=== PATIENT | female | born 1950 | race Caucasian/White ===

== ENCOUNTER 2018-11-07 20:19 | Inpatient (IN) | payer OTHER ==
[~2018-11-07] VITALS: Ht 162.6 cm; Wt 59.2 kg
[~2018-11-07 20:19] MED LIST: LEVO137T7; SERT50TA
[2018-11-07] MEDS ORDERED: CEFEPIME 2GM/50 ML (PMX) 50 ML IVPB STA (20:24)
[2018-11-07] MEDS ORDERED: SODIUM CHLORIDE 0.9% 1L BAG IV* STA (20:24)
[2018-11-07] MEDS ORDERED: VANCOMYCIN 1 GM (PMX) 250 ML IVPB ONE (20:30)
--- NOTE | 2018-11-07 20:43 | ERD ---
ER Documentation Chief Complaint Chief Complaint bib ra from halfway for possible stemi / weakness, HPI This is a 68-year-old female with a prior history of metastatic renal cancer, which involves the bones, and the brain, who presents for altered mental state. History was limited secondary to the acuity of the patient's condition. She was brought in by EMS, reportedly she is a no x4 at baseline, and today she has been nonverbal. Per the run, she has been hot to the touch, she does have a history of a pacemaker, and was noted to be tachycardic on arrival. She is coming from a intermediate facility, and she had a prolonged stay at [facility]. ROS All systems reviewed and are negative except as per history of present illness. Medications Home Meds Reported Medications Sertraline Hcl* (Zoloft*) 50 Mg Tablet 10/30/10 Levothyroxine Sodium (Levothroid) 137 Mcg Tablet 10/30/10 Allergies Allergies: Coded Allergies: No Known Allergies (Verified Allergy, Mild, 10/30/10) PMhx/Soc History of Surgery: Yes (PACEMAKER INSERTION/CYST REMOVED FROM RT BREAST SHOULDER SX/WRIST SX) Anesthesia Reaction: No Hx Neurological Disorder: No Hx Respiratory Disorders: Yes (SLEEP APNEA ON CPAP) Hx Psychiatric Problems: No Hx Miscellaneous Medical Probl: No Hx Alcohol Use: No Hx Substance Use: No Hx Tobacco Use: No Smoking Status: Never smoker Physical Exam Vitals Vital Signs Date Temp Pulse Resp B/P (MAP) Pulse Ox O2 O2 Flow FiO2 Time Delivery Rate 11/07/18 Nasal 2 20:27 Cannula 11/07/18 Nasal 2.0 20:27 Cannula 11/07/18 101.0 115 20 115/82 90 Nasal 20:27 (93) Cannula 11/07/18 101.0 117 25 115/82 96 20:22 (93) Physical Exam Const: Ill-appearing 68-year-old female, who is opening her eyes sp ontaneously, but is nonverbal, she is hot to the touch. Head: Atraumatic, no hematomas noted Eyes: Normal Conjunctiva, pupils equal round reactive to light ENT: Normal External Ears, Nose and Mouth. Neck: Full range of motion. No meningismus. Resp: Breath sounds are coarse bilaterally Cardio: Tachycardic, no murmurs Abd: Soft, non tender, non distended. Normal bowel sounds Skin: No petechiae or rashes Back: No midline or flank tenderness Ext: No cyanosis, or edema Neur: Patient is awake, responds to voice, nonverbal Psych: Unable to assess Result Diagram: 11/07/18202911/07/182029 Results 24 hrs Laboratory Tests Test 11/07/18 20:30 White Blood Count 11.0 10^3/ul Red Blood Count 3.67 10^6/ul Hemoglobin 10.2 g/dl Hematocrit 30.5 % Mean Corpuscular Volume 83.1 fl Mean Corpuscular Hemoglobin 27.8 pg Mean Corpuscular Hemoglobin Concent 33.4 g/dl Red Cell Distribution Width 17.1 % Platelet Count 39 10^3/UL Mean Platelet Volume 11.5 fl Immature Granulocytes % 3.100 % Neutrophils % % Lymphocytes % % Monocytes % % Eosinophils % % Basophils % % Nucleated Red Blood Cells % 0.2 /100WBC Immature Granulocytes # 0.340 10^3/ul Neutrophils # 10^3/ul Lymphocytes # 10^3/ul Monocytes # 10^3/ul Eosinophils # 10^3/ul Basophils # 10^3/ul Nucleated Red Blood Cells # 10^3/ul Prothrombin Time 13.2 Sec Prothrombin Time Ratio 1.0 INR International Normalized Ratio 0.99 Activated Partial Thromboplast Time 28.4 Sec Sodium Level 125 mmol/L Potassium Level 5.8 mmol/L Chloride Level 86 mmol/L Carbon Dioxide Level 24 mmol/L Anion Gap 15 Blood Urea Nitrogen 95 mg/dl Creatinine 1.21 mg/dl Est Glomerular Filtrat Rate mL/min 44 mL/min Glucose Level 106 mg/dl Lactic Acid Level 1.8 mmol/L Calcium Level 8.0 mg/dl Total Bilirubin 3.7 mg/dl Direct Bilirubin 2.90 mg/dl Indirect Bilirubin 0.8 mg/dl Aspartate Amino Transf (AST/SGOT) 47 IU/L Alanine Aminotransferase (ALT/SGPT) 22 IU/L Alkaline Phosphatase 145 IU/L Troponin I < 0.012 ng/ml Total Protein 6.1 g/dl Albumin 2.9 g/dl Globulin 3.20 g/dl Albumin/Globulin Ratio 0.90 Current Medications Medications Dose Sig/Pearl Start Time Status Last (Trade) Ordered Route PRN Stop Time Admin Dose Reason Admin Sodium 1,000 ml BOLUS OVER 2 11/07/18 DC 11/07/18 Chloride HOURS STAT 20:24 20:39 (NS) IV* 11/07/18 20:28 Cefepime HCl 50 ml @ ONCE STAT 11/07/18 DC 11/07/18 100 mls/hr IVPB 20:24 20:47 11/07/18 20:53 Vancomycin 250 ml @ ONCE ONCE 11/07/18 11/07/18 HCl 125 mls/hr IVPB 20:30 21:23 11/07/18 22:29 Procedures/MDM This 68-year-old female with a prior history of metastatic renal cancer who presents for evaluation of altered mental state in the setting of fever. Exam revealed no meningeal signs, I suspect that she most likely has bacteremia in setting of sepsis. She was given vancomycin and cefepime, she had no neurologic decline during her ED evaluation, her CT brain was negative for acute findings. Her LFTs were elevated, I have no prior comparison, she has no peritoneal signs on abdominal exam, and she does not appear jaundiced. A mild leukocytosis was also noted. Patient had no evidence of severe sepsis. Accepting Care Team: Current data and ongoing care discussed. Primary: Zack Consulting: None Outstanding Data: none Sepsis Documentation: Patient's infectious symptoms have not stabilized and the patient is at risk of rapid decompensation. The patient will be admitted for careful hydration, antibiotic therapy, and infectious source control. CRITICAL CARE Critical care time [35] minutes Emergent fluid management while maintaining close respiratory support. Provision of immediate and broad-spectrum antibiotic therapy. Simultaneous assessment for possible sources in order to direct targeted therapy. Consideration for invasive and chemical support to prevent cardiopulmonary collapse. Critical care time is independent of procedures performed. Chest X-ray 1V Interpreted by me: Soft Tissue: No acute abnormalities Bones: No acute abnormalities Mediastinum/Cardiac Silhouette/Lungs: Interstitial infiltrates noted, more pronounced on the right side EKG: Rate/Rhythm: Bifascicular block, tachycardic with rate of 117 QRS, ST, T-waves: No changes consistent w/ acute ischemia Impression: No evidence of ischemia or arrhythmia Departure Diagnosis: Primary Impression: Altered mental state Altered mental status type: unspecified Qualified Codes: R41.82 - Altered mental status, unspecified Additional Impressions: Sepsis Sepsis type: sepsis due to unspecified organism Qualified Codes: A41.9 - Sepsis, unspecified organism Acute weakness Condition: Serious KARISHMA KENDRICK MD Nov 07, 2018 20:43
[2018-11-07 22:03] VITALS: PULSE 108
[2018-11-07] MEDS ORDERED: IPRATROPIUM (NEB) 0.5 MG/2.5 ML AMP HHN PRN (23:00)
[2018-11-07] MEDS ORDERED: DEXTROSE 5%-0.45% NACL 1,000 ML IV SCH ×2 (23:00→23:35)
[2018-11-07] MEDS ORDERED: NA POLYST SULFON 15 GM/60 ML BTL PR ONE (23:00)
[2018-11-07 23:07] VITALS: Ht 162.6 cm; Wt 59.2 kg
[2018-11-07] MEDS: LEVALBUTEROL (NEB) 0.63 MG/3 ML AMP HHN PRN (23:23)
[2018-11-07] MEDS ORDERED: LEVO125T PO (23:45)
[2018-11-07] MEDS ORDERED: MAGN400O19 PO (23:45)
[2018-11-07] MEDS ORDERED: SENN-120 PO (23:45)
[2018-11-07] MEDS ORDERED: CLON-379 PO (23:45)
[2018-11-07] MEDS ORDERED: multivitamin ORAL (23:45)
[2018-11-07] MEDS ORDERED: MORP30TA3 PO (23:45)
[2018-11-07] MEDS ORDERED: AMLO5TAB4 PO (23:45)
[2018-11-07] MEDS ORDERED: DIL4I IV (23:45)
[2018-11-07] MEDS ORDERED: DEXA4TAB PO (23:45)
[2018-11-07] MEDS ORDERED: fleet enema RECTAL (23:45)
[2018-11-07] MEDS ORDERED: MIRALAX ORAL (23:45)
[2018-11-07] MEDS ORDERED: OXYC-279 PO (23:45)
[2018-11-07] MEDS ORDERED: Lidocaine patch TOPICAL (23:45)
[2018-11-07] MEDS ORDERED: TIZA2TAB PO (23:45)
[2018-11-07] MEDS ORDERED: BISA-57 PO (23:45)
[2018-11-07] MEDS ORDERED: CALC600T24 PO (23:45)
[2018-11-07] MEDS ORDERED: ACET325T33 PO (23:45)
[2018-11-07] MEDS ORDERED: Melatonin (23:45)
[2018-11-07] MEDS ORDERED: FAMO20TA18 PO (23:45)
--- NOTE | 2018-11-07 23:46 | HP ---
Date/Time of Note Date/Time of Note DATE: 11/07/18 TIME: 23:46 Assessment/Plan VTE Prophylaxis SCD contraindicated: low risk/ambulating Pharmacological prophylaxis: NA/contraindicated Pharm contraindication: thrombocytopenia (Thrombocytopenia) Lines/Catheters IV Catheter Type (from Nrs): Saline Lock Assessment/Plan Assessment/Plan 1. Altered mentation: Likely from narcotic overdose and sepsis -Head CT negative in the ER -Trial of Narcan -will obtain additional brain imaging to evaluate for metastasis. Note however that patient has a pacemaker and also a carlos in the right lower extremity -Treat sepsis 2. Sepsis: As evidenced by fever, tachycardia: Secondary to influenza -When patient more alert, will start Tamiflu. If prolonged, will place an NG tube -ID consult 3. Metastatic renal cell carcinoma, to bone: -Patient has been following up CD4 and per daughter she was supposed to start treatment today -Reach out to her oncologist at [facility] in a.m. -Oncology consult -Day MD to call Dr. Yeung (pt's Urologist) [phone] 4. Bicytopenia, with thrombocytopenia and anemia: Likely malignancy related -Monitor and transfuse as needed 5. History of pacemaker: No acute issue 6. 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 Hyponatremia: likely from dehydration. Ns IVF 8. Hyperkalemia: kayexalate given [facility] 9. Presumed JULIETH: IVF. Nephrology consult in am Result Diagram: 11/07/18202911/07/182029 Results 24hrs Laboratory Tests Test 11/07/18 20:30 11/07/18 21:15 11/07/18 23:05 White Blood Count 11.0 H Red Blood Count 3.67 L Hemoglobin 10.2 L Hematocrit 30.5 L Mean Corpuscular Volume 83.1 Mean Corpuscular Hemoglobin 27.8 L Mean Corpuscular 33.4 Hemoglobin Concent Red Cell Distribution Width 17.1 H Platelet Count 39 L Mean Platelet Volume 11.5 H Immature Granulocytes % 3.100 H Neutrophils % Segmented Neutrophils % (Manual) 71 Band Neutrophils % (Manual) 24 H Lymphocytes % Monocytes % Monocytes % (Manual) 2 Eosinophils % Basophils % Metamyelocytes % (manual) 1 H Myelocytes % (Manual) 1 H Promyelocytes % (Manual) 1 H Nucleated Red Blood Cells % 0.2 H Immature Granulocytes # 0.340 H Neutrophils # Neutrophils # (Manual) 8.1 H Band Neutrophils # 2.6 H Lymphocytes # Monocytes # Monocytes # (Manual) 0.2 L Eosinophils # Basophils # Metamyelocytes # 0.1 H Myelocytes # 0.1 H Promyelocytes # 0.1 H Nucleated Red Blood Cells # Platelet Estimate SIG DECREASED Poikilocytosis 2+ Macrocytosis 1+ Prothrombin Time 13.2 Prothrombin Time Ratio 1.0 INR International 0.99 Normalized Ratio Activated Partial Thromboplast 28.4 Time Sodium Level 125 L Potassium Level 5.8 H Chloride Level 86 L Carbon Dioxide Level 24 Anion Gap 15 H Blood Urea Nitrogen 95 H Creatinine 1.21 H Est Glomerular Filtrat 44 L Rate mL/min Glucose Level 106 Lactic Acid Level 1.8 1.3 Calcium Level 8.0 L Total Bilirubin 3.7 H Direct Bilirubin 2.90 H Indirect Bilirubin 0.8 Aspartate Amino Transf (AST/SGOT) 47 H Alanine 22 Aminotransferase (ALT/SGPT) Alkaline Phosphatase 145 H Troponin I < 0.012 Total Protein 6.1 Albumin 2.9 L Globulin 3.20 Albumin/Globulin Ratio 0.90 Urine Color VINNY Urine Clarity CLOUDY A Urine pH 5.0 Urine Specific [place] 1.017 Urine Ketones NEGATIVE Urine Nitrite NEGATIVE Urine Bilirubin 1+ H Urine Urobilinogen 2+ H Urine Leukocyte Esterase NEGATIVE Urine Microscopic RBC 4 Urine Microscopic WBC 2 Urine Bacteria FEW A Urine Mucus FEW A Urine Hemoglobin NEGATIVE Urine Glucose NEGATIVE Urine Total Protein NEGATIVE HPI/ROS Admit Date/Time Admit Date/Time Nov 07, 2018 at 21:25 Hx of Present Illness Patient is a 68-year-old female with a history of pacemaker, sleep apnea, hypothyroidism, excision of neoplasm from occipital scalp in 2010 and 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 Patient was brought to the ER for altered mentation and lethargy. There was also an initial concern for STEMI, in the ER EKG without ST elevation. Because of the patient's mentation, information was obtained from the daughter, Florence and from chart review ER physician. She said up until 5 days ago, patient was alert. Patient resides at a facility. She has been receiving MS Contin, Dilaudid, OxyContin, Zanaflex. As far as her cancer is concerned, it was diagnosed in August. Patient had right femur surgery for fracture related to metastasis. There is a questionable brain metastasis, however head CT in the ER was negative. She has been following up at [facility]. Her daughter, she was supposed to start treatment today, however because of her mentation and lethargy, she did not receive. When presented to ER, she was febrile, tachycardic. Influenza A was positive. Labs shows a sodium of 125, potassium 5.8, WBC 11, BUN 95, creatinine 1.21, hemoglobin 10, platelet 39. PMH/Family/Social Past Medical History Medical History: other (See HPI) Medications Current Medications Dextrose/Sodium Chloride 1,000 ml @ 75 mls/hr [id number] IV ; Start 11/07/18 at 23:00 Levalbuterol (Xopenex Neb) 0.63 mg Q3H RESP THERAPY PRN HHN WHEEZING AND SOB Last administered on 11/07/18at 23:23; Admin Dose 0.63 MG; Start 11/07/18 at 23:00 Ipratropium [place] (Atrovent 0.02% (Neb)) 0.5 mg Q3H RESP THERAPY PRN HHN WHEEZING AND SOB Last administered on 11/07/18at 23:23; Admin Dose 0.5 MG; Start 11/07/18 at 23:00 Dextrose/Sodium Chloride 1,000 ml @ 75 mls/hr [id number] IV ; Start 11/07/18 at 23:35 IV Flush (NS 3 ml) 3 ml PER PROTOCOL IV ; Start 11/08/18 at 00:00 Ondansetron HCl (Zofran Inj) 4 mg Q6H PRN IV NAUSEA/VOMITING; Start 11/08/18 at 00:00 Albuterol/ Ipratropium (Duoneb) 3 ml Q2H RESP THERAPY PRN HHN SHORTNESS OF BREATH; Start 11/08/18 at 00:00 Coded Allergies: No Known Allergies (Verified Allergy, Mild, 10/30/10) Past Surgical History Past Surgical Hx: other (See HPI) Family History Significant Family History: no pertinent family hx Social History Alcohol Use: none Smoking Status: Never smoker Drug Use: none Exam/Review of Systems Vital Signs Vitals Vital Signs Date Temp Pulse Resp B/P (MAP) Pulse Ox O2 O2 Flow FiO2 Time Delivery Rate 11/07/18 92 6.0 23:24 11/07/18 112 22 Nasal 23:24 Cannula 11/07/18 121/65 21:33 (83) 11/07/18 101.0 20:27 Exam Constitutional: other (Patient lethargic. Not oriented) Head: normocephalic, atraumatic Eyes: PERRL Respiratory: normal air movement Cardiovascular: other (Tachycardic regular rhythm) Gastrointestinal: soft Extremities: other ([place] noted in the right eye. Lids clean. No sign of infection.) EROS KEE MD Nov 07, 2018 23:46
[2018-11-08] VITALS (48 sets, daily range): BP systolic 53–153; BP diastolic 24–136; PULSE 95–138; RESP 12–31
[2018-11-08] MEDS ORDERED: NACL 0.9% 3 ML SYG IV SCH
[2018-11-08] MEDS ORDERED: ONDANSETRON 4 MG INJ IV PRN
[2018-11-08] MEDS ORDERED: ALBUTEROL/IPRATROPIUM (NEB) 3 ML AMP HHN PRN
[2018-11-08] MEDS ORDERED: VANCOMYCIN 1 GM 250 ML IVPB ONE (00:17)
[2018-11-08] MEDS: DEXTROSE 5%-0.9% NACL 1,000 ML IV SCH ×3 (03:46→20:03)
[2018-11-08] MEDS ORDERED: ONDA4TAB13 PO (03:53)
[2018-11-08] MEDS: ACETAMINOPHEN 650 MG SUPP PR PRN ×2 (05:29→16:30)
[2018-11-08] MEDS ORDERED: NALOXONE (0.4 MG/ML) INJ ONE ×3 (05:41→05:48)
[2018-11-08] MEDS ORDERED: NALOXONE 2 MG SYG IV ONE ×2 (06:00)
--- NOTE | 2018-11-08 06:27 | EN ---
Date/Time of Note Date/Time of Note DATE: 11/08/18 TIME: 06:24 Event Note Medicine Medicine Event Note An HOG CUTTER was called about an hour ago because patient was found to be unresponsive. When I arrived to patient's room, patient was breathing through her mouth and she was not responsive to verbal or painful stimuli. Vitals show hypoxia. Patient was given Narcan, which made her awake. She became however agitated moving her extremities. PLAN -ABG -Transfer to ICU -Avoid narcotics -Patient was admitted last night. See HPI for more info EROS KEE MD Nov 08, 2018 06:27
[2018-11-08] MEDS: LEVALBUTEROL (NEB) 0.63 MG/3 ML AMP HHN PRN (08:24)
[2018-11-08] MEDS ORDERED: SOD CHLORIDE 0.9% 1,000 ML IV ONE (08:30)
[2018-11-08] MEDS: PHENYLephrine 20MG IN 250 ML 250 ML IV SCH ×4 (15:30→19:54)
[2018-11-08] MEDS ORDERED: VANCOMYCIN IV PER PHARMACY XX SCH (16:30)
[2018-11-08] MEDS ORDERED: PROPOFOL 100 ML ONE (16:53)
[2018-11-08] MEDS: PROPOFOL 100 ML IV SCH (17:00)
--- NOTE | 2018-11-08 17:04 | PN ---
Date/Time of Note Date/Time of Note DATE: 11/08/18 TIME: 16:57 Assessment/Plan VTE Prophylaxis Risk score (from [facility])>0 risk: 6 SCD applied (from [facility]): Yes Pharmacological prophylaxis: NA/contraindicated Pharm contraindication: renal impairment Assessment/Plan Hospital Course 1. Acute metabolic/toxic encephalopathy secondary to narcotic overdose and or sepsis -Head CT negative in the ER -Patient had a trial of Narcan with no significant -MRI brain unable to be done as patient has a pacemaker and also a carlos in the r ight lower extremity -Broad-spectrum antibiotics 2. Sepsis likely secondary to aspiration pneumonia and/or influenza -When patient more alert, will start Tamiflu. If prolonged, will place an NG tube -Vancomycin and Zosyn -Chest x-ray is suggestive of pneumonia 3. Metastatic renal cell carcinoma, to bone: -Patient has been following up CD4 and per daughter she was supposed to start treatment today -Reach out to her oncologist at [facility] in a.m. -Day MD to call Dr. Yeung (pt's Urologist) [phone] 4. Bicytopenia, with thrombocytopenia and anemia: Likely malignancy related -Monitor and transfuse as needed 5. History of pacemaker: No acute issue 6. 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 Hyponatremia: likely from dehydration -Continue normal saline 8. Hyperkalemia: kayexalate given [place] 9. Presumed JULIETH-improved -Continue IV fluid -Nephrology consult in am if creatinine still elevated Prophylaxis: SCD's Result Diagram: 11/08/18 0504 11/08/18 0504 Results 24hrs Laboratory Tests Test 11/07/18 20:30 11/07/18 21:15 11/07/18 23:05 11/08/18 02:10 White Blood 11.0 H Count Red Blood Count 3.67 L Hemoglobin 10.2 L Hematocrit 30.5 L Mean Corpuscular 83.1 Volume Mean Corpuscular 27.8 L Hemoglobin Mean Corpuscular 33.4 Hemoglobin [place] Red Cell 17.1 H Distribution Width Platelet Count 39 L Mean Platelet 11.5 H Volume Immature 3.100 H Granulocytes % Neutrophils % Segmented 71 Neutrophils % (Manual) Band Neutrophils 24 H % (Manual) Lymphocytes % Monocytes % Monocytes % 2 (Manual) Eosinophils % Basophils % Metamyelocytes % 1 H (manual) Myelocytes % 1 H (Manual) Promyelocytes % 1 H (Manual) Nucleated Red 0.2 H Blood Cells % Immature 0.340 H Granulocytes # Neutrophils # Neutrophils # 8.1 H (Manual) Band Neutrophils 2.6 H # Lymphocytes # Monocytes # Monocytes # 0.2 L (Manual) Eosinophils # Basophils # Metamyelocytes # 0.1 H Myelocytes # 0.1 H Promyelocytes # 0.1 H Nucleated Red Blood Cells # Platelet SIG DECREASED Estimate Poikilocytosis 2+ Macrocytosis 1+ Prothrombin Time 13.2 Prothrombin Time 1.0 Ratio INR 0.99 International Normalized Ratio Activated 28.4 Partial Thrombop last Time Sodium Level 125 L Potassium Level 5.8 H Chloride Level 86 L Carbon Dioxide 24 Level Anion Gap 15 H Blood Urea 95 H Nitrogen Creatinine 1.21 H Est Glomerular 44 L Filtrat Rate mL/min Glucose Level 106 Lactic Acid 1.8 1.3 1.3 Level Calcium Level 8.0 L Total Bilirubin 3.7 H Direct Bilirubin 2.90 H Indirect 0.8 Bilirubin Aspartate Amino 47 H Transf (AST/SGOT ) Alanine 22 Aminotransferase (ALT/SGPT) Alkaline 145 H Phosphatase Troponin I < 0.012 < 0.012 Total Protein 6.1 Albumin 2.9 L Globulin 3.20 Albumin/Globulin 0.90 Ratio Urine Color VINNY Urine Clarity CLOUDY A Urine pH 5.0 Urine Specific 1.017 Spring Urine Ketones NEGATIVE Urine Nitrite NEGATIVE Urine Bilirubin 1+ H Urine 2+ H Urobilinogen Urine Leukocyte NEGATIVE Esterase Urine 4 Microscopic RBC Urine 2 Microscopic WBC Urine Bacteria FEW A Urine Mucus FEW A Urine Hemoglobin NEGATIVE Urine Glucose NEGATIVE Urine Total NEGATIVE Protein Creatine Kinase 23 Creatine Kinase 3.0 Index Creatinine 0.68 Kinase MB (Mass) Test 11/08/18 05:04 11/08/18 05:40 11/08/18 06:27 11/08/18 08:18 White Blood 8.9 Count Red Blood Count 3.58 L Hemoglobin 10.0 L Hematocrit 29.7 L Mean Corpuscular 83.0 Volume Mean Corpuscular 27.9 L Hemoglobin Mean Corpuscular 33.7 Hemoglobin [place] Red Cell 17.7 H Distribution Width Platelet Count 39 L Mean Platelet 12.4 H Volume Immature 2.400 H Granulocytes % Neutrophils % Segmented 39 Neutrophils % (Manual) Band Neutrophils 56 H % (Manual) Lymphocytes % Lymphocytes % 1 L (Manual) Monocytes % Monocytes % 2 (Manual) Eosinophils % Basophils % Myelocytes % 1 H (Manual) Promyelocytes % 1 H (Manual) Nucleated Red 0.2 H Blood Cells % Immature 0.210 H Granulocytes # Neutrophils # Neutrophils # 3.9 (Manual) Band Neutrophils 4.9 H # Lymphocytes 0.0 L (Manual) Lymphocytes # Monocytes # Monocytes # 0.1 L (Manual) Eosinophils # Basophils # Myelocytes # 0.0 Promyelocytes # 0.0 Nucleated Red Blood Cells # Platelet SIG DECREASED Estimate Giant Platelets 3 H Polychromasia 3+ Poikilocytosis 2+ Anisocytosis 1+ Macrocytosis 1+ Target Cells 2+ Ovalocytes 1+ Sodium Level 131 L Potassium Level 5.5 H Chloride Level 94 L Carbon Dioxide 24 Level Anion Gap 13 Blood Urea 97 H Nitrogen Creatinine 1.10 H Est Glomerular 49 L Filtrat Rate mL/min Glucose Level 140 Hemoglobin A1c 5.8 Calcium Level 7.4 L Magnesium Level 2.7 H Total Bilirubin 3.4 H Direct Bilirubin 2.70 H Indirect 0.7 Bilirubin Aspartate Amino 52 H Transf (AST/SGOT ) Alanine 22 Aminotransferase (ALT/SGPT) Alkaline 139 H Phosphatase Total Protein 5.5 L Albumin 2.6 L Globulin 2.90 Albumin/Globulin 0.89 Ratio Triglycerides 293 H Level Cholesterol 85 L Level LDL Cholesterol, 7 Calculated HDL Cholesterol 19 L Cholesterol/HDL 4.4 Ratio Thyroid < 0.015 L Stimulating Hormone (TSH) Bedside Glucose 143 Blood Gas Blood arterial Specimen Source Arterial Blood 11/08/2018 6:36: Date Drawn 00 AM Arterial Blood 7.419 pH (Temp corrected) Arterial Blood 32.9 L pCO2 (Temp correct) Arterial Blood 113.1 H pO2 (Temp corrected) Arterial Blood 20.8 L HCO3 Arterial Blood -3.0 Base Excess Arterial Blood 97.8 Oxygen Saturatio n Frantz Test ACCEPTAB Arterial Blood Left Radial Gas Puncture Site Arterial 0.8 Blood Carboxyhem oglobin Arterial Blood 0.3 Methemoglobin Blood Gas A-a O2 567.0 H Differential Oxyhemoglobin 96.7 Percent Blood Gas 37.0 Temperature Blood Gas 24.0 Respiration Rate Blood Gas MASK - NRB Modality FiO2 100.0 Blood Gas Reina Nguyen Notified Whom Blood Gas 11/08/2018 6:45: Notified Time 00 AM Creatine Kinase 27 Creatine Kinase 2.1 Index Creatinine 0.58 Kinase MB (Mass) Troponin I 0.023 Test 11/08/18 14:06 Blood Gas Blood arterial Specimen Source Arterial Blood 11/08/2018 2:16: Date Drawn 48 PM Arterial Blood 7.301 L pH (Temp corrected) Arterial Blood 43.6 pCO2 (Temp correct) Arterial Blood 67.1 L pO2 (Temp corrected) Arterial Blood 21.0 L HCO3 Arterial Blood -5.1 L Base Excess Arterial Blood 89.4 L Oxygen Saturatio n Frantz Test N/A Arterial Blood Right Brachial Gas Puncture Site Arterial 0.7 Blood Carboxyhem oglobin Arterial Blood 0.3 Methemoglobin Blood Gas A-a O2 385.1 H Differential Oxyhemoglobin 88.5 L Percent Blood Gas 37.0 Temperature Blood Gas HFNC Modality FiO2 70.0 Blood Gas MDA Notified Whom Blood Gas 11/08/2018 2:20: Notified Time 29 PM Subjective 24 Hr Interval Summary Subjective hx not possible: pt non-verbal Exam/Review of Systems Exam Vitals Vital Signs Date Temp Pulse Resp B/P (MAP) Pulse Ox O2 O2 Flow FiO2 Time Delivery Rate 11/08/18 120 16 107/43 100 16:15 (64) 11/08/18 103.1 16:00 11/08/18 70 15:15 11/08/18 Nasal 08:25 Cannula 11/07/18 6.0 23:24 Intake and Output 11/07/18 11/07/18 11/08/18 1515:00 23:00 07:00 IntakeIntake Total 100 ml BalanceBalance 100 ml Constitutional: non-verbal ENMT: intubated Respiratory: clear to auscultation Cardiovascular: regular rate and rhythm Gastrointestinal: soft; No distended Musculoskeletal: nl extremities to inspection Results Results 24hrs Laboratory Tests Test 11/07/18 20:30 11/07/18 21:15 11/07/18 23:05 11/08/18 02:10 White Blood 11.0 H Count Red Blood Count 3.67 L Hemoglobin 10.2 L Hematocrit 30.5 L Mean Corpuscular 83.1 Volume Mean Corpuscular 27.8 L Hemoglobin Mean Corpuscular 33.4 Hemoglobin [place] Red Cell 17.1 H Distribution Width Platelet Count 39 L Mean Platelet 11.5 H Volume Immature 3.100 H Granulocytes % Neutrophils % Segmented 71 Neutrophils % (Manual) Band Neutrophils 24 H % (Manual) Lymphocytes % Monocytes % Monocytes % 2 (Manual) Eosinophils % Basophils % Metamyelocytes % 1 H (manual) Myelocytes % 1 H (Manual) Promyelocytes % 1 H (Manual) Nucleated Red 0.2 H Blood Cells % Immature 0.340 H Granulocytes # Neutrophils # Neutrophils # 8.1 H (Manual) Band Neutrophils 2.6 H # Lymphocytes # Monocytes # Monocytes # 0.2 L (Manual) Eosinophils # Basophils # Metamyelocytes # 0.1 H Myelocytes # 0.1 H Promyelocytes # 0.1 H Nucleated Red Blood Cells # Platelet SIG DECREASED Estimate Poikilocytosis 2+ Macrocytosis 1+ Prothrombin Time 13.2 Prothrombin Time 1.0 Ratio INR 0.99 International Normalized Ratio Activated 28.4 Partial Thrombop last Time Sodium Level 125 L Potassium Level 5.8 H Chloride Level 86 L Carbon Dioxide 24 Level Anion Gap 15 H Blood Urea 95 H Nitrogen Creatinine 1.21 H Est Glomerular 44 L Filtrat Rate mL/min Glucose Level 106 Lactic Acid 1.8 1.3 1.3 Level Calcium Level 8.0 L Total Bilirubin 3.7 H Direct Bilirubin 2.90 H Indirect 0.8 Bilirubin Aspartate Amino 47 H Transf (AST/SGOT ) Alanine 22 Aminotransferase (ALT/SGPT) Alkaline 145 H Phosphatase Troponin I < 0.012 < 0.012 Total Protein 6.1 Albumin 2.9 L Globulin 3.20 Albumin/Globulin 0.90 Ratio Urine Color VINNY Urine Clarity CLOUDY A Urine pH 5.0 Urine Specific 1.017 Spring Urine Ketones NEGATIVE Urine Nitrite NEGATIVE Urine Bilirubin 1+ H Urine 2+ H Urobilinogen Urine Leukocyte NEGATIVE Esterase Urine 4 Microscopic RBC Urine 2 Microscopic WBC Urine Bacteria FEW A Urine Mucus FEW A Urine Hemoglobin NEGATIVE Urine Glucose NEGATIVE Urine Total NEGATIVE Protein Creatine Kinase 23 Creatine Kinase 3.0 Index Creatinine 0.68 Kinase MB (Mass) Test 11/08/18 05:04 11/08/18 05:40 11/08/18 06:27 11/08/18 08:18 White Blood 8.9 Count Red Blood Count 3.58 L Hemoglobin 10.0 L Hematocrit 29.7 L Mean Corpuscular 83.0 Volume Mean Corpuscular 27.9 L Hemoglobin Mean Corpuscular 33.7 Hemoglobin [place] Red Cell 17.7 H Distribution Width Platelet Count 39 L Mean Platelet 12.4 H Volume Immature 2.400 H Granulocytes % Neutrophils % Segmented 39 Neutrophils % (Manual) Band Neutrophils 56 H % (Manual) Lymphocytes % Lymphocytes % 1 L (Manual) Monocytes % Monocytes % 2 (Manual) Eosinophils % Basophils % Myelocytes % 1 H (Manual) Promyelocytes % 1 H (Manual) Nucleated Red 0.2 H Blood Cells % Immature 0.210 H Granulocytes # Neutrophils # Neutrophils # 3.9 (Manual) Band Neutrophils 4.9 H # Lymphocytes 0.0 L (Manual) Lymphocytes # Monocytes # Monocytes # 0.1 L (Manual) Eosinophils # Basophils # Myelocytes # 0.0 Promyelocytes # 0.0 Nucleated Red Blood Cells # Platelet SIG DECREASED Estimate Giant Platelets 3 H Polychromasia 3+ Poikilocytosis 2+ Anisocytosis 1+ Macrocytosis 1+ Target Cells 2+ Ovalocytes 1+ Sodium Level 131 L Potassium Level 5.5 H Chloride Level 94 L Carbon Dioxide 24 Level Anion Gap 13 Blood Urea 97 H Nitrogen Creatinine 1.10 H Est Glomerular 49 L Filtrat Rate mL/min Glucose Level 140 Hemoglobin A1c 5.8 Calcium Level 7.4 L Magnesium Level 2.7 H Total Bilirubin 3.4 H Direct Bilirubin 2.70 H Indirect 0.7 Bilirubin Aspartate Amino 52 H Transf (AST/SGOT ) Alanine 22 Aminotransferase (ALT/SGPT) Alkaline 139 H Phosphatase Total Protein 5.5 L Albumin 2.6 L Globulin 2.90 Albumin/Globulin 0.89 Ratio Triglycerides 293 H Level Cholesterol 85 L Level LDL Cholesterol, 7 Calculated HDL Cholesterol 19 L Cholesterol/HDL 4.4 Ratio Thyroid < 0.015 L Stimulating Hormone (TSH) Bedside Glucose 143 Blood Gas Blood arterial Specimen Source Arterial Blood 11/08/2018 6:36: Date Drawn 00 AM Arterial Blood 7.419 pH (Temp corrected) Arterial Blood 32.9 L pCO2 (Temp correct) Arterial Blood 113.1 H pO2 (Temp corrected) Arterial Blood 20.8 L HCO3 Arterial Blood -3.0 Base Excess Arterial Blood 97.8 Oxygen Saturatio n Frantz Test ACCEPTAB Arterial Blood Left Radial Gas Puncture Site Arterial 0.8 Blood Carboxyhem oglobin Arterial Blood 0.3 Methemoglobin Blood Gas A-a O2 567.0 H Differential Oxyhemoglobin 96.7 Percent Blood Gas 37.0 Temperature Blood Gas 24.0 Respiration Rate Blood Gas MASK - NRB Modality FiO2 100.0 Blood Gas L. Nguyen Notified Whom Blood Gas 11/08/2018 6:45: Notified Time 00 AM Creatine Kinase 27 Creatine Kinase 2.1 Index Creatinine 0.58 Kinase MB (Mass) Troponin I 0.023 Test 11/08/18 14:06 Blood Gas Blood arterial Specimen Source Arterial Blood 11/08/2018 2:16: Date Drawn 48 PM Arterial Blood 7.301 L pH (Temp corrected) Arterial Blood 43.6 pCO2 (Temp correct) Arterial Blood 67.1 L pO2 (Temp corrected) Arterial Blood 21.0 L HCO3 Arterial Blood -5.1 L Base Excess Arterial Blood 89.4 L Oxygen Saturatio n Frantz Test N/A Arterial Blood Right Brachial Gas Puncture Site Arterial 0.7 Blood Carboxyhem oglobin Arterial Blood 0.3 Methemoglobin Blood Gas A-a O2 385.1 H Differential Oxyhemoglobin 88.5 L Percent Blood Gas 37.0 Temperature Blood Gas HFNC Modality FiO2 70.0 Blood Gas MDA Notified Whom Blood Gas 11/08/2018 2:20: Notified Time 29 PM Medications Medication Current Medications Levalbuterol (Xopenex Neb) 0.63 mg Q3H RESP THERAPY PRN HHN WHEEZING AND SOB Last administered on 11/08/18at 08:24; Admin Dose 0.63 MG; Start 11/07/18 at 23:00 Ipratropium [place] (Atrovent 0.02% (Neb)) 0.5 mg Q3H RESP THERAPY PRN HHN WHEEZING AND SOB Last administered on 11/07/18at 23:23; Admin Dose 0.5 MG; Start 11/07/18 at 23:00 IV Flush (NS 3 ml) 3 ml PER PROTOCOL IV ; Start 11/08/18 at 00:00 Ondansetron HCl (Zofran Inj) 4 mg Q6H PRN IV NAUSEA/VOMITING; Start 11/08/18 at 00:00 Albuterol/ Ipratropium (Duoneb) 3 ml Q2H RESP THERAPY PRN HHN SHORTNESS OF BREATH; Start 11/08/18 at 00:00 Dextrose/Sodium Chloride 1,000 ml @ 100 mls/hr Q10H IV Last administered on 11/08/18at 03:46; Admin Dose 100 MLS/HR; Start 11/08/18 at 02:00 Acetaminophen (Tylenol Supp) 650 mg Q6H PRN [place] FEVER OR PAIN Last administered on 11/08/18at 05:29; Admin Dose 650 MG; Start 11/08/18 at 05:00 Phenylephrine HCl 250 ml @ 75 mls/hr TITRATE IV Last administered on 11/08/18at 15:30; Admin Dose 150 MLS/HR; Start 11/08/18 at 14:30 Piperacillin Sod/ Tazobactam Sod 100 ml @ 200 mls/hr Q6 IVPB ; Start 11/08/18 at 18:00 Vancomycin HCl (Vanco Iv Per Pharmacy) VANCOMYCIN PER PHARMACY PER PROTOCOL XX ; Start 11/08/18 at 16:30 Vancomycin HCl 250 ml @ 125 mls/hr Q24H IVPB ; Start 11/08/18 at 18:00 JOANNE ARIAS Nov 08, 2018 17:04
[2018-11-08] MEDS: PIPER-TAZO 3.375 GM IV (PMX) 100 ML IVPB SCH (17:47)
[2018-11-08] MEDS: VANCOMYCIN 1 GM 250 ML IVPB SCH (17:48)
[2018-11-08] MEDS ORDERED: PHENYLephrine 40 MG in SOD CHLORIDE 0.9% 496 ML IV SCH ×2 (18:00→19:00)
[2018-11-08] MEDS: OSELTAMIVIR 30 MG CAP PO SCH (20:02)
[2018-11-09] VITALS (82 sets, daily range): BP systolic 67–123; BP diastolic 31–79; PULSE 88–148; RESP 19–25
[2018-11-09] MEDS: PIPER-TAZO 3.375 GM IV (PMX) 100 ML IVPB SCH ×4 (00:18→18:25)
[2018-11-09] MEDS ORDERED: AMIODARONE 150MG/D5W BOLUS 100 ML ONE (00:39)
[2018-11-09] MEDS: VASOPRESSIN 60 UNIT in DEXTROSE 5% 57 ML IV SCH ×2 (01:00→15:19)
[2018-11-09] MEDS ORDERED: AMIODARONE 150MG/D5W BOLUS 100 ML IV ONE (01:00)
[2018-11-09] MEDS: AMIODARONE 900 MG in DEXTROSE 5% 482 ML IV SCH (01:01)
[2018-11-09] MEDS ORDERED: ADENOSINE 3 MG/ML SYRINGE IV ONE ×2 (01:16→01:27)
[2018-11-09] MEDS ORDERED: ADENOSINE 6 MG INJ IV ONE ×3 (01:30)
[2018-11-09] MEDS: PHENYLephrine 80 MG in DEXTROSE 5% 242 ML IV SCH ×5 (02:07→21:02)
[2018-11-09] MEDS: PROPOFOL 100 ML IV SCH ×2 (06:05→18:30)
[2018-11-09] MEDS: DEXTROSE 5%-0.9% NACL 1,000 ML IV SCH (07:45)
--- NOTE | 2018-11-09 09:32 | PN ---
Date/Time of Note Date/Time of Note DATE: 11/09/18 TIME: 09:32 Assessment/Plan VTE Prophylaxis Risk score (from [facility])>0 risk: 9 SCD applied (from [facility]): Yes Pharmacological prophylaxis: NA/contraindicated Pharm contraindication: thrombocytopenia Lines/Catheters IV C[facility]ter Type (from [facility] Central Line Central line still needed: Yes Urinary Cath still in place: Yes Reason Cath still needed: other (indicate) Assessment/Plan Hospital Course 68-year-old female with a history of metastatic renal cell carcinoma who was br ought to the emergency room for altered mentation and lethargy and progressed to respiratory failure requiring ventilator support currently managed as follows: 1. Acute encephalopathy -Multifactorial, medication versus sepsis 2. Sepsis secondary to bilateral pneumonia as well as gram-negative carlos bacteremia 3. Acute respiratory failure ventilator dependence 4. Acute renal insufficiency improving 5. Hyperbilirubinemia -Cause unclear at this time, hepatic metastases? hemolysis? 6. Severely low TSH 7. Status post SVT requiring adenosine dosing patient now maintained on amiodarone drip. 8. Worsening hypochromic anemia with thrombocytopenia, related to metastasis? 9. Metastatic renal cell carcinoma with metastases to bone, femur and ribs 10. Influenza A+ 11. History of pacemaker 12. Recent metastasis related to femoral fracture 13. 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 Dyslipidemia with low HDL and hypertriglyceridemia who is Plan: -Patient is not looking good today, will plan to discuss with pulmonary to adjust vent settings if indicated -Continue empiric antibiotics with Zosyn, vancomycin and Tamiflu for antiviral -Infectious disease consultation -Continue pressor support and wean as tolerated, patient is requiring 3 pressors at this time -Transfuse packed red cells to help with anemia -Overall prognosis extremely poor -Continue ICU supportive care -Ongoing discussions between palliative care and the family at this time, will follow up findings Care time : >50mins Result Diagram: 11/09/18 0415 11/09/18 0415 Results 24hrs Laboratory Tests Test 11/08/18 14:06 11/08/18 16:46 11/08/18 17:43 11/08/18 21:00 Blood Gas Blood arterial Blood Blood Specimen arterial arterial Source Arterial Blood 11/08/2018 2:16: 11/08/2018 5:44 11/08/2018 9:25 Date Drawn 48 PM :27 PM :26 PM Arterial Blood 7.301 L 7.251 *L 7.325 L pH (Temp corrected ) Arterial Blood 43.6 49.5 H 36.7 pCO2 (Temp correct) Arterial Blood 67.1 L 113.2 H 135.6 H pO2 (Temp corrected ) Arterial Blood 21.0 L 21.3 L 18.7 L HCO3 Arterial Blood -5.1 L -5.8 L -6.6 L Base Excess Arterial Blood 89.4 L 97.3 98.1 H Oxygen Saturati on Frantz Test N/A N/A N/A Arterial Blood Right Brachial Right Radial Right Gas Brachial Puncture Site Arterial 0.7 0.7 0.6 Blood Carboxyhe moglobin Arterial Blood 0.3 0.3 0.3 Methemoglobin Blood Gas A-a 385.1 H 332.7 H 324.1 H O2 Differential Oxyhemoglobin 88.5 L 96.3 97.2 Percent Blood Gas 37.0 37.0 37.0 Temperature Blood Gas HFNC VENT - AC VENT - AC Modality FiO2 70.0 70.0 70.0 Blood Gas MDA MDA KM Notified Whom Blood Gas 11/08/2018 2:20: 11/08/2018 5:48 11/08/2018 9:37 Notified Time 29 PM :28 PM :39 PM Lactic Acid 1.7 Level Blood Gas 14.0 20.0 Respiration Rate Blood Gas 15 20 Actual Respiration Rat e Blood Gas Tidal 500.0 500.0 Volume Blood Gas Low 5.0 5.0 PEEP Setting Blood Gas NKHAN R.N. Critical Value Read Back Blood Gas 33.0 Inspiratory Pressure Test 11/09/18 00:45 11/09/18 04:15 Sodium Level 136 136 Potassium Level 4.4 4.4 Chloride Level 105 # 109 Carbon Dioxide 20 L 18 L Level Anion Gap 11 9 Blood Urea 92 H 85 H Nitrogen Creatinine 1.02 H 0.86 Est Glomerular 54 L > 60 Filtrat Rate mL/min Glucose Level 153 246 H Calcium Level 6.2 L 6.4 L Magnesium Level 2.5 2.6 H White Blood 6.3 # Count Red Blood Count 2.66 #L Hemoglobin 7.5 #L Hematocrit 23.1 #L Mean 86.8 Corpuscular Volume Mean 28.2 L Corpuscular Hemoglobin Mean 32.5 Corpuscular Hemoglobin Conc ent Red Cell 18.6 H Distribution Width Platelet Count 27 #*L Mean Platelet Volume Immature 2.100 H Granulocytes % Neutrophils % Segmented 26 L Neutrophils % (Manual) Band 55 H Neutrophils % (Manual) Lymphocytes % Lymphocytes % 2 L (Manual) Monocytes % Monocytes % 7 (Manual) Eosinophils % Basophils % Metamyelocytes 6 H % (manual) Myelocytes % 4 H (Manual) Nucleated Red 2 H Blood Cells % Immature 0.130 H Granulocytes # Neutrophils # Neutrophils # 1.9 (Manual) Band 3.4 H Neutrophils # Lymphocytes 0.1 L (Manual) Lymphocytes # Monocytes # Monocytes # 0.4 (Manual) Eosinophils # Basophils # Metamyelocytes 0.3 H # Myelocytes # 0.2 H Nucleated Red Blood Cells # Platelet SIG DECREASED Estimate Polychromasia 1+ Hypochromasia 2+ Poikilocytosis 2+ Anisocytosis 1+ Macrocytosis 1+ Ovalocytes 1+ Phosphorus 6.4 H Level Subjective 24 Hr Interval Summary Free Text/Dictation intubated in ICU on pressors, agonal even on vent Subjective hx not possible: pt critical status Exam/Review of Systems Exam Vitals Vital Signs Date Temp Pulse Resp B/P (MAP) Pulse Ox O2 O2 Flow FiO2 Time Delivery Rate 11/09/18 99 19 110/39 98 Mechanical 08:30 (62) Ventilator 11/09/18 99.4 07:30 11/09/18 70 05:19 11/07/18 6.0 23:24 Intake and Output 11/08/18 11/08/18 11/09/18 1414:59 22:59 06:59 IntakeIntake Total 200 ml 3615.182 ml 2443.274 ml OutputOutput Total 360 ml 340 ml 455 ml BalanceBalance -160 ml 3275.182 ml 1988.274 ml Constitutional: frail, other (labored breathing ); No alert Eyes: icteric; No other (fixed and dilated ) Respiratory: labored breathing, other (no over breathing vent ) Cardiovascular: other (tachycardia ) Gastrointestinal: bowel sounds (hypoactive ), distended, firm Genitourinary - Female: other (valval edema ) Extremities: other (pedal fullness) Results Results 24hrs Laboratory Tests Test 11/08/18 14:06 11/08/18 16:46 11/08/18 17:43 11/08/18 21:00 Blood Gas Blood arterial Blood Blood Specimen arterial arterial Source Arterial Blood 11/08/2018 2:16: 11/08/2018 5:44 11/08/2018 9:25 Date Drawn 48 PM :27 PM :26 PM Arterial Blood 7.301 L 7.251 *L 7.325 L pH (Temp corrected ) Arterial Blood 43.6 49.5 H 36.7 pCO2 (Temp correct) Arterial Blood 67.1 L 113.2 H 135.6 H pO2 (Temp corrected ) Arterial Blood 21.0 L 21.3 L 18.7 L HCO3 Arterial Blood -5.1 L -5.8 L -6.6 L Base Excess Arterial Blood 89.4 L 97.3 98.1 H Oxygen Saturati on Frantz Test N/A N/A N/A Arterial Blood Right Brachial Right Radial Right Gas Brachial Puncture Site Arterial 0.7 0.7 0.6 Blood Carboxyhe moglobin Arterial Blood 0.3 0.3 0.3 Methemoglobin Blood Gas A-a 385.1 H 332.7 H 324.1 H O2 Differential Oxyhemoglobin 88.5 L 96.3 97.2 Percent Blood Gas 37.0 37.0 37.0 Temperature Blood Gas HFNC VENT - AC VENT - AC Modality FiO2 70.0 70.0 70.0 Blood Gas MDA MDA KM Notified Whom Blood Gas 11/08/2018 2:20: 11/08/2018 5:48 11/08/2018 9:37 Notified Time 29 PM :28 PM :39 PM Lactic Acid 1.7 Level Blood Gas 14.0 20.0 Respiration Rate Blood Gas 15 20 Actual Respiration Rat e Blood Gas Tidal 500.0 500.0 Volume Blood Gas Low 5.0 5.0 PEEP Setting Blood Gas NKHAN R.N. Critical Value Read Back Blood Gas 33.0 Inspiratory Pressure Test 11/09/18 00:45 11/09/18 04:15 Sodium Level 136 136 Potassium Level 4.4 4.4 Chloride Level 105 # 109 Carbon Dioxide 20 L 18 L Level Anion Gap 11 9 Blood Urea 92 H 85 H Nitrogen Creatinine 1.02 H 0.86 Est Glomerular 54 L > 60 Filtrat Rate mL/min Glucose Level 153 246 H Calcium Level 6.2 L 6.4 L Magnesium Level 2.5 2.6 H White Blood 6.3 # Count Red Blood Count 2.66 #L Hemoglobin 7.5 #L Hematocrit 23.1 #L Mean 86.8 Corpuscular Volume Mean 28.2 L Corpuscular Hemoglobin Mean 32.5 Corpuscular Hemoglobin Conc ent Red Cell 18.6 H Distribution Width Platelet Count 27 #*L Mean Platelet Volume Immature 2.100 H Granulocytes % Neutrophils % Segmented 26 L Neutrophils % (Manual) Band 55 H Neutrophils % (Manual) Lymphocytes % Lymphocytes % 2 L (Manual) Monocytes % Monocytes % 7 (Manual) Eosinophils % Basophils % Metamyelocytes 6 H % (manual) Myelocytes % 4 H (Manual) Nucleated Red 2 H Blood Cells % Immature 0.130 H Granulocytes # Neutrophils # Neutrophils # 1.9 (Manual) Band 3.4 H Neutrophils # Lymphocytes 0.1 L (Manual) Lymphocytes # Monocytes # Monocytes # 0.4 (Manual) Eosinophils # Basophils # Metamyelocytes 0.3 H # Myelocytes # 0.2 H Nucleated Red Blood Cells # Platelet SIG DECREASED Estimate Polychromasia 1+ Hypochromasia 2+ Poikilocytosis 2+ Anisocytosis 1+ Macrocytosis 1+ Ovalocytes 1+ Phosphorus 6.4 H Level Imaging Imaging PROCEDURE: XR Chest. CLINICAL INDICATION: Intubated TECHNIQUE: A single AP view of the chest was obtained. COMPARISON: DR CHEST 11/08/2018; CHEST 11/07/2018; CT CHEST 10/07/2018 FINDINGS: The endotracheal tube tip is 3.5 cm above the samantha. There is a left subclavian dual chamber pacemaker. There are bilateral interstitial opacities, left greater than right. No pleural effusion or pneumothorax is seen. The cardiomediastinal silhouette is within normal limits for size. Calcifications are seen within the aortic arch. The osseous structures demonstrate senescent changes. There is a soft tissue lesion along the left posterior lateral seventh rib. IMPRESSION: 1. Left greater than right bilateral interstitial opacities may reflect edema or pneumonia. Findings are significantly increased when compared to the prior examination. 2. Left posterior lateral seventh rib lesion, as noted on prior CT. 3. Aortic atherosclerosis. 4. Tubes and lines, as described above. RPTAT: HH .Bessy Alvarado MD, MD Date Time Electronically viewed and signed by .Bessy Alvarado MD, on 11/08/2018 16:10 .G/ CC: TULIO SANTIAGO MD [phone] Medications Medication Current Medications Levalbuterol (Xopenex Neb) 0.63 mg Q3H RESP THERAPY PRN HHN WHEEZING AND SOB Last administered on 11/08/18at 08:24; Admin Dose 0.63 MG; Start 11/07/18 at 23:00 Ipratropium [place] (Atrovent 0.02% (Neb)) 0.5 mg Q3H RESP THERAPY PRN HHN WHEEZING AND SOB Last administered on 11/07/18at 23:23; Admin Dose 0.5 MG; Start 11/07/18 at 23:00 IV Flush (NS 3 ml) 3 ml PER PROTOCOL IV ; Start 11/08/18 at 00:00 Ondansetron HCl (Zofran Inj) 4 mg Q6H PRN IV NAUSEA/VOMITING; Start 11/08/18 at 00:00 Albuterol/ Ipratropium (Duoneb) 3 ml Q2H RESP THERAPY PRN HHN SHORTNESS OF BREATH; Start 11/08/18 at 00:00 Acetaminophen (Tylenol Supp) 650 mg Q6H PRN IA FEVER OR PAIN Last administered on 11/08/18at 16:30; Admin Dose 650 MG; Start 11/08/18 at 05:00 Piperacillin Sod/ Tazobactam Sod 100 ml @ 200 mls/hr Q6 IVPB Last administered on 11/09/18at 06:04; Admin Dose 200 MLS/HR; Start 11/08/18 at 18:00 Vancomycin HCl (Vanco Iv Per Pharmacy) VANCOMYCIN PER PHARMACY PER PROTOCOL XX ; Start 11/08/18 at 16:30 Vancomycin HCl 250 ml @ 125 mls/hr Q24H IVPB Last administered on 11/08/18at 17:48; Admin Dose 125 MLS/HR; Start 11/08/18 at 18:00 Propofol 100 ml @ 1.776 mls/ hr Q12H IV Last administered on 11/09/18 06:05; Admin Dose 5.328 MLS/HR; Start 11/08/18 at 17:00 Oseltamivir Phosphate (Tamiflu) 30 mg BID PO Last administered on 3/31/19at 20:02; Admin Dose 30 MG; Start 11/08/18 at 20:00 Phenylephrine HCl 80 mg/Dextrose 250 ml @ 18.75 mls/ hr TITRATE IV Last administered on 11/09/18at 07:18; Admin Dose 56.25 MLS/HR; Start 11/09/18 at 00:30 Amiodarone HCl 900 mg/Dextrose 500 ml @ 0 mls/hr Q0M IV Last administered on 11/09/18at 01:01; Admin Dose 33 MLS/HR; Start 11/09/18 at 01:00 Norepinephrine 32 mg/Dextrose 250 ml @ 0.47 mls/hr TITRATE IV ; Start 11/09/18 at 01:00 Vasopressin 60 unit/Dextrose 60 ml @ 1.2 mls/hr Q12H IV Last administered on 11/09/18at 01:00; Admin Dose 1.2 MLS/HR; Start 11/09/18 at 01:00 KEANU JORGENSEN Nov 09, 2018 09:32
[2018-11-09] MEDS: OSELTAMIVIR 30 MG CAP PO SCH ×2 (10:20→21:01)
--- NOTE | 2018-11-09 11:28 | CONS ---
DATE OF ADMISSION: 11/07/2018 DATE OF CONSULTATION: REASON FOR CONSULTATION: Shortness of breath, respiratory distress. Thank you, Dr. Dixon, for this consultation. HISTORY OF PRESENT ILLNESS: This is an unfortunate 68-year-old lady with history of metastatic renal cell carcinoma who presented with worsening respiratory distress requiring emergent intubation and m echanical ventilation. Since that time, she has labored breathing on multiple vasopressors. PAST MEDICAL HISTORY: 1. Renal cell carcinoma with metastasis. 2. Thrombocytopenia. 3. History of pacemaker. 4. Electrolyte abnormalities. MEDICATIONS: Per chart. ALLERGIES: NONE. SOCIAL HISTORY: She is a nonsmoker, no alcohol, no history of drug use. FAMILY HISTORY: Noncontributory. SYSTEMS REVIEW: A 12-point review of systems currently unable to perform. PHYSICAL EXAMINATION: GENERAL: Chronically ill appearing lady, lethargic on mechanical ventilation. VITAL SIGNS: Temperature 99, pulse is 100, blood pressure 110/60, on two vasopressors. Orally intub ated. HEENT: Jaundiced pupils. NECK: Supple. No JVD or lymphadenopathy. CARDIAC: S1, S2, no added sounds or murmurs. CHEST: Diminished air entry bilaterally with rales. ABDOMEN: Mildly distended. EXTREMITIES: No cyanosis, clubbing, 1+ edema. NEUROLOGIC: Generalized weakness. LABORATORY DATA: White count 6.3, hemoglobin 7.5, platelets of 27, BUN 85, creatinine 0.86. INR was 0.99. Arterial blood gas yesterday, pH 7.32, pCO2 36, pO2 of 135, bicarbonate was 18. Chest x-ray shows bilateral infiltrates. IMPRESSION AND PLAN: 1. Acute hypoxemic respiratory failure. 2. Possible aspiration pneumonia versus healthcare-associated pneumonia. 3. Metastatic renal cell carcinoma. 4. Encephalopathy, toxic metabolic. 5. Severe septic shock secondary to above. 6. Renal insufficiency, likely acute tubular necrosis injury. The patient will require: 1. Continue fluid management. 2. Broad-spectrum antibiotics. 3. Vasopressor. 4. Mechanical ventilation. 5. Monitor cell counts. 6. DVT and GI prophylaxis. 7. Palliative care consult given extremely poor overall prognosis. Dictated By: TESSA OKEFEE MD SV/DARIUS Conf#: [id number] DID#: [id number] CC: EROS DIXON MD; KEANU JORGENSEN MD;*EndCC*
[2018-11-09] MEDS ORDERED: CALCIUM GLUCONATE 10% 2 GM in DEXTROSE 5% 100 ML IVPB ONE (15:30)
--- NOTE | 2018-11-09 17:26 | CONS ---
DATE OF ADMISSION: 11/07/2018 DATE OF CONSULTATION: 11/09/2018 TYPE OF CONSULTATION: Infectious disease. REASON FOR CONSULTATION: Antibiotic management. HISTORY OF PRESENT ILLNESS: Rosa Franklin is a 68-year-old female who was brought in from longterm and is being seen for antibiotic management. She has history of metastatic renal cancer which invol ves the bone and the brain. She presented with altered mental status. She was brought in by EMS and has been nonverbal on admission. She was hot to the touch. She has a history of pacemaker and was tachycardic on arrival in the emergency room. Her past problems include: 1. Metastatic renal carcinoma. 2. Altered mental status. 3. Surgery status post pacemaker insertion. 4. Cyst removed from the right breast. 5. Shoulder surgery. 6. Wrist surgery. 7. Sleep apnea on CPAP. Acutely, the patient came in with a temperature of 101 and otherwise vital signs are stable. Her whi te count was 11,000, H and H of 10.2 and 30.5, platelet count of 39,000. BUN and creatinine is 95/1. 21. The patient was initially started on vancomycin and cefepime. She had no neurological decline d uring her ED evaluation. CT scan of the brain was negative for acute findings. LFTs were elevated. She was hydrated, put on antibiotics. Emergent fluid and respiratory support were given. Her initi al x-ray showed mild atelectasis at the lung base. A renal ultrasound showed no evidence of obstruct fina uropathy or calculus. She had an 8.9 x 5.6 x 7.6 cm solid mass in the upper pole of the right ki dney compatible with renal cell carcinoma. Chest x-ray on 11/08/2018 showed left greater than right interstitial opacities which may reflect edema or pneumonia. Findings are significant when compared to the initial exam. Left posterior lateral 7th rib lesion noted on CT scan. Left subclavian dual c hamber pacemaker. Blood culture grew out gram-negative rods. Her influenza A was positive. Urine c ulture was negative. The patient was intubated on 11/08/2018 and also she has a triple lumen cathete r in the right groin and a Hatch catheter in place. Her altered mentation was thought to be likely f rom narcotic overdose and sepsis. The patient was started on Tamiflu on 11/07/2018. NG tube was george flo and OG tube was placed. She was felt to have acute metabolic and toxic encephalopathy. She was on vancomycin and Zosyn as well as Tamiflu. Currently, she is on vasopressors, phenylephrine. She i s on Tamiflu, vancomycin and Zosyn. The patient is extremely ill at this point. She appears chronic ally ill with multiple ecchymoses. She is on 2 vasopressors. She has an ET tube, OG tube, Hatch, tr iple lumen catheter and left-sided dual chamber pacemaker. PHYSICAL EXAMINATION: SKIN: Without generalized rash. HEENT: She has some evidence of jaundice. NECK: Supple. LYMPH NODES: None palpable. CHEST: Decreased breath sounds at the bases. HEART: Without murmur or gallop. ABDOMEN: Soft, distended, nontender without organosplenomegaly or masses. EXTREMITIES: Without cyanosis, clubbing or edema. RECTAL AND GENITAL: Deferred. NEUROLOGIC: No focal neurological abnormalities. Difficult to evaluate since the patient is intubat ed on a respirator and sedated. IMPRESSION AND PLAN: The patient has influenza A, but in addition had gram-negative rods in her bloo d which I doubt is a contaminant. She also may have secondary infection with Staphylococcus and ther efore treat her with vancomycin, Zosyn and Tamiflu is indicated especially since she is on vasopresso rs, phenylephrine and amiodarone. I will dictate my findings to the hospitalist and to Dr. Giraldo. Dictated By: JOÃO SELF MD, JD/NTS Conf#: [id number] DID#: [id number] CC: TESSA GIRALDO MD; EROS KEE MD; KEANU JORGENSEN MD;*[facility]*
[2018-11-09] MEDS: VANCOMYCIN 1 GM 250 ML IVPB SCH (19:15)
[2018-11-09] MEDS: ARTIFICIAL TEARS 15 ML OPH BOTH EYES SCH ×2 (19:56→21:29)
[2018-11-10] VITALS (105 sets, daily range): BP systolic 64–146; BP diastolic 36–127; PULSE 74–148; RESP 20–32
[2018-11-10] MEDS: PIPER-TAZO 3.375 GM IV (PMX) 100 ML IVPB SCH ×3 (00:08→13:00)
[2018-11-10] MEDS: AMIODARONE 900 MG in DEXTROSE 5% 482 ML IV SCH (01:33)
[2018-11-10] MEDS: PHENYLephrine 80 MG in DEXTROSE 5% 242 ML IV SCH ×5 (01:55→20:19)
[2018-11-10] MEDS: VASOPRESSIN 60 UNIT in DEXTROSE 5% 57 ML IV SCH ×2 (01:56→13:00)
[2018-11-10] MEDS: PROPOFOL 100 ML IV SCH ×3 (06:01→20:17)
[2018-11-10] MEDS ORDERED: NA BICARBONATE 8.4% 50 ML SYG IV ONE (08:30)
[2018-11-10] MEDS: OSELTAMIVIR 30 MG CAP PO SCH ×2 (08:45→20:20)
[2018-11-10] MEDS: ARTIFICIAL TEARS 15 ML OPH BOTH EYES SCH ×4 (08:46→20:21)
[2018-11-10] MEDS: SODIUM BICARBONATE (IV ADD) 100 MEQ in DEXTROSE 5% 1,000 ML IV SCH ×2 (09:32→20:20)
[2018-11-10] MEDS: NORepinephrine 32 MG in DEXTROSE 5% 218 ML IV SCH (09:40)
[2018-11-10] MEDS ORDERED: DIGOXIN 500 MCG INJ IV ONE ×2 (10:25→10:30)
[2018-11-10] MEDS ORDERED: ADENOSINE 6 MG INJ IV ONE ×2 (10:30)
[2018-11-10] MEDS: FENTAnyl (DRIP) 1000 mcg/100mL 100 ML IV SCH ×2 (11:04→23:57)
[2018-11-10] MEDS: SOD CHLORIDE 0.9% 1,000 ML IV SCH ×2 (11:20→23:50)
--- NOTE | 2018-11-10 11:22 | CONS ---
Consult Date/Type/Reason Admit Date/Time Nov 07, 2018 at 21:25 Initial Consult Date Type of Consult Pulmonary Date/Time of Note DATE: 11/10/18 TIME: 11:21 Subjective Patient continues vasopressors sinus tachycardia this morning. Objective Vital Signs Date Temp Pulse Resp B/P (MAP) Pulse Ox O2 O2 Flow FiO2 Time Delivery Rate 11/10/18 129 28 64/46 (52) 94 09:45 11/10/18 Mechanical 09:00 Ventilator 11/10/18 99.8 08:00 11/10/18 45 05:10 11/07/18 6.0 23:24 Intake and Output 11/09/18 11/09/18 11/10/18 1515:00 23:00 07:00 IntakeIntake Total 823.00 ml 1182.580 ml 664.466 ml OutputOutput Total 215 ml 260 ml 160 ml BalanceBalance 608.00 ml 922.580 ml 504.466 ml Exam PHYSICAL EXAMINATION: GENERAL: Chronically ill appearing lady, lethargic on mechanical ventilation. VITAL SIGNS: HEENT: Jaundiced pupils. NECK: Supple. No JVD or lymphadenopathy. CARDIAC: S1, S2, no added sounds or murmurs. CHEST: Diminished air entry bilaterally with rales. ABDOMEN: Mildly distended. EXTREMITIES: No cyanosis, clubbing, 1+ edema. NEUROLOGIC: Generalized weakness. Vent Setting Ventilator Support Mode: AC Fraction of Inspired Oxygen pe: 45 Positive End Expiratory Pressu: 5.0 Results/Medications Result Diagram: 11/10/18 0400 11/10/18 0400 Results 24 hrs Laboratory Tests Test 11/10/18 04:00 11/10/18 04:51 11/10/18 07:00 White Blood Count 11.6 #H Red Blood Count 3.48 #L Hemoglobin 9.8 #L Hematocrit 30.3 #L Mean Corpuscular Volume 87.1 Mean Corpuscular 28.2 L Hemoglobin Mean Corpuscular 32.3 Hemoglobin Concent Red Cell Distribution 18.4 H Width Platelet Count 21 #*L Mean Platelet Volume Immature Granulocytes % 5.100 H Neutrophils % Segmented Neutrophils 57 % (Manual) Band Neutrophils % 40 H (Manual) Lymphocytes % Lymphocytes % (Manual) 1 L Reactive Lymphocytes 1 H % (Manual) Monocytes % Eosinophils % Basophils % Promyelocytes % 1 H (Manual) Nucleated Red Blood 3 H Cells % Immature Granulocytes # 0.590 H Neutrophils # Neutrophils # (Manual) 7.1 Band Neutrophils # 4.6 H Lymphocytes (Manual) 0.1 L Lymphocytes # Reactive Lymphocytes # 0.1 H Monocytes # Eosinophils # Basophils # Promyelocytes # 0.1 H Nucleated Red Blood Cells # Platelet Estimate SIG DECREASED Giant Platelets 4 H Polychromasia 3+ Poikilocytosis 3+ Anisocytosis 2+ Macrocytosis 2+ Sodium Level 134 L Potassium Level 5.1 Chloride Level 107 Carbon Dioxide Level 13 L Anion Gap 14 H Blood Urea Nitrogen 90 H Creatinine 1.38 H Est Glomerular Filtrat 38 L Rate mL/min Glucose Level 127 # Calcium Level 7.1 L Phosphorus Level 8.7 #H Magnesium Level 2.7 H Lab Scanned Report BLOOD TRANSFUSION Blood Gas Specimen Blood arterial Source Arterial Blood Date 11/10/2018 7:15:01 AM Drawn Arterial Blood pH 7.187 *L (Temp corrected) Arterial Blood pCO2 29.6 L (Temp correct) Arterial Blood pO2 92.5 (Temp corrected) Arterial Blood HCO3 11.0 L Arterial Blood Base -15.9 L Excess Arterial Blood 95.5 Oxygen Saturation Frantz Test N/A Arterial Blood Gas Right Brachial Puncture Site Arterial 0.5 Blood Carboxyhemoglobin Arterial Blood 0.3 Methemoglobin Blood Gas A-a O2 194.7 H Differential Oxyhemoglobin Percent 94.7 Blood Gas Temperature 37.0 Blood Gas Respiration 20.0 Rate Blood Gas Actual 23 Respiration Rate Blood Gas Modality VENT - AC FiO2 45.0 Blood Gas Tidal Volume 500.0 Blood Gas Low PEEP 5.0 Setting Blood Gas Critical [id number] RN Value Read Back Blood Gas Notified Whom TM Blood Gas Notified 11/10/2018 8:05:14 AM Time Medications Current Medications Levalbuterol (Xopenex Neb) 0.63 mg Q3H RESP THERAPY PRN HHN WHEEZING AND SOB Last administered on 11/08/18at 08:24; Admin Dose 0.63 MG; Start 11/07/18 at 23:00 Ipratropium [place] (Atrovent 0.02% (Neb)) 0.5 mg Q3H RESP THERAPY PRN HHN WHEEZING AND SOB Last administered on 11/07/18at 23:23; Admin Dose 0.5 MG; Start 11/07/18 at 23:00 IV Flush (NS 3 ml) 3 ml PER PROTOCOL IV ; Start 11/08/18 at 00:00 Ondansetron HCl (Zofran Inj) 4 mg Q6H PRN IV NAUSEA/VOMITING; Start 11/08/18 at 00:00 Albuterol/ Ipratropium (Duoneb) 3 ml Q2H RESP THERAPY PRN HHN SHORTNESS OF BREATH; Start 11/08/18 at 00:00 Acetaminophen (Tylenol Supp) 650 mg Q6H PRN [place] FEVER OR PAIN Last administered on 11/08/18at 16:30; Admin Dose 650 MG; Start 11/08/18 at 05:00 Piperacillin Sod/ Tazobactam Sod 100 ml @ 200 mls/hr Q6 IVPB Last administered on 11/10/18 05:42; Admin Dose 200 MLS/HR; Start 11/08/18 at 18:00 Vancomycin HCl (Vanco Iv Per Pharmacy) VANCOMYCIN PER PHARMACY PER PROTOCOL XX ; Start 11/08/18 at 16:30 Vancomycin HCl 250 ml @ 125 mls/hr Q24H IVPB Last administered on 11/09/18at 19:15; Admin Dose 125 MLS/HR; Start 11/08/18 at 18:00 Propofol 100 ml @ 1.776 mls/ hr Q12H IV Last administered on 11/10/18 06:01; Admin Dose 5.328 MLS/HR; Start 11/08/18 at 17:00 Oseltamivir Phosphate (Tamiflu) 30 mg BID PO Last administered on 11/10/18 08:45; Admin Dose 30 MG; Start 11/08/18 at 20:00 Phenylephrine HCl 80 mg/Dextrose 250 ml @ 18.75 mls/ hr TITRATE IV Last administered on 11/10/18at 11:03; Admin Dose 56.25 MLS/HR; Start 11/09/18 at 00:30 Amiodarone HCl 900 mg/Dextrose 500 ml @ 0 mls/hr Q0M IV Last administered on 11/10/18 01:33; Admin Dose 16.66 MLS/HR; Start 11/09/18 at 01:00 Norepinephrine 32 mg/Dextrose 250 ml @ 0.47 mls/hr TITRATE IV Last administered on 11/10/18 09:40; Admin Dose 0.47 MLS/HR; Start 11/09/18 at 01:00 Vasopressin 60 unit/Dextrose 60 ml @ 1.2 mls/hr Q12H IV Last administered on 11/10/18at 01:56; Admin Dose 2.4 MLS/HR; Start 11/09/18 at 01:00 Miscellaneous Information (*Rx Drug Level Order Reminder*) VANCO TR 11/10 AT 1700 ONCE ONCE XX ; Start 11/10/18 at 17:00; Stop 11/10/18 at 17:01 Eye Lubricant (Artificial Tears Oph) 2 drop QID BOTH EYES Last administered on 11/10/18at 08:46; Admin Dose 2 DROP; Start 11/09/18 at 17:00 Sodium Bicarbonate 100 meq/Dextrose 1,000 ml @ 75 mls/hr [id number] IV Last administered on 11/10/18at 09:32; Admin Dose 75 MLS/HR; Start 11/10/18 at 09:00 Fentanyl 100 ml @ 2.5 mls/hr TITRATE IV Last administered on 11/10/18at 11:04; Admin Dose 2.5 MLS/HR; Start 11/10/18 at 10:00 Sodium Chloride 1,000 ml @ 75 mls/hr [id number] IV Last administered on 11/10/18at 11:20; Admin Dose 75 MLS/HR; Start 11/10/18 at 10:30 Albumin Human 100 ml @ 100 mls/hr Q8H IV ; Start 11/10/18 at 11:30; Stop 11/11/18 at 04:29; Status UNV Assessment/Plan Hospital Course (Demo Recall) IMPRESSION 1. Acute hypoxemic respiratory failure. 2. Possible aspiration pneumonia versus healthcare-associated pneumonia. 3. Metastatic renal cell carcinoma. 4. Encephalopathy, toxic metabolic. 5. Severe septic shock secondary to above. 6. Renal insufficiency, likely acute tubular necrosis injury. Plan 1. Continue fluid management. 2. Broad-spectrum antibiotics. 3. Vasopressor. Titrate to map of 65 4. Mechanical ventilation. 5. Monitor cell counts. Hold off on platelet transfusion at present no active bleeding. 6. DVT and GI prophylaxis. 7. Palliative care consult given extremely poor overall prognosis. Family wish to continue all current aggressive measures Critical care time 40 minutes prognosis very poor TESSA OKEEFE MD, [facility] Nov 10, 2018 11:22
--- NOTE | 2018-11-10 11:33 | PN ---
Date/Time of Note Date/Time of Note DATE: 11/10/18 TIME: 10:31 Assessment/Plan VTE Prophylaxis Risk score (from Ns)>0 risk: 15 SCD applied (from Ns): Yes Pharmacological prophylaxis: NA/contraindicated Pharm contraindication: thrombocytopenia Lines/Catheters IV Catheter Type (from Nrsg): Central Line Central line still needed: Yes Urinary Cath still in place: Yes Reason Cath still needed: other (indicate) Assessment/Plan Hospital Course S: Intubated and sedated for comfort, but remains on pressor O: Constitutional: frail, other (labored breathing ); No alert Eyes: icteric; OLIVIA, scleral icterus and conjunctival edema Respiratory: labored breathing, other (no over breathing vent ) Cardiovascular: other (tachycardia ) Gastrointestinal: bowel sounds (hypoactive ), distended, firm Genitourinary - Female: other (vulval edema ) Extremities: other (pedal fullness) assessment and plan: 68-year-old female with a history of metastatic renal cell carcinoma who was brought to the emergency room for altered mentation and lethargy and progressed to respiratory failure requiring ventilator support currently managed as follows: Severe sepsis with septic shock Persistent SVTs refractory to amiodarone drip likely 2/ #3 Severe hyperthyroidism Acute ventilator dependent resp failure Bilateral pneumonia with gram negative carlos bacteremia Influenza A infection Metastatic renal cell CA with bony mets and chronic pain Recent pathologic fracture L femur from mets s/p repair Acute toxic metabolic encephalopathy (meds, sepsis) S/p pacemaker Dyslipidemia with low HDL and hypertriglyceridemia Severe anemia s/p transfusion 2 units prbcs Plan: -Severe tachycardia is likely related to hyperthyroidism, will get endo and cardio consult -repeat adenosine X2 unhelpful, will also try one dose of dig -hold off on thyroid replacement till endo review -Continue empiric antibiotics with Zosyn, vancomycin and Tamiflu for antiviral -Continue pressor support and wean as tolerated, patient is requiring 3 pressors at this time -albumin infusion and wean off levo to hopefully help with heart rate -Overall prognosis extremely poor -Continue ICU supportive care -had extensive discussion with elder daughter, recommend DNR Care time : >50mins Result Diagram: 11/10/18 0400 11/10/18 0400 Results 24hrs Laboratory Tests Test 11/10/18 04:00 11/10/18 04:51 11/10/18 07:00 White Blood Count 11.6 #H Red Blood Count 3.48 #L Hemoglobin 9.8 #L Hematocrit 30.3 #L Mean Corpuscular Volume 87.1 Mean Corpuscular 28.2 L Hemoglobin Mean Corpuscular 32.3 Hemoglobin Concent Red Cell Distribution 18.4 H Width Platelet Count 21 #*L Mean Platelet Volume Immature Granulocytes % 5.100 H Neutrophils % Segmented Neutrophils 57 % (Manual) Band Neutrophils % 40 H (Manual) Lymphocytes % Lymphocytes % (Manual) 1 L Reactive Lymphocytes 1 H % (Manual) Monocytes % Eosinophils % Basophils % Promyelocytes % 1 H (Manual) Nucleated Red Blood 3 H Cells % Immature Granulocytes # 0.590 H Neutrophils # Neutrophils # (Manual) 7.1 Band Neutrophils # 4.6 H Lymphocytes (Manual) 0.1 L Lymphocytes # Reactive Lymphocytes # 0.1 H Monocytes # Eosinophils # Basophils # Promyelocytes # 0.1 H Nucleated Red Blood Cells # Platelet Estimate SIG DECREASED Giant Platelets 4 H Polychromasia 3+ Poikilocytosis 3+ Anisocytosis 2+ Macrocytosis 2+ Sodium Level 134 L Potassium Level 5.1 Chloride Level 107 Carbon Dioxide Level 13 L Anion Gap 14 H Blood Urea Nitrogen 90 H Creatinine 1.38 H Est Glomerular Filtrat 38 L Rate mL/min Glucose Level 127 # Calcium Level 7.1 L Phosphorus Level 8.7 #H Magnesium Level 2.7 H Lab Scanned Report BLOOD TRANSFUSION Blood Gas Specimen Blood arterial Source Arterial Blood Date 11/10/2018 7:15:01 AM Drawn Arterial Blood pH 7.187 *L (Temp corrected) Arterial Blood pCO2 29.6 L (Temp correct) Arterial Blood pO2 92.5 (Temp corrected) Arterial Blood HCO3 11.0 L Arterial Blood Base -15.9 L Excess Arterial Blood 95.5 Oxygen Saturation Frantz Test N/A Arterial Blood Gas Right Brachial Puncture Site Arterial 0.5 Blood Carboxyhemoglobin Arterial Blood 0.3 Methemoglobin Blood Gas A-a O2 194.7 H Differential Oxyhemoglobin Percent 94.7 Blood Gas Temperature 37.0 Blood Gas Respiration 20.0 Rate Blood Gas Actual 23 Respiration Rate Blood Gas Modality VENT - AC FiO2 45.0 Blood Gas Tidal Volume 500.0 Blood Gas Low PEEP 5.0 Setting Blood Gas Critical OTIS RN Value Read Back Blood Gas Notified Whom TM Blood Gas Notified 11/10/2018 8:05:14 AM Time Exam/Review of Systems Exam Vitals Vital Signs Date Temp Pulse Resp B/P (MAP) Pulse Ox O2 O2 Flow FiO2 Time Delivery Rate 11/10/18 129 28 64/46 (52) 94 09:45 11/10/18 Mechanical 09:00 Ventilator 11/10/18 99.8 08:00 11/10/18 45 05:10 11/07/18 6.0 23:24 Intake and Output 11/09/18 11/09/18 11/10/18 1515:00 23:00 07:00 IntakeIntake Total 823.00 ml 1182.580 ml 664.466 ml OutputOutput Total 215 ml 260 ml 160 ml BalanceBalance 608.00 ml 922.580 ml 504.466 ml Results Results 24hrs Laboratory Tests Test 11/10/18 04:00 11/10/18 04:51 11/10/18 07:00 White Blood Count 11.6 #H Red Blood Count 3.48 #L Hemoglobin 9.8 #L Hematocrit 30.3 #L Mean Corpuscular Volume 87.1 Mean Corpuscular 28.2 L Hemoglobin Mean Corpuscular 32.3 Hemoglobin Concent Red Cell Distribution 18.4 H Width Platelet Count 21 #*L Mean Platelet Volume Immature Granulocytes % 5.100 H Neutrophils % Segmented Neutrophils 57 % (Manual) Band Neutrophils % 40 H (Manual) Lymphocytes % Lymphocytes % (Manual) 1 L Reactive Lymphocytes 1 H % (Manual) Monocytes % Eosinophils % Basophils % Promyelocytes % 1 H (Manual) Nucleated Red Blood 3 H Cells % Immature Granulocytes # 0.590 H Neutrophils # Neutrophils # (Manual) 7.1 Band Neutrophils # 4.6 H Lymphocytes (Manual) 0.1 L Lymphocytes # Reactive Lymphocytes # 0.1 H Monocytes # Eosinophils # Basophils # Promyelocytes # 0.1 H Nucleated Red Blood Cells # Platelet Estimate SIG DECREASED Giant Platelets 4 H Polychromasia 3+ Poikilocytosis 3+ Anisocytosis 2+ Macrocytosis 2+ Sodium Level 134 L Potassium Level 5.1 Chloride Level 107 Carbon Dioxide Level 13 L Anion Gap 14 H Blood Urea Nitrogen 90 H Creatinine 1.38 H Est Glomerular Filtrat 38 L Rate mL/min Glucose Level 127 # Calcium Level 7.1 L Phosphorus Level 8.7 #H Magnesium Level 2.7 H Lab Scanned Report BLOOD TRANSFUSION Blood Gas Specimen Blood arterial Source Arterial Blood Date 11/10/2018 7:15:01 AM Drawn Arterial Blood pH 7.187 *L (Temp corrected) Arterial Blood pCO2 29.6 L (Temp correct) Arterial Blood pO2 92.5 (Temp corrected) Arterial Blood HCO3 11.0 L Arterial Blood Base -15.9 L Excess Arterial Blood 95.5 Oxygen Saturation Frantz Test N/A Arterial Blood Gas Right Brachial Puncture Site Arterial 0.5 Blood Carboxyhemoglobin Arterial Blood 0.3 Methemoglobin Blood Gas A-a O2 194.7 H Differential Oxyhemoglobin Percent 94.7 Blood Gas Temperature 37.0 Blood Gas Respiration 20.0 Rate Blood Gas Actual 23 Respiration Rate Blood Gas Modality VENT - AC FiO2 45.0 Blood Gas Tidal Volume 500.0 Blood Gas Low PEEP 5.0 Setting Blood Gas Critical OTIS ALONZO Value Read Back Blood Gas Notified Whom TM Blood Gas Notified 11/10/2018 8:05:14 AM Time Medications Medication Current Medications Levalbuterol (Xopenex Neb) 0.63 mg Q3H RESP THERAPY PRN HHN WHEEZING AND SOB Last administered on 11/08/18at 08:24; Admin Dose 0.63 MG; Start 11/07/18 at 23:00 Ipratropium [place] (Atrovent 0.02% (Neb)) 0.5 mg Q3H RESP THERAPY PRN HHN WHEEZING AND SOB Last administered on 11/07/18at 23:23; Admin Dose 0.5 MG; Start 11/07/18 at 23:00 IV Flush (NS 3 ml) 3 ml PER PROTOCOL IV ; Start 11/08/18 at 00:00 Ondansetron HCl (Zofran Inj) 4 mg Q6H PRN IV NAUSEA/VOMITING; Start 11/08/18 at 00:00 Albuterol/ Ipratropium (Duoneb) 3 ml Q2H RESP THERAPY PRN HHN SHORTNESS OF BREATH; Start 11/08/18 at 00:00 Acetaminophen (Tylenol Supp) 650 mg Q6H PRN [place] FEVER OR PAIN Last administered on 11/08/18at 16:30; Admin Dose 650 MG; Start 11/08/18 at 05:00 Piperacillin Sod/ Tazobactam Sod 100 ml @ 200 mls/hr Q6 IVPB Last administered on 11/10/18at 05:42; Admin Dose 200 MLS/HR; Start 11/08/18 at 18:00 Vancomycin HCl (Vanco Iv Per Pharmacy) VANCOMYCIN PER PHARMACY PER PROTOCOL XX ; Start 11/08/18 at 16:30 Vancomycin HCl 250 ml @ 125 mls/hr Q24H IVPB Last administered on 11/09/18at 19:15; Admin Dose 125 MLS/HR; Start 11/08/18 at 18:00 Propofol 100 ml @ 1.776 mls/ hr Q12H IV Last administered on 11/10/18 06:01; Admin Dose 5.328 MLS/HR; Start 11/08/18 at 17:00 Oseltamivir Phosphate (Tamiflu) 30 mg BID PO Last administered on 11/10/18 08:45; Admin Dose 30 MG; Start 11/08/18 at 20:00 Phenylephrine HCl 80 mg/Dextrose 250 ml @ 18.75 mls/ hr TITRATE IV Last administered on 11/10/18 06:19; Admin Dose 56.25 MLS/HR; Start 11/09/18 at 00:30 Amiodarone HCl 900 mg/Dextrose 500 ml @ 0 mls/hr Q0M IV Last administered on 11/10/18at 01:33; Admin Dose 16.66 MLS/HR; Start 11/09/18 at 01:00 Norepinephrine 32 mg/Dextrose 250 ml @ 0.47 mls/hr TITRATE IV Last administered on 11/10/18 09:40; Admin Dose 0.47 MLS/HR; Start 11/09/18 at 01:00 Vasopressin 60 unit/Dextrose 60 ml @ 1.2 mls/hr Q12H IV Last administered on 11/10/18at 01:56; Admin Dose 2.4 MLS/HR; Start 11/09/18 at 01:00 Miscellaneous Information (*Rx Drug Level Order Reminder*) VANCO TR 11/10 AT 1700 ONCE ONCE XX ; Start 11/10/18 at 17:00; Stop 11/10/18 at 17:01 Eye Lubricant (Artificial Tears Oph) 2 drop QID BOTH EYES Last administered on 11/10/18 08:46; Admin Dose 2 DROP; Start 11/09/18 at 17:00 Sodium Bicarbonate 100 meq/Dextrose 1,000 ml @ 75 mls/hr [id number] IV Last administered on 11/10/18 09:32; Admin Dose 75 MLS/HR; Start 11/10/18 at 09:00 Fentanyl 100 ml @ 2.5 mls/hr TITRATE IV ; Start 11/10/18 at 10:00 Adenosine (Adenosine) 6 mg ONCE ONCE IV Last administered on 11/10/18at 10:19; Admin Dose 6 MG; Start 11/10/18 at 10:30; Stop 11/10/18 at 10:31 Adenosine (Adenosine) 12 mg ONCE ONCE IV ; Start 11/10/18 at 10:30; Stop 11/10/18 at 10:31 Sodium Chloride 1,000 ml @ 75 mls/hr [id number] IV ; Start 11/10/18 at 10:30 Digoxin (Digoxin) 125 mcg NOW ONCE IV ; Start 11/10/18 at 10:30; Stop 11/10/18 at 10:31 KEANU JORGENSEN Nov 10, 2018 10:49
[2018-11-10] MEDS: ALBUMIN HUMAN 25% 100 ML IV SCH ×2 (11:47→20:20)
--- NOTE | 2018-11-10 14:05 | CONS ---
Assessment/Plan Assessment/Plan Problems: (1) Acquired hypothyroidism Status: Chronic Comment: Based on her blood test I believe this is probably more likely euthyroid sick as opposed to flako for replacement. I will check free T4 and free T3 measurements to determine where we are and adjust treatment as ap propriate. There is no need at this moment for IV levothyroxine therapy. (2) Sepsis due to Gram-negative organism with septic shock Status: Acute Comment: Blood cultures from the 30th are positive for gram-negative negative rods but is still not growing out fully and microbiology cannot give us an identification as of this moment (3) Respiratory failure with hypoxia and hypercapnia Status: Acute Comment: On ventilator support Qualifiers: Qualified Codes: J96.01 - Acute respiratory failure with hypoxia; J96.02 - Acute respiratory failure with hypercapnia (4) Thrombocytopenia Status: Acute Comment: Due to sepsis (5) Anemia Comment: Partially due to sepsis (6) Influenza A Status: Acute Comment: This is also an active issue for this patient (7) Metastatic renal cell carcinoma Status: Chronic Comment: Noted. Overall prognosis given the current situation is not good Qualifiers: Qualified Codes: C64.1 - Malignant neoplasm of right kidney, except renal pelvis; C79.9 - Secondary malignant neoplasm of unspecified site (8) Dehydration Status: Acute Comment: Sitter fluid bolus (9) Acute renal insufficiency Status: Acute Comment: As above, consider fluid bolus Consultation Date/Type/Reason Admit Date/Time Nov 07, 2018 at 21:25 Date of Consultation: Nov 10, 2018 Type of Consult Endocrinology Reason for Consultation Patient admitted with sepsis, abnormal chest x-ray, ultimately hypercapnic and hyper hypoxemic respiratory failure in the setting of hypokalemia hypernatremia dehydration acute renal insufficiency etc. She has abnormal thyroid function tests. She has a long history of hypothyroidism and has been on thyroid hormone replacement therapy with levothyroxine 125 mcg a day. Requesting Provider: KEANU JORGENSEN Date/Time of Note DATE: 11/10/18 TIME: 13:59 Hx of Present Illness 68-year-old woman with a recent diagnosis roughly last 20 months of metastatic renal cell carcinoma. She is treated at the [facility] local site. She came in from an extended care facility with sepsis, developing shock and respiratory failure. Her thyroid function tests are off-line. Her baseline dosing of levothyroxine is 125 mcg a day. Subjective hx not possible: pt non-verbal, pt critical status Past Medical History Medical History: cancer (Had a static renal cell carcinoma), hypothyroid, other (See HPI) Home Meds Reported Medications Ondansetron Hcl* (Zofran*) 4 Mg Tab, 4 MG PO Q6H PRN for NAUSEA AND OR VOMITING, TAB 11/08/18 Hydromorphone Hcl* (Dilaudid* Inj) 4 Mg/Ml Soln, 0.5 MG IV Q4H PRN for SEVERE PAIN, EA 11/07/18 Tizanidine Hcl* (Zanaflex*) 2 Mg Tablet, 2 MG PO Q6H PRN for SPASTICITY, TAB 11/07/18 Acetaminophen* (Tylenol*) 325 Mg Tablet, 650 MG PO Q4H PRN for fever/pain, TAB 11/07/18 Levothyroxine Sodium* (Synthroid*) 125 Mcg Tablet, 125 MCG PO BEFORE BREAKFAST, #30 TAB 11/07/18 Sennosides* (Senna Lax*) 8.6 Mg Tablet, 2 TAB PO DAILY for constipation, TAB 11/07/18 Oxycodone HCl/Acetaminophen (Percocet 5-325 mg Tablet) 1 Each Tablet, 1 EACH PO Q4 PRN for PAIN, TAB 11/07/18 [multivitamin] No Conflict Check, 1 TAB ORAL DAILY 11/07/18 Morphine Sulfate (Morphine Sulfate ER) 30 Mg Tablet.er, 30 MG PO Q12, TAB 11/07/18 [Miralax powder] No Conflict Check, 17 GM ORAL DAILY for constipation 11/07/18 Magnesium Hydroxide* (Milk Of Magnesia*) 400 Mg/5 Ml Oral.susp, 30 ML PO DAILY PRN for constipation, ML 11/07/18 [Melatonin] No Conflict Check, 0.5 MG HS for insomia 11/07/18 [Lidocaine patch] No Conflict Check, 1 PATCH TOPICAL DAILY for lower back pain 11/07/18 [fleet enema ] No Conflict Check, 1 UNIT RECTAL q72 hours for constipation 11/07/18 Famotidine* (Famotidine*) 20 Mg Tablet, 20 MG PO BID, #60 TAB 11/07/18 Bisacodyl* (Dulcolax*) 5 Mg Tablet.dr, 10 MG PO q48hrs PRN for CONSTIPATION, TAB 11/07/18 Dexamethasone* (Dexamethasone*) 4 Mg Tablet, 4 MG PO BID, TAB 11/07/18 Clonidine Hcl* (Clonidine Hcl*) 0.1 Mg Tab, 0.1 MG PO Q6 PRN for systolic BP >160, TAB 11/07/18 Calcium Carbonate* (Calcium Carbonate*) 600 MG Ca Tab, 1200 MG PO QID PRN for indigestion, TAB 11/07/18 Amlodipine Besylate* (Norvasc*) 5 Mg Tablet, 5 MG PO DAILY, TAB hold for systolic BP < 110 or HR <60 11/07/18 Medications Current Medications Levalbuterol (Xopenex Neb) 0.63 mg Q3H RESP THERAPY PRN HHN WHEEZING AND SOB Last administered on 11/08/18at 08:24; Admin Dose 0.63 MG; Start 11/07/18 at 23:00 Ipratropium [place] (Atrovent 0.02% (Neb)) 0.5 mg Q3H RESP THERAPY PRN HHN WHEEZING AND SOB Last administered on 11/07/18at 23:23; Admin Dose 0.5 MG; Start 11/07/18 at 23:00 IV Flush (NS 3 ml) 3 ml PER PROTOCOL IV ; Start 11/08/18 at 00:00 Ondansetron HCl (Zofran Inj) 4 mg Q6H PRN IV NAUSEA/VOMITING; Start 11/08/18 at 00:00 Albuterol/ Ipratropium (Duoneb) 3 ml Q2H RESP THERAPY PRN HHN SHORTNESS OF BREATH; Start 11/08/18 at 00:00 Acetaminophen (Tylenol Supp) 650 mg Q6H PRN [place] FEVER OR PAIN Last administered on 11/08/18at 16:30; Admin Dose 650 MG; Start 11/08/18 at 05:00 Piperacillin Sod/ Tazobactam Sod 100 ml @ 200 mls/hr Q6 IVPB Last administered on 11/10/18at 13:00; Admin Dose 200 MLS/HR; Start 11/08/18 at 18:00 Vancomycin HCl (Vanco Iv Per Pharmacy) VANCOMYCIN PER PHARMACY PER PROTOCOL XX ; Start 11/08/18 at 16:30 Vancomycin HCl 250 ml @ 125 mls/hr Q24H IVPB Last administered on 11/09/18at 19:15; Admin Dose 125 MLS/HR; Start 11/08/18 at 18:00 Propofol 100 ml @ 1.776 mls/ hr Q12H IV Last administered on 11/10/18 13:00; Admin Dose 3.552 MLS/HR; Start 11/08/18 at 17:00 Oseltamivir Phosphate (Tamiflu) 30 mg BID PO Last administered on 11/10/18 08:45; Admin Dose 30 MG; Start 11/08/18 at 20:00 Phenylephrine HCl 80 mg/Dextrose 250 ml @ 18.75 mls/ hr TITRATE IV Last administered on 11/10/18 11:03; Admin Dose 56.25 MLS/HR; Start 11/09/18 at 00:30 Amiodarone HCl 900 mg/Dextrose 500 ml @ 0 mls/hr Q0M IV Last administered on 11/10/18 01:33; Admin Dose 16.66 MLS/HR; Start 11/09/18 at 01:00 Norepinephrine 32 mg/Dextrose 250 ml @ 0.47 mls/hr TITRATE IV Last administered on 11/10/18 09:40; Admin Dose 0.47 MLS/HR; Start 11/09/18 at 01:00 Vasopressin 60 unit/Dextrose 60 ml @ 1.2 mls/hr Q12H IV Last administered on 11/10/18 01:56; Admin Dose 2.4 MLS/HR; Start 11/09/18 at 01:00 Miscellaneous Information (*Rx Drug Level Order Reminder*) VANCO TR 11/10 AT 1700 1700 ONCE XX ; Start 11/10/18 at 17:00; Stop 11/10/18 at 17:01 Eye Lubricant (Artificial Tears Oph) 2 drop QID BOTH EYES Last administered on 11/10/18 12:59; Admin Dose 2 DROP; Start 11/09/18 at 17:00 Sodium Bicarbonate 100 meq/Dextrose 1,000 ml @ 75 mls/hr [id number] IV Last administered on 11/10/18 09:32; Admin Dose 75 MLS/HR; Start 11/10/18 at 09:00 Fentanyl 100 ml @ 2.5 mls/hr TITRATE IV Last administered on 11/10/18 11:04; Admin Dose 2.5 MLS/HR; Start 11/10/18 at 10:00 Sodium Chloride 1,000 ml @ 75 mls/hr [id number] IV Last administered on 11/10/18at 11:20; Admin Dose 75 MLS/HR; Start 11/10/18 at 10:30 Albumin Human 100 ml @ 100 mls/hr Q8H IV Last administered on 11/10/18at 11:47; Admin Dose 100 MLS/HR; Start 11/10/18 at 11:30; Stop 11/11/18 at 04:29 Allergies: Coded Allergies: No Known Allergies (Verified Allergy, Mild, 10/30/10) Past Surgical History Past Surgical Hx: other (See HPI) Family History Significant Family History: no pertinent family hx Social History Alcohol Use: none Smoking Status: Former smoker Drug Use: none Exam/Review of Systems Exam Vitals Vital Signs Date Temp Pulse Resp B/P (MAP) Pulse Ox O2 O2 Flow FiO2 Time Delivery Rate 11/10/18 132 12:00 11/10/18 21 101/54 96 11:45 (70) 11/10/18 45 11:10 11/10/18 Mechanical 11:00 Ventilator 11/10/18 99.8 08:00 11/07/18 6.0 23:24 Intake and Output 11/09/18 11/09/18 11/10/18 1515:00 23:00 07:00 IntakeIntake Total 823.00 ml 1182.580 ml 664.466 ml OutputOutput Total 215 ml 260 ml 180 ml BalanceBalance 608.00 ml 922.580 ml 484.466 ml Exam Patient is intubated on mechanical ventilation with multiple pressors running and nonresponsive Constitutional: non-verbal Respiratory: clear to auscultation Cardiovascular: nl pulses (Tachycardic) Gastrointestinal: soft, nl liver, spleen Results Result Diagram: 11/10/18 0400 11/10/18 0400 Results 24hrs Laboratory Tests Test 11/10/18 04:00 11/10/18 04:51 11/10/18 07:00 White Blood Count 11.6 #H Red Blood Count 3.48 #L Hemoglobin 9.8 #L Hematocrit 30.3 #L Mean Corpuscular Volume 87.1 Mean Corpuscular 28.2 L Hemoglobin Mean Corpuscular 32.3 Hemoglobin Concent Red Cell Distribution 18.4 H Width Platelet Count 21 #*L Mean Platelet Volume Immature Granulocytes % 5.100 H Neutrophils % Segmented Neutrophils 57 % (Manual) Band Neutrophils % 40 H (Manual) Lymphocytes % Lymphocytes % (Manual) 1 L Reactive Lymphocytes 1 H % (Manual) Monocytes % Eosinophils % Basophils % Promyelocytes % 1 H (Manual) Nucleated Red Blood 3 H Cells % Immature Granulocytes # 0.590 H Neutrophils # Neutrophils # (Manual) 7.1 Band Neutrophils # 4.6 H Lymphocytes (Manual) 0.1 L Lymphocytes # Reactive Lymphocytes # 0.1 H Monocytes # Eosinophils # Basophils # Promyelocytes # 0.1 H Nucleated Red Blood Cells # Platelet Estimate SIG DECREASED Giant Platelets 4 H Polychromasia 3+ Poikilocytosis 3+ Anisocytosis 2+ Macrocytosis 2+ Sodium Level 134 L Potassium Level 5.1 Chloride Level 107 Carbon Dioxide Level 13 L Anion Gap 14 H Blood Urea Nitrogen 90 H Creatinine 1.38 H Est Glomerular Filtrat 38 L Rate mL/min Glucose Level 127 # Calcium Level 7.1 L Phosphorus Level 8.7 #H Magnesium Level 2.7 H Lab Scanned Report BLOOD TRANSFUSION Blood Gas Specimen Blood arterial Source Arterial Blood Date 11/10/2018 7:15:01 AM Drawn Arterial Blood pH 7.187 *L (Temp corrected) Arterial Blood pCO2 29.6 L (Temp correct) Arterial Blood pO2 92.5 (Temp corrected) Arterial Blood HCO3 11.0 L Arterial Blood Base -15.9 L Excess Arterial Blood 95.5 Oxygen Saturation Frantz Test N/A Arterial Blood Gas Right Brachial Puncture Site Arterial 0.5 Blood Carboxyhemoglobin Arterial Blood 0.3 Methemoglobin Blood Gas A-a O2 194.7 H Differential Oxyhemoglobin Percent 94.7 Blood Gas Temperature 37.0 Blood Gas Respiration 20.0 Rate Blood Gas Actual 23 Respiration Rate Blood Gas Modality VENT - AC FiO2 45.0 Blood Gas Tidal Volume 500.0 Blood Gas Low PEEP 5.0 Setting Blood Gas Critical OTIS RN Value Read Back Blood Gas Notified Whom TM Blood Gas Notified 11/10/2018 8:05:14 AM Time Medications Medication Current Medications Levalbuterol (Xopenex Neb) 0.63 mg Q3H RESP THERAPY PRN HHN WHEEZING AND SOB Last administered on 11/08/18at 08:24; Admin Dose 0.63 MG; Start 11/07/18 at 23:00 Ipratropium [place] (Atrovent 0.02% (Neb)) 0.5 mg Q3H RESP THERAPY PRN HHN WHEEZING AND SOB Last administered on 11/07/18 23:23; Admin Dose 0.5 MG; Start 11/07/18 at 23:00 IV Flush (NS 3 ml) 3 ml PER PROTOCOL IV ; Start 11/08/18 at 00:00 Ondansetron HCl (Zofran Inj) 4 mg Q6H PRN IV NAUSEA/VOMITING; Start 11/08/18 at 00:00 Albuterol/ Ipratropium (Duoneb) 3 ml Q2H RESP THERAPY PRN HHN SHORTNESS OF BR EATH; Start 11/08/18 at 00:00 Acetaminophen (Tylenol Supp) 650 mg Q6H PRN [place] FEVER OR PAIN Last administered on 11/08/18 16:30; Admin Dose 650 MG; Start 11/08/18 at 05:00 Piperacillin Sod/ Tazobactam Sod 100 ml @ 200 mls/hr Q6 IVPB Last administered on 11/10/18 13:00; Admin Dose 200 MLS/HR; Start 11/08/18 at 18:00 Vancomycin HCl (Vanco Iv Per Pharmacy) VANCOMYCIN PER PHARMACY PER PROTOCOL XX ; Start 11/08/18 at 16:30 Vancomycin HCl 250 ml @ 125 mls/hr Q24H IVPB Last administered on 11/09/18 19:15; Admin Dose 125 MLS/HR; Start 11/08/18 at 18:00 Propofol 100 ml @ 1.776 mls/ hr Q12H IV Last administered on 11/10/18 13:00; Admin Dose 3.552 MLS/HR; Start 11/08/18 at 17:00 Oseltamivir Phosphate (Tamiflu) 30 mg BID PO Last administered on 11/10/18 08:45; Admin Dose 30 MG; Start 11/08/18 at 20:00 Phenylephrine HCl 80 mg/Dextrose 250 ml @ 18.75 mls/ hr TITRATE IV Last administered on 11/10/18 11:03; Admin Dose 56.25 MLS/HR; Start 11/09/18 at 00:30 Amiodarone HCl 900 mg/Dextrose 500 ml @ 0 mls/hr Q0M IV Last administered on 11/10/18 01:33; Admin Dose 16.66 MLS/HR; Start 11/09/18 at 01:00 Norepinephrine 32 mg/Dextrose 250 ml @ 0.47 mls/hr TITRATE IV Last administered on 11/10/18 09:40; Admin Dose 0.47 MLS/HR; Start 11/09/18 at 01:00 Vasopressin 60 unit/Dextrose 60 ml @ 1.2 mls/hr Q12H IV Last administered on 11/10/18 01:56; Admin Dose 2.4 MLS/HR; Start 11/09/18 at 01:00 Miscellaneous Information (*Rx Drug Level Order Reminder*) VANCO TR 11/10 AT 1700 1700 ONCE XX ; Start 11/10/18 at 17:00; Stop 11/10/18 at 17:01 Eye Lubricant (Artificial Tears Oph) 2 drop QID BOTH EYES Last administered on 11/10/18 12:59; Admin Dose 2 DROP; Start 11/09/18 at 17:00 Sodium Bicarbonate 100 meq/Dextrose 1,000 ml @ 75 mls/hr [id number] IV Last administered on 11/10/18 09:32; Admin Dose 75 MLS/HR; Start 11/10/18 at 09:00 Fentanyl 100 ml @ 2.5 mls/hr TITRATE IV Last administered on 11/10/18 11:04; Admin Dose 2.5 MLS/HR; Start 11/10/18 at 10:00 Sodium Chloride 1,000 ml @ 75 mls/hr [id number] IV Last administered on 11/10/18 11:20; Admin Dose 75 MLS/HR; Start 11/10/18 at 10:30 Albumin Human 100 ml @ 100 mls/hr Q8H IV Last administered on 11/10/18 11:47; Admin Dose 100 MLS/HR; Start 11/10/18 at 11:30; Stop 11/11/18 at 04:29 LESA WEBER MD Nov 10, 2018 14:05
--- NOTE | 2018-11-10 14:14 | CONS ---
Assessment/Plan Assessment/Plan Hospital Course (Demo Recall) No acute changes overnight. Patient is on multiple pressors. Intubated. Sedated. In no distress. She is also on amiodarone drip. Her heart rate remains at 130s range WBC 11.6 H&H 9.8 and 30.3 platelets 21 BUN 90 creatinine 1.38 Indwelling: Endotracheal tube, orogastric tube, Hatch catheter, right femoral triple-lumen catheter Chest x-ray this morning revealed multifocal infiltrates Microbiology: Blood culture since admission growing gram-negative rods, urine culture negative MRSA swab negative, repeat blood cultures negative, influenza a positive Antimicrobials: Zosyn, vancomycin, Tamiflu Physical examination: Chronically ill-appearing elderly woman who is in no distress. Head atraumatic normocephalic sclera nonicteric. Mucous mucosa dry. Neck is supple, chest rise symmetrical. Breath sounds diminished bases. Heart: S1-S2, irregular irregular. Abdomen distended, bowel sounds absent. Extremities cyanotic and mottled Assessment: 1. Severe sepsis with shock and multisystem organ failure 2. Gram-negative carlos bacteremia 3. Influenza A with superimposed pneumonia 4. Acute respiratory failure 5. Rapid atrial fibrillation 6. Acute renal failure 7. 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 History of permanent pacemaker Plan: Patient is doing poorly, she is hemodynamically unstable on multiple pressors, blood cultures still pending, were going to change Zosyn to meropenem Consultation Date/Type/Reason Admit Date/Time Nov 07, 2018 at 21:25 Initial Consult Date 11/10/18 Type of Consult id Requesting Provider: KEANU JORGENSEN Date/Time of Note DATE: 11/10/18 TIME: 14:14 Exam/Review of Systems Exam Vitals Vital Signs Date Temp Pulse Resp B/P (MAP) Pulse Ox O2 O2 Flow FiO2 Time Delivery Rate 11/10/18 132 12:00 11/10/18 21 101/54 96 11:45 (70) 11/10/18 45 11:10 11/10/18 Mechanical 11:00 Ventilator 11/10/18 99.8 08:00 11/07/18 6.0 23:24 Intake and Output 11/09/18 11/09/18 11/10/18 1515:00 23:00 07:00 IntakeIntake Total 823.00 ml 1182.580 ml 664.466 ml OutputOutput Total 215 ml 260 ml 180 ml BalanceBalance 608.00 ml 922.580 ml 484.466 ml Results Result Diagram: 11/10/18 0400 11/10/18 0400 Results 24hrs Laboratory Tests Test 11/10/18 04:00 11/10/18 04:51 11/10/18 07:00 White Blood Count 11.6 #H Red Blood Count 3.48 #L Hemoglobin 9.8 #L Hematocrit 30.3 #L Mean Corpuscular Volume 87.1 Mean Corpuscular 28.2 L Hemoglobin Mean Corpuscular 32.3 Hemoglobin Concent Red Cell Distribution 18.4 H Width Platelet Count 21 #*L Mean Platelet Volume Immature Granulocytes % 5.100 H Neutrophils % Segmented Neutrophils 57 % (Manual) Band Neutrophils % 40 H (Manual) Lymphocytes % Lymphocytes % (Manual) 1 L Reactive Lymphocytes 1 H % (Manual) Monocytes % Eosinophils % Basophils % Promyelocytes % 1 H (Manual) Nucleated Red Blood 3 H Cells % Immature Granulocytes # 0.590 H Neutrophils # Neutrophils # (Manual) 7.1 Band Neutrophils # 4.6 H Lymphocytes (Manual) 0.1 L Lymphocytes # Reactive Lymphocytes # 0.1 H Monocytes # Eosinophils # Basophils # Promyelocytes # 0.1 H Nucleated Red Blood Cells # Platelet Estimate SIG DECREASED Giant Platelets 4 H Polychromasia 3+ Poikilocytosis 3+ Anisocytosis 2+ Macrocytosis 2+ Sodium Level 134 L Potassium Level 5.1 Chloride Level 107 Carbon Dioxide Level 13 L Anion Gap 14 H Blood Urea Nitrogen 90 H Creatinine 1.38 H Est Glomerular Filtrat 38 L Rate mL/min Glucose Level 127 # Calcium Level 7.1 L Phosphorus Level 8.7 #H Magnesium Level 2.7 H Lab Scanned Report BLOOD TRANSFUSION Blood Gas Specimen Blood arterial Source Arterial Blood Date 11/10/2018 7:15:01 AM Drawn Arterial Blood pH 7.187 *L (Temp corrected) Arterial Blood pCO2 29.6 L (Temp correct) Arterial Blood pO2 92.5 (Temp corrected) Arterial Blood HCO3 11.0 L Arterial Blood Base -15.9 L Excess Arterial Blood 95.5 Oxygen Saturation Frantz Test N/A Arterial Blood Gas Right Brachial Puncture Site Arterial 0.5 Blood Carboxyhemoglobin Arterial Blood 0.3 Methemoglobin Blood Gas A-a O2 194.7 H Differential Oxyhemoglobin Percent 94.7 Blood Gas Temperature 37.0 Blood Gas Respiration 20.0 Rate Blood Gas Actual 23 Respiration Rate Blood Gas Modality VENT - AC FiO2 45.0 Blood Gas Tidal Volume 500.0 Blood Gas Low PEEP 5.0 Setting Blood Gas Critical OTIS RN Value Read Back Blood Gas Notified Whom TM Blood Gas Notified 11/10/2018 8:05:14 AM Time Medications Medication Current Medications Levalbuterol (Xopenex Neb) 0.63 mg Q3H RESP THERAPY PRN HHN WHEEZING AND SOB Last administered on 11/08/18at 08:24; Admin Dose 0.63 MG; Start 11/07/18 at 23:00 Ipratropium [place] (Atrovent 0.02% (Neb)) 0.5 mg Q3H RESP THERAPY PRN HHN WHEEZING AND SOB Last administered on 11/07/18at 23:23; Admin Dose 0.5 MG; Start 11/07/18 at 23:00 IV Flush (NS 3 ml) 3 ml PER PROTOCOL IV ; Start 11/08/18 at 00:00 Ondansetron HCl (Zofran Inj) 4 mg Q6H PRN IV NAUSEA/VOMITING; Start 11/08/18 at 00:00 Albuterol/ Ipratropium (Duoneb) 3 ml Q2H RESP THERAPY PRN HHN SHORTNESS OF BREATH; Start 11/08/18 at 00:00 Acetaminophen (Tylenol Supp) 650 mg Q6H PRN [place] FEVER OR PAIN Last administered on 11/08/18at 16:30; Admin Dose 650 MG; Start 11/08/18 at 05:00 Piperacillin Sod/ Tazobactam Sod 100 ml @ 200 mls/hr Q6 IVPB Last administered on 11/10/18at 13:00; Admin Dose 200 MLS/HR; Start 11/08/18 at 18:00 Vancomycin HCl (Vanco Iv Per Pharmacy) VANCOMYCIN PER PHARMACY PER PROTOCOL XX ; Start 11/08/18 at 16:30 Vancomycin HCl 250 ml @ 125 mls/hr Q24H IVPB Last administered on 11/09/18 19:15; Admin Dose 125 MLS/HR; Start 11/08/18 at 18:00 Propofol 100 ml @ 1.776 mls/ hr Q12H IV Last administered on 11/10/18 13:00; Admin Dose 3.552 MLS/HR; Start 11/08/18 at 17:00 Oseltamivir Phosphate (Tamiflu) 30 mg BID PO Last administered on 11/10/18 08:45; Admin Dose 30 MG; Start 11/08/18 at 20:00 Phenylephrine HCl 80 mg/Dextrose 250 ml @ 18.75 mls/ hr TITRATE IV Last administered on 11/10/18 11:03; Admin Dose 56.25 MLS/HR; Start 11/09/18 at 00:30 Amiodarone HCl 900 mg/Dextrose 500 ml @ 0 mls/hr Q0M IV Last administered on 11/10/18 01:33; Admin Dose 16.66 MLS/HR; Start 11/09/18 at 01:00 Norepinephrine 32 mg/Dextrose 250 ml @ 0.47 mls/hr TITRATE IV Last administered on 11/10/18 09:40; Admin Dose 0.47 MLS/HR; Start 11/09/18 at 01:00 Vasopressin 60 unit/Dextrose 60 ml @ 1.2 mls/hr Q12H IV Last administered on 11/10/18 01:56; Admin Dose 2.4 MLS/HR; Start 11/09/18 at 01:00 Miscellaneous Information (*Rx Drug Level Order Reminder*) DANUTA CANO 11/10 AT 1700 1700 ONCE XX ; Start 11/10/18 at 17:00; Stop 11/10/18 at 17:01 Eye Lubricant (Artificial Tears Oph) 2 drop QID BOTH EYES Last administered on 11/10/18 12:59; Admin Dose 2 DROP; Start 11/09/18 at 17:00 Sodium Bicarbonate 100 meq/Dextrose 1,000 ml @ 75 mls/hr [id number] IV Last administered on 11/10/18 09:32; Admin Dose 75 MLS/HR; Start 11/10/18 at 09:00 Fentanyl 100 ml @ 2.5 mls/hr TITRATE IV Last administered on 11/10/18 11:04; Admin Dose 2.5 MLS/HR; Start 11/10/18 at 10:00 Sodium Chloride 1,000 ml @ 75 mls/hr [id number] IV Last administered on 11/10/18 11:20; Admin Dose 75 MLS/HR; Start 11/10/18 at 10:30 Albumin Human 100 ml @ 100 mls/hr Q8H IV Last administered on 11/10/18at 11:47; Admin Dose 100 MLS/HR; Start 11/10/18 at 11:30; Stop 11/11/18 at 04:29 Lactated Ringer's 500 ml @ 500 mls/hr Q1H ONCE IV ; Start 11/10/18 at 14:30; Stop 11/10/18 at 15:29 ABDIRASHID LOPEZ NP Nov 10, 2018 14:14
[2018-11-10] MEDS ORDERED: LACTATED RINGER'S 500 ML IV ONE (14:30)
--- NOTE | 2018-11-10 15:17 | CONS ---
Assessment/Plan Assessment/Plan Hospital Course (Demo Recall) 68 yo with metastatic renal cell ca, multi organ failure, h/o [employer] pacemaker, with tachycardia which appears to be atrial flutter with 2:1 conduction. Impression: Rapid atrial flutter Septic shock Multi organ failure Ac resp failure History of [employer] pacemaker Recommendations: Continue amiodarone drip for now Wean pressors if able Hydration/albumin Supportive care of underlying issues Replete electrolytes if needed, Mg is 2.6 and K 4.4. Consultation Date/Type/Reason Admit Date/Time Nov 07, 2018 at 21:25 Date of Consultation: Nov 10, 2018 Type of Consult Cardiology Reason for Consultation tachycardia Requesting Provider: KEANU JORGENSEN Date/Time of Note DATE: 11/10/18 TIME: 14:58 Hx of Present Illness 68 with metastatic renal cell ca, admitted with mental status changes, intubated, with septic shock. Today heart rate became fast, amiodarone drip started without much effect, and with adenosine the rate slows down and flutter waves are seen and pacer spikes noted. Patient follows with Dr. Rochelle tony, last was at the office for programming changes prior to undergoing an MRI. At present, intubated and cannot provide any history. Subjective hx not possible: pt non-verbal, pt critical status Past Medical History Medical History: other (pacemaker, renal cell ca) Home Meds Reported Medications Ondansetron Hcl* (Zofran*) 4 Mg Tab, 4 MG PO Q6H PRN for NAUSEA AND OR VOMITING, TAB 11/08/18 Hydromorphone Hcl* (Dilaudid* Inj) 4 Mg/Ml Soln, 0.5 MG IV Q4H PRN for SEVERE PAIN, EA 11/07/18 Tizanidine Hcl* (Zanaflex*) 2 Mg Tablet, 2 MG PO Q6H PRN for SPASTICITY, TAB 11/07/18 Acetaminophen* (Tylenol*) 325 Mg Tablet, 650 MG PO Q4H PRN for fever/pain, TAB 11/07/18 Levothyroxine Sodium* (Synthroid*) 125 Mcg Tablet, 125 MCG PO BEFORE BREAKFAST, #30 TAB 11/07/18 Sennosides* (Senna Lax*) 8.6 Mg Tablet, 2 TAB PO DAILY for constipation, TAB 11/07/18 Oxycodone HCl/Acetaminophen (Percocet 5-325 mg Tablet) 1 Each Tablet, 1 EACH PO Q4 PRN for PAIN, TAB 11/07/18 [multivitamin] No Conflict Check, 1 TAB ORAL DAILY 11/07/18 Morphine Sulfate (Morphine Sulfate ER) 30 Mg Tablet.er, 30 MG PO Q12, TAB 11/07/18 [Miralax powder] No Conflict Check, 17 GM ORAL DAILY for constipation 11/07/18 Magnesium Hydroxide* (Milk Of Magnesia*) 400 Mg/5 Ml Oral.susp, 30 ML PO DAILY PRN for constipation, ML 11/07/18 [Melatonin] No Conflict Check, 0.5 MG HS for insomia 11/07/18 [Lidocaine patch] No Conflict Check, 1 PATCH TOPICAL DAILY for lower back pain 11/07/18 [fleet enema ] No Conflict Check, 1 UNIT RECTAL q72 hours for constipation 11/07/18 Famotidine* (Famotidine*) 20 Mg Tablet, 20 MG PO BID, #60 TAB 11/07/18 Bisacodyl* (Dulcolax*) 5 Mg Tablet.dr, 10 MG PO q48hrs PRN for CONSTIPATION, TAB 11/07/18 Dexamethasone* (Dexamethasone*) 4 Mg Tablet, 4 MG PO BID, TAB 11/07/18 Clonidine Hcl* (Clonidine Hcl*) 0.1 Mg Tab, 0.1 MG PO Q6 PRN for systolic BP >160, TAB 11/07/18 Calcium Carbonate* (Calcium Carbonate*) 600 MG Ca Tab, 1200 MG PO QID PRN for indigestion, TAB 11/07/18 Amlodipine Besylate* (Norvasc*) 5 Mg Tablet, 5 MG PO DAILY, TAB hold for systolic BP < 110 or HR <60 11/07/18 Medications Current Medications Levalbuterol (Xopenex Neb) 0.63 mg Q3H RESP THERAPY PRN HHN WHEEZING AND SOB Last administered on 11/08/18at 08:24; Admin Dose 0.63 MG; Start 11/07/18 at 23:00 Ipratropium [place] (Atrovent 0.02% (Neb)) 0.5 mg Q3H RESP THERAPY PRN HHN WHEEZING AND SOB Last administered on 11/07/18at 23:23; Admin Dose 0.5 MG; Start 11/07/18 at 23:00 IV Flush (NS 3 ml) 3 ml PER PROTOCOL IV ; Start 11/08/18 at 00:00 Ondansetron HCl (Zofran Inj) 4 mg Q6H PRN IV NAUSEA/VOMITING; Start 11/08/18 at 00:00 Albuterol/ Ipratropium (Duoneb) 3 ml Q2H RESP THERAPY PRN HHN SHORTNESS OF BREATH; Start 11/08/18 at 00:00 Acetaminophen (Tylenol Supp) 650 mg Q6H PRN [place] FEVER OR PAIN Last administered on 11/08/18 16:30; Admin Dose 650 MG; Start 11/08/18 at 05:00 Vancomycin HCl (Vanco Iv Per Pharmacy) VANCOMYCIN PER PHARMACY PER PROTOCOL XX ; Start 11/08/18 at 16:30 Vancomycin HCl 250 ml @ 125 mls/hr Q24H IVPB Last administered on 11/09/18 19:15; Admin Dose 125 MLS/HR; Start 11/08/18 at 18:00 Propofol 100 ml @ 1.776 mls/ hr Q12H IV Last administered on 11/10/18 13:00; Admin Dose 3.552 MLS/HR; Start 11/08/18 at 17:00 Oseltamivir Phosphate (Tamiflu) 30 mg BID PO Last administered on 11/10/18 08:45; Admin Dose 30 MG; Start 11/08/18 at 20:00 Phenylephrine HCl 80 mg/Dextrose 250 ml @ 18.75 mls/ hr TITRATE IV Last administered on 11/10/18 11:03; Admin Dose 56.25 MLS/HR; Start 11/09/18 at 00:30 Amiodarone HCl 900 mg/Dextrose 500 ml @ 0 mls/hr Q0M IV Last administered on 11/10/18 01:33; Admin Dose 16.66 MLS/HR; Start 11/09/18 at 01:00 Norepinephrine 32 mg/Dextrose 250 ml @ 0.47 mls/hr TITRATE IV Last administered on 11/10/18 09:40; Admin Dose 0.47 MLS/HR; Start 11/09/18 at 01:00 Vasopressin 60 unit/Dextrose 60 ml @ 1.2 mls/hr Q12H IV Last administered on 11/10/18 01:56; Admin Dose 2.4 MLS/HR; Start 11/09/18 at 01:00 Miscellaneous Information (*Rx Drug Level Order Reminder*) VANCO TR 11/10 AT 1700 1700 ONCE XX ; Start 11/10/18 at 17:00; Stop 11/10/18 at 17:01 Eye Lubricant (Artificial Tears Oph) 2 drop QID BOTH EYES Last administered on 11/10/18at 12:59; Admin Dose 2 DROP; Start 11/09/18 at 17:00 Sodium Bicarbonate 100 meq/Dextrose 1,000 ml @ 75 mls/hr [id number] IV Last admi nistered on 11/10/18at 09:32; Admin Dose 75 MLS/HR; Start 11/10/18 at 09:00 Fentanyl 100 ml @ 2.5 mls/hr TITRATE IV Last administered on 11/10/18at 11:04; Admin Dose 2.5 MLS/HR; Start 11/10/18 at 10:00 Sodium Chloride 1,000 ml @ 75 mls/hr [id number] IV Last administered on 11/10/18at 11:20; Admin Dose 75 MLS/HR; Start 11/10/18 at 10:30 Albumin Human 100 ml @ 100 mls/hr Q8H IV Last administered on 11/10/18at 11:47; Admin Dose 100 MLS/HR; Start 11/10/18 at 11:30; Stop 11/11/18 at 04:29 Lactated Ringer's 500 ml @ 500 mls/hr Q1H ONCE IV ; Start 11/10/18 at 14:30; Stop 11/10/18 at 15:29 Meropenem/Sodium Chloride 50 ml @ 100 mls/hr Q12 IVPB ; Start 11/10/18 at 21:00 Allergies: Coded Allergies: No Known Allergies (Verified Allergy, Mild, 10/30/10) Past Surgical History Past Surgical Hx: other (pacemaker) Social History Alcohol Use: none Smoking Status: Former smoker Drug Use: none Exam/Review of Systems Vital Signs Vitals Vital Signs Date Temp Pulse Resp B/P (MAP) Pulse Ox O2 O2 Flow FiO2 Time Delivery Rate 11/10/18 132 12:00 11/10/18 21 101/54 96 11:45 (70) 11/10/18 45 11:10 11/10/18 Mechanical 11:00 Ventilator 11/10/18 99.8 08:00 11/07/18 6.0 23:24 Intake and Output 11/09/18 11/09/18 11/10/18 1515:00 23:00 07:00 IntakeIntake Total 823.00 ml 1182.580 ml 664.466 ml OutputOutput Total 215 ml 260 ml 180 ml BalanceBalance 608.00 ml 922.580 ml 484.466 ml Exam Constitutional: non-verbal Psych: other (sedated) Head: normocephalic Eyes: nl lids, icteric ENMT: nl external ears & nose Neck: No jvd, No bruits Respiratory: clear to auscultation Cardiovascular: regular rate and rhythm (tachycardic); No murmurs/extra sounds Gastrointestinal: non-tender, distended Musculoskeletal: nl extremities to inspection Extremities: normal pulses; No edema Neurological: unresponsive (sedated) Skin: nl turgor, ecchymosis, other (icteric) Labs Result Diagram: 11/10/18 0400 11/10/18 0400 Results 24hrs Laboratory Tests Test 11/10/18 04:00 11/10/18 04:51 11/10/18 07:00 White Blood Count 11.6 #H Red Blood Count 3.48 #L Hemoglobin 9.8 #L Hematocrit 30.3 #L Mean Corpuscular Volume 87.1 Mean Corpuscular 28.2 L Hemoglobin Mean Corpuscular 32.3 Hemoglobin Concent Red Cell Distribution 18.4 H Width Platelet Count 21 #*L Mean Platelet Volume Immature Granulocytes % 5.100 H Neutrophils % Segmented Neutrophils 57 % (Manual) Band Neutrophils % 40 H (Manual) Lymphocytes % Lymphocytes % (Manual) 1 L Reactive Lymphocytes 1 H % (Manual) Monocytes % Eosinophils % Basophils % Promyelocytes % 1 H (Manual) Nucleated Red Blood 3 H Cells % Immature Granulocytes # 0.590 H Neutrophils # Neutrophils # (Manual) 7.1 Band Neutrophils # 4.6 H Lymphocytes (Manual) 0.1 L Lymphocytes # Reactive Lymphocytes # 0.1 H Monocytes # Eosinophils # Basophils # Promyelocytes # 0.1 H Nucleated Red Blood Cells # Platelet Estimate SIG DECREASED Giant Platelets 4 H Polychromasia 3+ Poikilocytosis 3+ Anisocytosis 2+ Macrocytosis 2+ Sodium Level 134 L Potassium Level 5.1 Chloride Level 107 Carbon Dioxide Level 13 L Anion Gap 14 H Blood Urea Nitrogen 90 H Creatinine 1.38 H Est Glomerular Filtrat 38 L Rate mL/min Glucose Level 127 # Calcium Level 7.1 L Phosphorus Level 8.7 #H Magnesium Level 2.7 H Free Thyroxine 0.93 Free Triiodothyronine 1.51 L (T3) pg/mL Lab Scanned Report BLOOD TRANSFUSION Blood Gas Specimen Blood arterial Source Arterial Blood Date 11/10/2018 7:15:01 AM Drawn Arterial Blood pH 7.187 *L (Temp corrected) Arterial Blood pCO2 29.6 L (Temp correct) Arterial Blood pO2 92.5 (Temp corrected) Arterial Blood HCO3 11.0 L Arterial Blood Base -15.9 L Excess Arterial Blood 95.5 Oxygen Saturation Frantz Test N/A Arterial Blood Gas Right Brachial Puncture Site Arterial 0.5 Blood Carboxyhemoglobin Arterial Blood 0.3 Methemoglobin Blood Gas A-a O2 194.7 H Differential Oxyhemoglobin Percent 94.7 Blood Gas Temperature 37.0 Blood Gas Respiration 20.0 Rate Blood Gas Actual 23 Respiration Rate Blood Gas Modality VENT - AC FiO2 45.0 Blood Gas Tidal Volume 500.0 Blood Gas Low PEEP 5.0 Setting Blood Gas Critical [id number] Value Read Back Blood Gas Notified Whom TM Blood Gas Notified 11/10/2018 8:05:14 AM Time Imaging Imaging EKG from admission shows sinus tachycardia with rbbb and left anterior fascicular block Telemetry reviewed, patient is tachycardic, and with adenosine flutter waves and a paced rhythm are noted Brief review of echo at bedside demonstrates normal to low-normal LV systolic function Medications Medications Current Medications Levalbuterol (Xopenex Neb) 0.63 mg Q3H RESP THERAPY PRN HHN WHEEZING AND SOB Last administered on 11/08/18at 08:24; Admin Dose 0.63 MG; Start 11/07/18 at 23:00 Ipratropium [place] (Atrovent 0.02% (Neb)) 0.5 mg Q3H RESP THERAPY PRN HHN WHEEZING AND SOB Last administered on 11/07/18at 23:23; Admin Dose 0.5 MG; Start 11/07/18 at 23:00 IV Flush (NS 3 ml) 3 ml PER PROTOCOL IV ; Start 11/08/18 at 00:00 Ondansetron HCl (Zofran Inj) 4 mg Q6H PRN IV NAUSEA/VOMITING; Start 11/08/18 at 00:00 Albuterol/ Ipratropium (Duoneb) 3 ml Q2H RESP THERAPY PRN HHN SHORTNESS OF BREATH; Start 11/08/18 at 00:00 Acetaminophen (Tylenol Supp) 650 mg Q6H PRN [place] FEVER OR PAIN Last administered on 11/08/18at 16:30; Admin Dose 650 MG; Start 11/08/18 at 05:00 Vancomycin HCl (Vanco Iv Per Pharmacy) VANCOMYCIN PER PHARMACY PER PROTOCOL XX ; Start 11/08/18 at 16:30 Vancomycin HCl 250 ml @ 125 mls/hr Q24H IVPB Last administered on 11/09/18 19:15; Admin Dose 125 MLS/HR; Start 11/08/18 at 18:00 Propofol 100 ml @ 1.776 mls/ hr Q12H IV Last administered on 11/10/18 13:00; Admin Dose 3.552 MLS/HR; Start 11/08/18 at 17:00 Oseltamivir Phosphate (Tamiflu) 30 mg BID PO Last administered on 11/10/18 08:45; Admin Dose 30 MG; Start 11/08/18 at 20:00 Phenylephrine HCl 80 mg/Dextrose 250 ml @ 18.75 mls/ hr TITRATE IV Last administered on 11/10/18 11:03; Admin Dose 56.25 MLS/HR; Start 11/09/18 at 00:30 Amiodarone HCl 900 mg/Dextrose 500 ml @ 0 mls/hr Q0M IV Last administered on 11/10/18 01:33; Admin Dose 16.66 MLS/HR; Start 11/09/18 at 01:00 Norepinephrine 32 mg/Dextrose 250 ml @ 0.47 mls/hr TITRATE IV Last administered on 11/10/18 09:40; Admin Dose 0.47 MLS/HR; Start 11/09/18 at 01:00 Vasopressin 60 unit/Dextrose 60 ml @ 1.2 mls/hr Q12H IV Last administered on 11/10/18 01:56; Admin Dose 2.4 MLS/HR; Start 11/09/18 at 01:00 Miscellaneous Information (*Rx Drug Level Order Reminder*) VANCO TR 11/10 AT 1700 1700 ONCE XX ; Start 11/10/18 at 17:00; Stop 11/10/18 at 17:01 Eye Lubricant (Artificial Tears Oph) 2 drop QID BOTH EYES Last administered on 11/10/18at 12:59; Admin Dose 2 DROP; Start 11/09/18 at 17:00 Sodium Bicarbonate 100 meq/Dextrose 1,000 ml @ 75 mls/hr [id number] IV Last administered on 11/10/18at 09:32; Admin Dose 75 MLS/HR; Start 11/10/18 at 09:00 Fentanyl 100 ml @ 2.5 mls/hr TITRATE IV Last administered on 11/10/18at 11:04; Admin Dose 2.5 MLS/HR; Start 11/10/18 at 10:00 Sodium Chloride 1,000 ml @ 75 mls/hr [id number] IV Last administered on 11/10/18at 11:20; Admin Dose 75 MLS/HR; Start 11/10/18 at 10:30 Albumin Human 100 ml @ 100 mls/hr Q8H IV Last administered on 11/10/18at 11:47; Admin Dose 100 MLS/HR; Start 11/10/18 at 11:30; Stop 11/11/18 at 04:29 Lactated Ringer's 500 ml @ 500 mls/hr Q1H ONCE IV ; Start 11/10/18 at 14:30; Stop 11/10/18 at 15:29 Meropenem/Sodium Chloride 50 ml @ 100 mls/hr Q12 IVPB ; Start 11/10/18 at 21:00 ANJELICA HYMAN Nov 10, 2018 15:11
[2018-11-10] MEDS ORDERED: LEVETIRACETAM 1000 MG (PMX) 100 ML IVPB ONE (17:00)
--- NOTE | 2018-11-10 17:04 | CONS ---
Assessment/Plan Assessment/Plan Assessment/Plan (Daily) Palliative care consultation and family meeting with the patient's daughter on November 09, 2018 Patient is in the intensive care unit [facility] was admitted with sepsis syndrome Altered mental status presumed secondary to the above History of metastatic renal cell carcinoma with metastases to lung and bone Bicytopenia SVT Bilateral pneumonia with gram-negative bacteremia Respiratory failure, intubated Influenza A Euthyroid sick syndrome secondary to sepsis Preliminary meeting with patient's daughter, she made it very clear that she is the decision maker for her mother's ongoing level of care. She requested health care team not speak to anyone else. That day she was making arrangements at a home for her mother's ultimate demise. She had contacted all other fir st and second-degree family members. We discussed all her current medical problems overall prognosis, which we discussed was poor but not totally inconceivable that she may recover in the short-term. She was very emotional at that time and I did not address but I decided to wait overnight and discuss again the following day. She did tell me that her mother in general has a positive outlook on life, however she did not think that her mother would want to live on artificial life support for a prolonged period of time. I will reach out to patient's daughter again in 24 hours and discuss her clinical condition once again and at that time we will address patient's CODE STATUS. Consultation Date/Type/Reason Admit Date/Time Nov 07, 2018 at 21:25 Date/Time of Note DATE: 11/10/18 TIME: 17:02 Past Medical History Medical History: cancer (Had a static renal cell carcinoma), hypothyroid, other (See HPI) Home Meds Reported Medications Ondansetron Hcl* (Zofran*) 4 Mg Tab, 4 MG PO Q6H PRN for NAUSEA AND OR VOMITING, TAB 11/08/18 Hydromorphone Hcl* (Dilaudid* Inj) 4 Mg/Ml Soln, 0.5 MG IV Q4H PRN for SEVERE PAIN, EA 11/07/18 Tizanidine Hcl* (Zanaflex*) 2 Mg Tablet, 2 MG PO Q6H PRN for SPASTICITY, TAB 11/07/18 Acetaminophen* (Tylenol*) 325 Mg Tablet, 650 MG PO Q4H PRN for fever/pain, TAB 11/07/18 Levothyroxine Sodium* (Synthroid*) 125 Mcg Tablet, 125 MCG PO BEFORE BREAKFAST, #30 TAB 11/07/18 Sennosides* (Senna Lax*) 8.6 Mg Tablet, 2 TAB PO DAILY for constipation, TAB 11/07/18 Oxycodone HCl/Acetaminophen (Percocet 5-325 mg Tablet) 1 Each Tablet, 1 EACH PO Q4 PRN for PAIN, TAB 11/07/18 [multivitamin] No Conflict Check, 1 TAB ORAL DAILY 11/07/18 Morphine Sulfate (Morphine Sulfate ER) 30 Mg Tablet.er, 30 MG PO Q12, TAB 11/07/18 [Miralax powder] No Conflict Check, 17 GM ORAL DAILY for constipation 11/07/18 Magnesium Hydroxide* (Milk Of Magnesia*) 400 Mg/5 Ml Oral.susp, 30 ML PO DAILY PRN for constipation, ML 11/07/18 [Melatonin] No Conflict Check, 0.5 MG HS for insomia 11/07/18 [Lidocaine patch] No Conflict Check, 1 PATCH TOPICAL DAILY for lower back pain 11/07/18 [fleet enema ] No Conflict Check, 1 UNIT RECTAL q72 hours for constipation 11/07/18 Famotidine* (Famotidine*) 20 Mg Tablet, 20 MG PO BID, #60 TAB 11/07/18 Bisacodyl* (Dulcolax*) 5 Mg Tablet.dr, 10 MG PO q48hrs PRN for CONSTIPATION, TAB 11/07/18 Dexamethasone* (Dexamethasone*) 4 Mg Tablet, 4 MG PO BID, TAB 11/07/18 Clonidine Hcl* (Clonidine Hcl*) 0.1 Mg Tab, 0.1 MG PO Q6 PRN for systolic BP >160, TAB 11/07/18 Calcium Carbonate* (Calcium Carbonate*) 600 MG Ca Tab, 1200 MG PO QID PRN for indigestion, TAB 11/07/18 Amlodipine Besylate* (Norvasc*) 5 Mg Tablet, 5 MG PO DAILY, TAB hold for systolic BP < 110 or HR <60 11/07/18 Medications Current Medications Levalbuterol (Xopenex Neb) 0.63 mg Q3H RESP THERAPY PRN HHN WHEEZING AND SOB Last administered on 11/08/18at 08:24; Admin Dose 0.63 MG; Start 11/07/18 at 23:00 Ipratropium Onarga (Atrovent 0.02% (Neb)) 0.5 mg Q3H RESP THERAPY PRN HHN WHEEZING AND SOB Last administered on 11/07/18 23:23; Admin Dose 0.5 MG; Start 11/07/18 at 23:00 IV Flush (NS 3 ml) 3 ml PER PROTOCOL IV ; Start 11/08/18 at 00:00 Ondansetron HCl (Zofran Inj) 4 mg Q6H PRN IV NAUSEA/VOMITING; Start 11/08/18 at 00:00 Albuterol/ Ipratropium (Duoneb) 3 ml Q2H RESP THERAPY PRN HHN SHORTNESS OF BREATH; Start 11/08/18 at 00:00 Acetaminophen (Tylenol Supp) 650 mg Q6H PRN DE FEVER OR PAIN Last administered on 11/08/18 16:30; Admin Dose 650 MG; Start 11/08/18 at 05:00 Vancomycin HCl (Vanco Iv Per Pharmacy) VANCOMYCIN PER PHARMACY PER PROTOCOL XX ; Start 11/08/18 at 16:30 Vancomycin HCl 250 ml @ 125 mls/hr Q24H IVPB Last administered on 11/09/18 19:15; Admin Dose 125 MLS/HR; Start 11/08/18 at 18:00 Propofol 100 ml @ 1.776 mls/ hr Q12H IV Last administered on 11/10/18 13:00; Admin Dose 3.552 MLS/HR; Start 11/08/18 at 17:00 Oseltamivir Phosphate (Tamiflu) 30 mg BID PO Last administered on 11/10/18 08:45; Admin Dose 30 MG; Start 11/08/18 at 20:00 Phenylephrine HCl 80 mg/Dextrose 250 ml @ 18.75 mls/ hr TITRATE IV Last administered on 11/10/18 15:44; Admin Dose 56.25 MLS/HR; Start 11/09/18 at 00:30 Amiodarone HCl 900 mg/Dextrose 500 ml @ 0 mls/hr Q0M IV Last administered on 11/10/18 01:33; Admin Dose 16.66 MLS/HR; Start 11/09/18 at 01:00 Norepinephrine 32 mg/Dextrose 250 ml @ 0.47 mls/hr TITRATE IV Last admi nistered on 11/10/18 09:40; Admin Dose 0.47 MLS/HR; Start 11/09/18 at 01:00 Vasopressin 60 unit/Dextrose 60 ml @ 1.2 mls/hr Q12H IV Last administered on 11/10/18 01:56; Admin Dose 2.4 MLS/HR; Start 11/09/18 at 01:00 Miscellaneous Information (*Rx Drug Level Order Reminder*) VANCO TR 11/10 AT 1700 1700 ONCE XX ; Start 11/10/18 at 17:00; Stop 11/10/18 at 17:01 Eye Lubricant (Artificial Tears Oph) 2 drop QID BOTH EYES Last administered on 11/10/18 16:27; Admin Dose 2 DROP; Start 11/09/18 at 17:00 Sodium Bicarbonate 100 meq/Dextrose 1,000 ml @ 75 mls/hr [id number] IV Last administered on 11/10/18 09:32; Admin Dose 75 MLS/HR; Start 11/10/18 at 09:00 Fentanyl 100 ml @ 2.5 mls/hr TITRATE IV Last administered on 11/10/18 11:04; Admin Dose 2.5 MLS/HR; Start 11/10/18 at 10:00 Sodium Chloride 1,000 ml @ 75 mls/hr [id number] IV Last administered on 11/10/18 11:20; Admin Dose 75 MLS/HR; Start 11/10/18 at 10:30 Albumin Human 100 ml @ 100 mls/hr Q8H IV Last administered on 11/10/18 11:47; Admin Dose 100 MLS/HR; Start 11/10/18 at 11:30; Stop 11/11/18 at 04:29 Meropenem/Sodium Chloride 50 ml @ 100 mls/hr Q12 IVPB ; Start 11/10/18 at 21:00 Levetiracetam 100 ml @ 400 mls/hr ONCE ONCE IVPB Last administered on 11/10/18 16:27; Admin Dose 400 MLS/HR; Start 11/10/18 at 17:00; Stop 11/10/18 at 17:14 Levetiracetam 100 ml @ 400 mls/hr Q12 IVPB ; Start 11/11/18 at 08:00 Allergies: Coded Allergies: No Known Allergies (Verified Allergy, Mild, 10/30/10) Past Surgical History Past Surgical Hx: other (pacemaker) Social History Alcohol Use: none Smoking Status: Former smoker Drug Use: none Exam/Review of Systems Exam Vitals Vital Signs Date Temp Pulse Resp B/P (MAP) Pulse Ox O2 O2 Flow FiO2 Time Delivery Rate 11/10/18 126 16:00 11/10/18 20 108/64 98 15:45 (79) 11/10/18 [place] 15:00 l Ventilato r 11/10/18 100.4 12:00 11/10/18 45 11:10 11/07/18 6.0 23:24 Intake and Output 11/09/18 11/09/18 11/10/18 1515:00 23:00 07:00 IntakeIntake Total 823.00 ml 1182.580 ml 664.466 ml OutputOutput Total 215 ml 260 ml 180 ml BalanceBalance 608.00 ml 922.580 ml 484.466 ml Constitutional: distress, frail Head: normocephalic, atraumatic Eyes: nl conjunctiva, EOMI, nl lids, nl sclera, PERRL; No icteric, No fundi, disc, No other ENMT: nl external ears & nose, nl lips & teeth, nl nasal mucosa & septum Respiratory: congested cough, crackles/rales, diminished breath sounds, intercostal retraction, labored breathing Cardiovascular: irregular rhythm Gastrointestinal: other; No soft, No bowel sounds Neurological: other (Sedated) Results Result Diagram: 11/10/18 0400 11/10/18 0400 Results 24hrs Laboratory Tests Test 11/10/18 04:00 11/10/18 04:51 11/10/18 07:00 White Blood Count 11.6 #H Red Blood Count 3.48 #L Hemoglobin 9.8 #L Hematocrit 30.3 #L Mean Corpuscular Volume 87.1 Mean Corpuscular 28.2 L Hemoglobin Mean Corpuscular 32.3 Hemoglobin Concent Red Cell Distribution 18.4 H Width Platelet Count 21 #*L Mean Platelet Volume Immature Granulocytes % 5.100 H Neutrophils % Segmented Neutrophils 57 % (Manual) Band Neutrophils % 40 H (Manual) Lymphocytes % Lymphocytes % (Manual) 1 L Reactive Lymphocytes 1 H % (Manual) Monocytes % Eosinophils % Basophils % Promyelocytes % 1 H (Manual) Nucleated Red Blood 3 H Cells % Immature Granulocytes # 0.590 H Neutrophils # Neutrophils # (Manual) 7.1 Band Neutrophils # 4.6 H Lymphocytes (Manual) 0.1 L Lymphocytes # Reactive Lymphocytes # 0.1 H Monocytes # Eosinophils # Basophils # Promyelocytes # 0.1 H Nucleated Red Blood Cells # Platelet Estimate SIG DECREASED Giant Platelets 4 H Polychromasia 3+ Poikilocytosis 3+ Anisocytosis 2+ Macrocytosis 2+ Sodium Level 134 L Potassium Level 5.1 Chloride Level 107 Carbon Dioxide Level 13 L Anion Gap 14 H Blood Urea Nitrogen 90 H Creatinine 1.38 H Est Glomerular Filtrat 38 L Rate mL/min Glucose Level 127 # Calcium Level 7.1 L Phosphorus Level 8.7 #H Magnesium Level 2.7 H Free Thyroxine 0.93 Free Triiodothyronine 1.51 L (T3) pg/mL Lab Scanned Report BLOOD TRANSFUSION Blood Gas Specimen Blood arterial Source Arterial Blood Date 11/10/2018 7:15:01 AM Drawn Arterial Blood pH 7.187 *L (Temp corrected) Arterial Blood pCO2 29.6 L (Temp correct) Arterial Blood pO2 92.5 (Temp corrected) Arterial Blood HCO3 11.0 L Arterial Blood Base -15.9 L Excess Arterial Blood 95.5 Oxygen Saturation Frantz Test N/A Arterial Blood Gas Right Brachial Puncture Site Arterial 0.5 Blood Carboxyhemoglobin Arterial Blood 0.3 Methemoglobin Blood Gas A-a O2 194.7 H Differential Oxyhemoglobin Percent 94.7 Blood Gas Temperature 37.0 Blood Gas Respiration 20.0 Rate Blood Gas Actual 23 Respiration Rate Blood Gas Modality VENT - AC FiO2 45.0 Blood Gas Tidal Volume 500.0 Blood Gas Low PEEP 5.0 Setting Blood Gas Critical OTIS ALONZO Value Read Back Blood Gas Notified Whom TM Blood Gas Notified 11/10/2018 8:05:14 AM Time Medications Medication Current Medications Levalbuterol (Xopenex Neb) 0.63 mg Q3H RESP THERAPY PRN HHN WHEEZING AND SOB Last administered on 11/08/18at 08:24; Admin Dose 0.63 MG; Start 11/07/18 at 23:00 Ipratropium Onarga (Atrovent 0.02% (Neb)) 0.5 mg Q3H RESP THERAPY PRN HHN WHEEZING AND SOB Last administered on 11/07/18at 23:23; Admin Dose 0.5 MG; Start 11/07/18 at 23:00 IV Flush (NS 3 ml) 3 ml PER PROTOCOL IV ; Start 11/08/18 at 00:00 Ondansetron HCl (Zofran Inj) 4 mg Q6H PRN IV NAUSEA/VOMITING; Start 11/08/18 at 00:00 Albuterol/ Ipratropium (Duoneb) 3 ml Q2H RESP THERAPY PRN HHN SHORTNESS OF BREATH; Start 11/08/18 at 00:00 Acetaminophen (Tylenol Supp) 650 mg Q6H PRN DE FEVER OR PAIN Last administered on 11/08/18at 16:30; Admin Dose 650 MG; Start 11/08/18 at 05:00 Vancomycin HCl (Vanco Iv Per Pharmacy) VANCOMYCIN PER PHARMACY PER PROTOCOL XX ; Start 11/08/18 at 16:30 Vancomycin HCl 250 ml @ 125 mls/hr Q24H IVPB Last administered on 11/09/18at 19:15; Admin Dose 125 MLS/HR; Start 11/08/18 at 18:00 Propofol 100 ml @ 1.776 mls/ hr Q12H IV Last administered on 11/10/18at 13:00; Admin Dose 3.552 MLS/HR; Start 11/08/18 at 17:00 Oseltamivir Phosphate (Tamiflu) 30 mg BID PO Last administered on 11/10/18at 08:45; Admin Dose 30 MG; Start 11/08/18 at 20:00 Phenylephrine HCl 80 mg/Dextrose 250 ml @ 18.75 mls/ hr TITRATE IV Last administered on 11/10/18at 15:44; Admin Dose 56.25 MLS/HR; Start 11/09/18 at 00:30 Amiodarone HCl 900 mg/Dextrose 500 ml @ 0 mls/hr Q0M IV Last administered on 11/10/18at 01:33; Admin Dose 16.66 MLS/HR; Start 11/09/18 at 01:00 Norepinephrine 32 mg/Dextrose 250 ml @ 0.47 mls/hr TITRATE IV Last administered on 11/10/18at 09:40; Admin Dose 0.47 MLS/HR; Start 11/09/18 at 01:00 Vasopressin 60 unit/Dextrose 60 ml @ 1.2 mls/hr Q12H IV Last administered on 11/10/18 01:56; Admin Dose 2.4 MLS/HR; Start 11/09/18 at 01:00 Miscellaneous Information (*Rx Drug Level Order Reminder*) DANUTA TR 11/10 AT 1700 1700 ONCE XX ; Start 11/10/18 at 17:00; Stop 11/10/18 at 17:01 Eye Lubricant (Artificial Tears Oph) 2 drop QID BOTH EYES Last administered on 11/10/18 16:27; Admin Dose 2 DROP; Start 11/09/18 at 17:00 Sodium Bicarbonate 100 meq/Dextrose 1,000 ml @ 75 mls/hr [id number] IV Last administered on 11/10/18 09:32; Admin Dose 75 MLS/HR; Start 11/10/18 at 09:00 Fentanyl 100 ml @ 2.5 mls/hr TITRATE IV Last administered on 11/10/18 11:04; Admin Dose 2.5 MLS/HR; Start 11/10/18 at 10:00 Sodium Chloride 1,000 ml @ 75 mls/hr [id number] IV Last administered on 11/10/18 11:20; Admin Dose 75 MLS/HR; Start 11/10/18 at 10:30 Albumin Human 100 ml @ 100 mls/hr Q8H IV Last administered on 11/10/18 11:47; Admin Dose 100 MLS/HR; Start 11/10/18 at 11:30; Stop 11/11/18 at 04:29 Meropenem/Sodium Chloride 50 ml @ 100 mls/hr Q12 IVPB ; Start 11/10/18 at 21:00 Levetiracetam 100 ml @ 400 mls/hr ONCE ONCE IVPB Last administered on 11/10/18 16:27; Admin Dose 400 MLS/HR; Start 11/10/18 at 17:00; Stop 11/10/18 at 17:14 Levetiracetam 100 ml @ 400 mls/hr Q12 IVPB ; Start 11/11/18 at 08:00 RAMÍREZ ESTEBAN Nov 10, 2018 17:04
--- NOTE | 2018-11-10 17:54 | CONS ---
Assessment/Plan Assessment/Plan Assessment/Plan (Daily) Discussion with patient's daughter at 1700 hrs. There is an advanced directive naming Florence that makes medical decisions if patient cannot do so. If Florence cannot make decisions then next agent is Deisy. This is executed on October 15, 2018 and essentially leaves all decision-making to Florence and so far his ongoing level of care. However there is a POLST form that was executed on November 07 which documents to attempt resuscitation/CPR in the box that specifies trial. A full treatment is checked the agent is also Florence. Because of the disparity in documentation my recommendation to family members are to have a conference and give healthcare delivery team some direction and so far as TRIAL PERIOD OF FULL TREATMENT. I suggest the patient family are in agreement of at least change in CODE STATUS to DO NOT RESUSCITATE however there is much disagreement amongst the sisters. I have asked Florence to speak to her sisters and arrange a time that we can be tomorrow for family conference. Will discuss with Dr. Zavala. Consultation Date/Type/Reason Admit Date/Time Nov 07, 2018 at 21:25 Date/Time of Note DATE: 11/10/18 TIME: 17:47 Past Medical History Medical History: cancer (Had a static renal cell carcinoma), hypothyroid, other (See HPI) Home Meds Reported Medications Ondansetron Hcl* (Zofran*) 4 Mg Tab, 4 MG PO Q6H PRN for NAUSEA AND OR VOMITING, TAB 11/08/18 Hydromorphone Hcl* (Dilaudid* Inj) 4 Mg/Ml Soln, 0.5 MG IV Q4H PRN for SEVERE PAIN, EA 11/07/18 Tizanidine Hcl* (Zanaflex*) 2 Mg Tablet, 2 MG PO Q6H PRN for SPASTICITY, TAB 11/07/18 Acetaminophen* (Tylenol*) 325 Mg Tablet, 650 MG PO Q4H PRN for fever/pain, TAB 11/07/18 Levothyroxine Sodium* (Synthroid*) 125 Mcg Tablet, 125 MCG PO BEFORE BREAKFAST, #30 TAB 11/07/18 Sennosides* (Senna Lax*) 8.6 Mg Tablet, 2 TAB PO DAILY for constipation, TAB 11/07/18 Oxycodone HCl/Acetaminophen (Percocet 5-325 mg Tablet) 1 Each Tablet, 1 EACH PO Q4 PRN for PAIN, TAB 11/07/18 [multivitamin] No Conflict Check, 1 TAB ORAL DAILY 11/07/18 Morphine Sulfate (Morphine Sulfate ER) 30 Mg Tablet.er, 30 MG PO Q12, TAB 11/07/18 [Miralax powder] No Conflict Check, 17 GM ORAL DAILY for constipation 11/07/18 Magnesium Hydroxide* (Milk Of Magnesia*) 400 Mg/5 Ml Oral.susp, 30 ML PO DAILY PRN for constipation, ML 11/07/18 [Melatonin] No Conflict Check, 0.5 MG HS for insomia 11/07/18 [Lidocaine patch] No Conflict Check, 1 PATCH TOPICAL DAILY for lower back pain 11/07/18 [fleet enema ] No Conflict Check, 1 UNIT RECTAL q72 hours for constipation 11/07/18 Famotidine* (Famotidine*) 20 Mg Tablet, 20 MG PO BID, #60 TAB 11/07/18 Bisacodyl* (Dulcolax*) 5 Mg Tablet.dr, 10 MG PO q48hrs PRN for CONSTIPATION, TAB 11/07/18 Dexamethasone* (Dexamethasone*) 4 Mg Tablet, 4 MG PO BID, TAB 11/07/18 Clonidine Hcl* (Clonidine Hcl*) 0.1 Mg Tab, 0.1 MG PO Q6 PRN for systolic BP >160, TAB 11/07/18 Calcium Carbonate* (Calcium Carbonate*) 600 MG Ca Tab, 1200 MG PO QID PRN for indigestion, TAB 11/07/18 Amlodipine Besylate* (Norvasc*) 5 Mg Tablet, 5 MG PO DAILY, TAB hold for systolic BP < 110 or HR <60 11/07/18 Medications Current Medications Levalbuterol (Xopenex Neb) 0.63 mg Q3H RESP THERAPY PRN HHN WHEEZING AND SOB Last administered on 11/08/18at 08:24; Admin Dose 0.63 MG; Start 11/07/18 at 23:00 Ipratropium Odum (Atrovent 0.02% (Neb)) 0.5 mg Q3H RESP THERAPY PRN HHN WHEEZING AND SOB Last administered on 11/07/18at 23:23; Admin Dose 0.5 MG; Start 11/07/18 at 23:00 IV Flush (NS 3 ml) 3 ml PER PROTOCOL IV ; Start 11/08/18 at 00:00 Ondansetron HCl (Zofran Inj) 4 mg Q6H PRN IV NAUSEA/VOMITING; Start 11/08/18 at 00:00 Albuterol/ Ipratropium (Duoneb) 3 ml Q2H RESP THERAPY PRN HHN SHORTNESS OF BREATH; Start 11/08/18 at 00:00 Acetaminophen (Tylenol Supp) 650 mg Q6H PRN [place] FEVER OR PAIN Last administered on 11/08/18 16:30; Admin Dose 650 MG; Start 11/08/18 at 05:00 Vancomycin HCl (Vanco Iv Per Pharmacy) VANCOMYCIN PER PHARMACY PER PROTOCOL XX ; Start 11/08/18 at 16:30 Vancomycin HCl 250 ml @ 125 mls/hr Q24H IVPB Last administered on 11/09/18 19:15; Admin Dose 125 MLS/HR; Start 11/08/18 at 18:00 Propofol 100 ml @ 1.776 mls/ hr Q12H IV Last administered on 11/10/18 13:00; Admin Dose 3.552 MLS/HR; Start 11/08/18 at 17:00 Oseltamivir Phosphate (Tamiflu) 30 mg BID PO Last administered on 11/10/18 08:45; Admin Dose 30 MG; Start 11/08/18 at 20:00 Phenylephrine HCl 80 mg/Dextrose 250 ml @ 18.75 mls/ hr TITRATE IV Last administered on 11/10/18 15:44; Admin Dose 56.25 MLS/HR; Start 11/09/18 at 00:30 Amiodarone HCl 900 mg/Dextrose 500 ml @ 0 mls/hr Q0M IV Last administered on 11/10/18 01:33; Admin Dose 16.66 MLS/HR; Start 11/09/18 at 01:00 Norepinephrine 32 mg/Dextrose 250 ml @ 0.47 mls/hr TITRATE IV Last administered on 11/10/18 09:40; Admin Dose 0.47 MLS/HR; Start 11/09/18 at 01:00 Vasopressin 60 unit/Dextrose 60 ml @ 1.2 mls/hr Q12H IV Last administered on 11/10/18 01:56; Admin Dose 2.4 MLS/HR; Start 11/09/18 at 01:00 Miscellaneous Information (*Rx Drug Level Order Reminder*) AGNESO TR 11/10 AT 1700 1700 ONCE XX ; Start 11/10/18 at 17:00; Stop 11/10/18 at 17:01 Eye Lubricant (Artificial Tears Oph) 2 drop QID BOTH EYES Last administered on 11/10/18 16:27; Admin Dose 2 DROP; Start 11/09/18 at 17:00 Sodium Bicarbonate 100 meq/Dextrose 1,000 ml @ 75 mls/hr [id number] IV Last administered on 11/10/18 09:32; Admin Dose 75 MLS/HR; Start 11/10/18 at 09:00 Fentanyl 100 ml @ 2.5 mls/hr TITRATE IV Last administered on 11/10/18 11:04; Admin Dose 2.5 MLS/HR; Start 11/10/18 at 10:00 Sodium Chloride 1,000 ml @ 75 mls/hr [id number] IV Last administered on 11/10/18 11:20; Admin Dose 75 MLS/HR; Start 11/10/18 at 10:30 Albumin Human 100 ml @ 100 mls/hr Q8H IV Last administered on 11/10/18at 11:47; Admin Dose 100 MLS/HR; Start 11/10/18 at 11:30; Stop 11/11/18 at 04:29 Meropenem/Sodium Chloride 50 ml @ 100 mls/hr Q12 IVPB ; Start 11/10/18 at 21:00 Levetiracetam 100 ml @ 400 mls/hr ONCE ONCE IVPB Last administered on 11/10/18 16:27; Admin Dose 400 MLS/HR; Start 11/10/18 at 17:00; Stop 11/10/18 at 17:14 Levetiracetam 100 ml @ 400 mls/hr Q12 IVPB ; Start 11/11/18 at 08:00 Allergies: Coded Allergies: No Known Allergies (Verified Allergy, Mild, 10/30/10) Past Surgical History Past Surgical Hx: other (pacemaker) Social History Alcohol Use: none Smoking Status: Former smoker Drug Use: none Exam/Review of Systems Exam Vitals Vital Signs Date Temp Pulse Resp B/P (MAP) Pulse Ox O2 O2 Flow FiO2 Time Delivery Rate 11/10/18 126 16:00 11/10/18 20 108/64 98 15:45 (79) 11/10/18 [place] 15:00 l Ventilato r 11/10/18 100.4 12:00 11/10/18 45 11:10 11/07/18 6.0 23:24 Intake and Output 11/09/18 11/09/18 11/10/18 1515:00 23:00 07:00 IntakeIntake Total 823.00 ml 1182.580 ml 664.466 ml OutputOutput Total 215 ml 260 ml 180 ml BalanceBalance 608.00 ml 922.580 ml 484.466 ml Results Result Diagram: 11/10/18 0400 11/10/18 0400 Results 24hrs Laboratory Tests Test 11/10/18 04:00 11/10/18 04:51 11/10/18 07:00 White Blood Count 11.6 #H Red Blood Count 3.48 #L Hemoglobin 9.8 #L Hematocrit 30.3 #L Mean Corpuscular Volume 87.1 Mean Corpuscular 28.2 L Hemoglobin Mean Corpuscular 32.3 Hemoglobin Concent Red Cell Distribution 18.4 H Width Platelet Count 21 #*L Mean Platelet Volume Immature Granulocytes % 5.100 H Neutrophils % Segmented Neutrophils 57 % (Manual) Band Neutrophils % 40 H (Manual) Lymphocytes % Lymphocytes % (Manual) 1 L Reactive Lymphocytes 1 H % (Manual) Monocytes % Eosinophils % Basophils % Promyelocytes % 1 H (Manual) Nucleated Red Blood 3 H Cells % Immature Granulocytes # 0.590 H Neutrophils # Neutrophils # (Manual) 7.1 Band Neutrophils # 4.6 H Lymphocytes (Manual) 0.1 L Lymphocytes # Reactive Lymphocytes # 0.1 H Monocytes # Eosinophils # Basophils # Promyelocytes # 0.1 H Nucleated Red Blood Cells # Platelet Estimate SIG DECREASED Giant Platelets 4 H Polychromasia 3+ Poikilocytosis 3+ Anisocytosis 2+ Macrocytosis 2+ Sodium Level 134 L Potassium Level 5.1 Chloride Level 107 Carbon Dioxide Level 13 L Anion Gap 14 H Blood Urea Nitrogen 90 H Creatinine 1.38 H Est Glomerular Filtrat 38 L Rate mL/min Glucose Level 127 # Calcium Level 7.1 L Phosphorus Level 8.7 #H Magnesium Level 2.7 H Free Thyroxine 0.93 Free Triiodothyronine 1.51 L (T3) pg/mL Lab Scanned Report BLOOD TRANSFUSION Blood Gas Specimen Blood arterial Source Arterial Blood Date 11/10/2018 7:15:01 AM Drawn Arterial Blood pH 7.187 *L (Temp corrected) Arterial Blood pCO2 29.6 L (Temp correct) Arterial Blood pO2 92.5 (Temp corrected) Arterial Blood HCO3 11.0 L Arterial Blood Base -15.9 L Excess Arterial Blood 95.5 Oxygen Saturation Frantz Test N/A Arterial Blood Gas Right Brachial Puncture Site Arterial 0.5 Blood Carboxyhemoglobin Arterial Blood 0.3 Methemoglobin Blood Gas A-a O2 194.7 H Differential Oxyhemoglobin Percent 94.7 Blood Gas Temperature 37.0 Blood Gas Respiration 20.0 Rate Blood Gas Actual 23 Respiration Rate Blood Gas Modality VENT - AC FiO2 45.0 Blood Gas Tidal Volume 500.0 Blood Gas Low PEEP 5.0 Setting Blood Gas Critical OTIS RN Value Read Back Blood Gas Notified Whom TM Blood Gas Notified 11/10/2018 8:05:14 AM Time Medications Medication Current Medications Levalbuterol (Xopenex Neb) 0.63 mg Q3H RESP THERAPY PRN HHN WHEEZING AND SOB Last administered on 11/08/18at 08:24; Admin Dose 0.63 MG; Start 11/07/18 at 23:00 Ipratropium Odum (Atrovent 0.02% (Neb)) 0.5 mg Q3H RESP THERAPY PRN HHN WHEEZING AND SOB Last administered on 11/07/18at 23:23; Admin Dose 0.5 MG; Start 11/07/18 at 23:00 IV Flush (NS 3 ml) 3 ml PER PROTOCOL IV ; Start 11/08/18 at 00:00 Ondansetron HCl (Zofran Inj) 4 mg Q6H PRN IV NAUSEA/VOMITING; Start 11/08/18 at 00:00 Albuterol/ Ipratropium (Duoneb) 3 ml Q2H RESP THERAPY PRN HHN SHORTNESS OF BREATH; Start 11/08/18 at 00:00 Acetaminophen (Tylenol Supp) 650 mg Q6H PRN [place] FEVER OR PAIN Last administered on 11/08/18at 16:30; Admin Dose 650 MG; Start 11/08/18 at 05:00 Vancomycin HCl (Vanco Iv Per Pharmacy) VANCOMYCIN PER PHARMACY PER PROTOCOL XX ; Start 11/08/18 at 16:30 Vancomycin HCl 250 ml @ 125 mls/hr Q24H IVPB Last administered on 11/09/18 19:15; Admin Dose 125 MLS/HR; Start 11/08/18 at 18:00 Propofol 100 ml @ 1.776 mls/ hr Q12H IV Last administered on 11/10/18 13:00; Admin Dose 3.552 MLS/HR; Start 11/08/18 at 17:00 Oseltamivir Phosphate (Tamiflu) 30 mg BID PO Last administered on 11/10/18 08:45; Admin Dose 30 MG; Start 11/08/18 at 20:00 Phenylephrine HCl 80 mg/Dextrose 250 ml @ 18.75 mls/ hr TITRATE IV Last administered on 11/10/18 15:44; Admin Dose 56.25 MLS/HR; Start 11/09/18 at 00:30 Amiodarone HCl 900 mg/Dextrose 500 ml @ 0 mls/hr Q0M IV Last administered on 11/10/18 01:33; Admin Dose 16.66 MLS/HR; Start 11/09/18 at 01:00 Norepinephrine 32 mg/Dextrose 250 ml @ 0.47 mls/hr TITRATE IV Last administered on 11/10/18 09:40; Admin Dose 0.47 MLS/HR; Start 11/09/18 at 01:00 Vasopressin 60 unit/Dextrose 60 ml @ 1.2 mls/hr Q12H IV Last administered on 11/10/18 01:56; Admin Dose 2.4 MLS/HR; Start 11/09/18 at 01:00 Miscellaneous Information (*Rx Drug Level Order Reminder*) DANUTA CANO 11/10 AT 1700 1700 ONCE XX ; Start 11/10/18 at 17:00; Stop 11/10/18 at 17:01 Eye Lubricant (Artificial Tears Oph) 2 drop QID BOTH EYES Last administered on 11/10/18 16:27; Admin Dose 2 DROP; Start 11/09/18 at 17:00 Sodium Bicarbonate 100 meq/Dextrose 1,000 ml @ 75 mls/hr [id number] IV Last administered on 11/10/18 09:32; Admin Dose 75 MLS/HR; Start 11/10/18 at 09:00 Fentanyl 100 ml @ 2.5 mls/hr TITRATE IV Last administered on 4/2/19at 11:04; Admin Dose 2.5 MLS/HR; Start 11/10/18 at 10:00 Sodium Chloride 1,000 ml @ 75 mls/hr [id number] IV Last administered on 11/10/18at 11:20; Admin Dose 75 MLS/HR; Start 11/10/18 at 10:30 Albumin Human 100 ml @ 100 mls/hr Q8H IV Last administered on 11/10/18at 11:47; Admin Dose 100 MLS/HR; Start 11/10/18 at 11:30; Stop 11/11/18 at 04:29 Meropenem/Sodium Chloride 50 ml @ 100 mls/hr Q12 IVPB ; Start 11/10/18 at 21:00 Levetiracetam 100 ml @ 400 mls/hr ONCE ONCE IVPB Last administered on 11/10/18at 16:27; Admin Dose 400 MLS/HR; Start 11/10/18 at 17:00; Stop 11/10/18 at 17:14 Levetiracetam 100 ml @ 400 mls/hr Q12 IVPB ; Start 11/11/18 at 08:00 RAMÍREZ ESTEBAN Nov 10, 2018 17:54
[2018-11-10] MEDS: VANCOMYCIN 1 GM 250 ML IVPB SCH (18:54)
--- NOTE | 2018-11-10 19:42 | RADRPT ---
Echocardiogram Report Patient Name: Hema PACKERent ID: [id number] : 1950 (68y 3m)Study Date: 11/10/2018 2:55:01 PM Gender: FAccession #: [id number] Tech: Zak Peña [facility] Location: [address] Ref.Physician: JAZZMINE VEALZQUEZ Height(Cm): BSA: Weight(Kg): Quality: Technically Difficult StudyAccount #: Procedures: Echocardiographic Report: Transthoracic echocardiogram with complete 2D, M-Mode, and doppler examination. Indications: Tachycardia. Measurements: 2D/M Mode Doppler Measurement Value Normal Range Measurement Value Normal Range LVIDd 2D 4.3 [ 3.8 - 5.2 ] cm AV Peak Isak 1.4 [ 100.0 - 170.0 ] cm/sec LVIDs 2D 3.6 [ 2.2 - 3.5 ] cm AV Peak PG 8.0 [ 2.0 - 9.0 ] mmHg LVPWd 2D 1.3 [ 0.6 - 0.9 ] cm LVOT Peak Isak 1.1 [ 70.0 - 110.0 ] cm/sec IVSd 2D 1.3 [ 0.6 - 0.9 ] cm LVOT Peak PG 5.0 [ 2.0 - 6.0 ] mmHg AoR Diam 2D 2.7 [ 2.3 - 3.1 ] cm MV E Peak Isak 0.7 [ 60.0 - 130.0 ] cm/sec EDV 2D 82.2 [ 46.0 - 106.0 ] ml MV A Peak Isak 0.3 [ 100.0 - 120.0 ] cm/sec ESV 2D 53.0 [ 14.0 - 42.0 ] ml MV E/A 2.3 [ 0.8 - 1.5 ] ratio EF 2D 35.5 [ 54.0 - 74.0 ] percent MV Decel Time 180 [ 104 - 258 ] msec LA Dimen 2D 4.3 [ 2.7 - 3.8 ] cm Lat E` Isak 0.2 [ 10.0 - 15.0 ] cm/sec Lateral E/E` 4.4 [ 1.0 - 2.0 ] ratio MV E/A 2.3 [ 0.8 - 1.5 ] ratio TR Peak Isak 2.2 [ 100.0 - 280.0 ] cm/sec TR Peak PG 20.0 mmHg RVSP 28.0 [ 10.0 - 36.0 ] mmHg Findings: Left Ventricle: Lower limits of normal systolic function. Normal left ventricular cavity size. Mild concentric left ventricular hypertrophy. Ejection fraction is visually estimated at 50 %. Right Ventricle: Normal right ventricular size. Normal right ventricular systolic function. Left Atrium: There is mild enlargement of left atrium. Right Atrium: The right atrium is normal in size. Mitral Valve: Mild mitral leaflet calcification. Mild mitral annular calcification. Trace mitral regurgitation. Aortic Valve: No hemodynamically significant aortic stenosis by doppler. Aortic cusps appear mildly calcified. Tricuspid Valve: Normal appearance of the tricuspid valve. Estimated peak PA systolic pressure 28 mmHg. There is mild tricuspid regurgitation. Pulmonic Valve: Pulmonic valve not well visualized. Pericardium: Normal pericardium with no significant pericardial effusion. Aorta: Normal aortic root. IVC: Inferior vena cava without respiratory collapse, however, patient on ventilator. Conclusions: Technically difficult study due to patient condition. Mild concentric left ventricular hypertrophy with normal systolic function. Mild left atrial enlargement. Mild tricuspid regurgitation with normal measured pulmonary pressure. Trace mitral regurgitation. Electronically Signed By: Jazzmine Velazquez 2018-11-10 19:41:33 PDT
[2018-11-10] MEDS: MEROPENEM 500MG/50 ML (PMX) 50 ML IVPB SCH (20:22)
[2018-11-10] MEDS ORDERED: LORAZEPAM 2 MG INJ ONE (21:10)
[2018-11-10] MEDS ORDERED: LORAZEPAM 2 MG INJ IV PRN (21:30)
[2018-11-10] MEDS: MIDAZOLAM (DRIP) 50 mg/50 mL 50 ML IV SCH (23:04)
[2018-11-11] VITALS (100 sets, daily range): BP systolic 61–165; BP diastolic 12–139; PULSE 66–141; RESP 15–29
[2018-11-11] MEDS: SODIUM BICARBONATE (IV ADD) 100 MEQ in DEXTROSE 5% 1,000 ML IV SCH (00:32)
[2018-11-11] MEDS ORDERED: ACETAMINOPHEN 650MG/20.3ML CUP NGT PRN (01:00)
[2018-11-11] MEDS: PROPOFOL 100 ML IV SCH ×3 (01:03→12:12)
[2018-11-11] MEDS: VASOPRESSIN 60 UNIT in DEXTROSE 5% 57 ML IV SCH ×3 (01:06→22:32)
[2018-11-11] MEDS: LORAZEPAM 2 MG INJ IV PRN ×5 (01:08→10:20)
[2018-11-11] MEDS: PHENYLephrine 80 MG in DEXTROSE 5% 242 ML IV SCH ×5 (01:08→19:14)
[2018-11-11] MEDS ORDERED: LORAZEPAM 2 MG INJ IV ONE (02:00)
[2018-11-11] MEDS ORDERED: LEVETIRACETAM 1000 MG (PMX) 100 ML IVPB ONE (02:00)
[2018-11-11] MEDS: ALBUMIN HUMAN 25% 100 ML IV SCH (02:36)
[2018-11-11] MEDS: SOD CHLORIDE 0.9% 1,000 ML IV SCH (02:39)
[2018-11-11] MEDS: MIDAZOLAM (DRIP) 50 mg/50 mL 50 ML IV SCH ×4 (02:41→17:51)
[2018-11-11] MEDS: PANTOPRAZOLE 40 MG INJ IV SCH (05:38)
[2018-11-11] MEDS: AMIODARONE 900 MG in DEXTROSE 5% 482 ML IV SCH (06:40)
[2018-11-11] MEDS ORDERED: NA BICARBONATE 8.4% 50 ML SYG IV ONE (07:00)
--- NOTE | 2018-11-11 07:27 | CONS ---
Consultation Date/Type/Reason Admit Date/Time Nov 07, 2018 at 21:25 Date/Time of Note DATE: 11/11/18 TIME: 07:25 Hx of Present Illness Patient has deteriorated overnight she is on 100% FiO2 she is maxed out on pressors and she has had seizures. I put out 3 phone calls to her this morning to the only number which is available we will continue to try and call her patient needs to be converted to comfort measures. Yesterday evening I spent an extensive period of time asking her to speak to her sisters to consider changing CODE STATUS. We will continue to try and vigorously contact her this morning before patient needs to to undergo CPR. Past Medical History Medical History: cancer (Had a static renal cell carcinoma), hypothyroid, other (See HPI) Home Meds Reported Medications Ondansetron Hcl* (Zofran*) 4 Mg Tab, 4 MG PO Q6H PRN for NAUSEA AND OR VOMITING, TAB 11/08/18 Hydromorphone Hcl* (Dilaudid* Inj) 4 Mg/Ml Soln, 0.5 MG IV Q4H PRN for SEVERE PAIN, EA 11/07/18 Tizanidine Hcl* (Zanaflex*) 2 Mg Tablet, 2 MG PO Q6H PRN for SPASTICITY, TAB 11/07/18 Acetaminophen* (Tylenol*) 325 Mg Tablet, 650 MG PO Q4H PRN for fever/pain, TAB 11/07/18 Levothyroxine Sodium* (Synthroid*) 125 Mcg Tablet, 125 MCG PO BEFORE BREAKFAST, #30 TAB 11/07/18 Sennosides* (Senna Lax*) 8.6 Mg Tablet, 2 TAB PO DAILY for constipation, TAB 11/07/18 Oxycodone HCl/Acetaminophen (Percocet 5-325 mg Tablet) 1 Each Tablet, 1 EACH PO Q4 PRN for PAIN, TAB 11/07/18 [multivitamin] No Conflict Check, 1 TAB ORAL DAILY 11/07/18 Morphine Sulfate (Morphine Sulfate ER) 30 Mg Tablet.er, 30 MG PO Q12, TAB 11/07/18 [Miralax powder] No Conflict Check, 17 GM ORAL DAILY for constipation 11/07/18 Magnesium Hydroxide* (Milk Of Magnesia*) 400 Mg/5 Ml Oral.susp, 30 ML PO DAILY PRN for constipation, ML 11/07/18 [Melatonin] No Conflict Check, 0.5 MG HS for insomia 11/07/18 [Lidocaine patch] No Conflict Check, 1 PATCH TOPICAL DAILY for lower back pain 11/07/18 [fleet enema ] No Conflict Check, 1 UNIT RECTAL q72 hours for constipation 11/07/18 Famotidine* (Famotidine*) 20 Mg Tablet, 20 MG PO BID, #60 TAB 11/07/18 Bisacodyl* (Dulcolax*) 5 Mg Tablet.dr, 10 MG PO q48hrs PRN for CONSTIPATION, TAB 11/07/18 Dexamethasone* (Dexamethasone*) 4 Mg Tablet, 4 MG PO BID, TAB 11/07/18 Clonidine Hcl* (Clonidine Hcl*) 0.1 Mg Tab, 0.1 MG PO Q6 PRN for systolic BP >160, TAB 11/07/18 Calcium Carbonate* (Calcium Carbonate*) 600 MG Ca Tab, 1200 MG PO QID PRN for indigestion, TAB 11/07/18 Amlodipine Besylate* (Norvasc*) 5 Mg Tablet, 5 MG PO DAILY, TAB hold for systolic BP < 110 or HR <60 11/07/18 Medications Current Medications Levalbuterol (Xopenex Neb) 0.63 mg Q3H RESP THERAPY PRN HHN WHEEZING AND SOB Last administered on 11/08/18at 08:24; Admin Dose 0.63 MG; Start 11/07/18 at 23:00 Ipratropium [place] (Atrovent 0.02% (Neb)) 0.5 mg Q3H RESP THERAPY PRN HHN WHEEZING AND SOB Last administered on 11/07/18at 23:23; Admin Dose 0.5 MG; Start 11/07/18 at 23:00 IV Flush (NS 3 ml) 3 ml PER PROTOCOL IV ; Start 11/08/18 at 00:00 Ondansetron HCl (Zofran Inj) 4 mg Q6H PRN IV NAUSEA/VOMITING; Start 11/08/18 at 00:00 Albuterol/ Ipratropium (Duoneb) 3 ml Q2H RESP THERAPY PRN HHN SHORTNESS OF BREATH; Start 11/08/18 at 00:00 Vancomycin HCl (Vanco Iv Per Pharmacy) VANCOMYCIN PER PHARMACY PER PROTOCOL XX ; Start 11/08/18 at 16:30 Vancomycin HCl 250 ml @ 125 mls/hr Q24H IVPB Last administered on 11/10/18 18:54; Admin Dose 125 MLS/HR; Start 11/08/18 at 18:00 Propofol 100 ml @ 1.776 mls/ hr Q12H IV Last administered on 11/11/18 06:40; Admin Dose 17.76 MLS/HR; Start 11/08/18 at 17:00 Oseltamivir Phosphate (Tamiflu) 30 mg BID PO Last administered on 11/10/18 20:20; Admin Dose 30 MG; Start 11/08/18 at 20:00 Phenylephrine HCl 80 mg/Dextrose 250 ml @ 18.75 mls/ hr TITRATE IV Last administered on 11/11/18 05:43; Admin Dose 56.25 MLS/HR; Start 11/09/18 at 00:30 Amiodarone HCl 900 mg/Dextrose 500 ml @ 0 mls/hr Q0M IV Last administered on 11/11/18 06:40; Admin Dose 16.66 MLS/HR; Start 11/09/18 at 01:00 Norepinephrine 32 mg/Dextrose 250 ml @ 0.47 mls/hr TITRATE IV Last administered on 11/10/18 09:40; Admin Dose 0.47 MLS/HR; Start 11/09/18 at 01:00 Vasopressin 60 unit/Dextrose 60 ml @ 1.2 mls/hr Q12H IV Last administered on 11/11/18 01:06; Admin Dose 2.4 MLS/HR; Start 11/09/18 at 01:00 Eye Lubricant (Artificial Tears Oph) 2 drop QID BOTH EYES Last administered on 11/10/18 20:21; Admin Dose 2 DROP; Start 11/09/18 at 17:00 Fentanyl 100 ml @ 2.5 mls/hr TITRATE IV Last administered on 11/10/18 23:57; Admin Dose 10 MLS/HR; Start 11/10/18 at 10:00 Meropenem/Sodium Chloride 50 ml @ 100 mls/hr Q12 IVPB Last administered on 11/10/18 20:22; Admin Dose 100 MLS/HR; Start 11/10/18 at 21:00 Levetiracetam 100 ml @ 400 mls/hr Q12 IVPB ; Start 11/11/18 at 08:00 Midazolam HCl 50 ml @ 1 mls/hr TITRATE IV Last administered on 11/11/18at 02:41; Admin Dose 10 MLS/HR; Start 11/10/18 at 21:30 Lorazepam (Ativan) 2 mg Q1H PRN IV seizures and aggitation Last administered on 11/11/18at 06:40; Admin Dose 2 MG; Start 11/11/18 at 00:30 Acetaminophen (Tylenol Liquid) 650 mg Q4H PRN NGT MILD PAIN(1-3)OR ELEVATED TEMP Last administered on 11/11/18at 01:09; Admin Dose 650 MG; Start 11/11/18 at 01:00 Pantoprazole (Protonix Iv) 40 mg DAILY@06 IV Last administered on 11/11/18at 05:38; Admin Dose 40 MG; Start 11/11/18 at 06:00 Sodium Bicarbonate 150 meq/Dextrose 1,150 ml @ 75 mls/hr [id number] IV ; Start 11/11/18 at 07:30 Allergies: Coded Allergies: No Known Allergies (Verified Allergy, Mild, 10/30/10) Past Surgical History Past Surgical Hx: other (pacemaker) Social History Alcohol Use: none Smoking Status: Former smoker Drug Use: none Exam/Review of Systems Exam Vitals Vital Signs Date Temp Pulse Resp B/P (MAP) Pulse Ox O2 O2 Flow FiO2 Time Delivery Rate 11/11/18 77 23 89 100 06:01 11/11/18 110/47 06:00 (68) 11/11/18 99.5 04:00 11/10/18 Mechanical 19:00 Ventilator 11/07/18 6.0 23:24 Intake and Output 11/10/18 11/10/18 11/11/18 1515:00 23:00 07:00 IntakeIntake Total 1580.018 ml 3022.110 ml 1972.26 ml OutputOutput Total 350 ml 145 ml 200 ml BalanceBalance 1230.018 ml 2877.110 ml 1772.26 ml Results Result Diagram: 11/11/18 0508 11/11/18 0508 Results 24hrs Laboratory Tests Test 11/10/18 17:30 11/11/18 02:44 11/11/18 05:08 Vancomycin Level Trough 16.8 Blood Gas Specimen Source Blood arterial Arterial Blood Date Drawn 11/11/2018 2:55:06 AM Arterial Blood pH 7.172 *L (Temp corrected) Arterial Blood pCO2 39.7 (Temp correct) Arterial Blood pO2 71.9 L (Temp corrected) Arterial Blood HCO3 14.2 L Arterial Blood Base Excess -13.3 L Arterial Blood 91.8 L Oxygen Saturation Frantz Test ACCEPTAB Arterial Blood Gas Left HEEL Puncture Site Arterial 1.4 Blood Carboxyhemoglobin Arterial Blood Methemoglobin 0.3 Blood Gas A-a O2 Differential 239.9 H Oxyhemoglobin Percent 90.2 L Blood Gas Temperature 37.0 Blood Gas Respiration Rate 20.0 Blood Gas Actual 20 Respiration Rate Blood Gas Modality VENT - AC FiO2 50.0 Blood Gas Tidal Volume 500.0 Blood Gas Low PEEP Setting 5.0 Blood Gas Inspiratory Pressure 21.0 Blood Gas Critical Value JAKE Corbin RN Read Back Blood Gas Notified Whom Blood Gas Notified Time 11/11/2018 3:06:14 AM White Blood Count 7.2 # Red Blood Count 2.46 #L Hemoglobin 7.0 #L Hematocrit 21.9 #L Mean Corpuscular Volume 89.0 Mean Corpuscular Hemoglobin 28.5 L Mean Corpuscular 32.0 Hemoglobin Concent Red Cell Distribution Width 19.1 H Platelet Count 15 #*L Mean Platelet Volume Immature Granulocytes % 1.800 H Neutrophils % Lymphocytes % Monocytes % Eosinophils % Basophils % Nucleated Red Blood Cells % 7.1 H Immature Granulocytes # 0.130 H Neutrophils # Lymphocytes # Monocytes # Eosinophils # Basophils # Nucleated Red Blood Cells # Sodium Level 130 L Potassium Level 5.4 H Chloride Level 97 # Carbon Dioxide Level 17 L Anion Gap 16 H Blood Urea Nitrogen 87 H Creatinine 1.41 H Est Glomerular Filtrat 37 L Rate mL/min Glucose Level 107 Calcium Level 6.5 L Phosphorus Level 9.3 H Magnesium Level 2.5 Medications Medication Current Medications Levalbuterol (Xopenex Neb) 0.63 mg Q3H RESP THERAPY PRN HHN WHEEZING AND SOB Last administered on 11/08/18at 08:24; Admin Dose 0.63 MG; Start 11/07/18 at 23:00 Ipratropium [place] (Atrovent 0.02% (Neb)) 0.5 mg Q3H RESP THERAPY PRN HHN WHEEZING AND SOB Last administered on 11/07/18at 23:23; Admin Dose 0.5 MG; Start 11/07/18 at 23:00 IV Flush (NS 3 ml) 3 ml PER PROTOCOL IV ; Start 11/08/18 at 00:00 Ondansetron HCl (Zofran Inj) 4 mg Q6H PRN IV NAUSEA/VOMITING; Start 11/08/18 at 00:00 Albuterol/ Ipratropium (Duoneb) 3 ml Q2H RESP THERAPY PRN HHN SHORTNESS OF BREATH; Start 11/08/18 at 00:00 Vancomycin HCl (Vanco Iv Per Pharmacy) VANCOMYCIN PER PHARMACY PER PROTOCOL XX ; Start 11/08/18 at 16:30 Vancomycin HCl 250 ml @ 125 mls/hr Q24H IVPB Last administered on 11/10/18 18:54; Admin Dose 125 MLS/HR; Start 11/08/18 at 18:00 Propofol 100 ml @ 1.776 mls/ hr Q12H IV Last administered on 11/11/18 06:40; Admin Dose 17.76 MLS/HR; Start 11/08/18 at 17:00 Oseltamivir Phosphate (Tamiflu) 30 mg BID PO Last administered on 11/10/18 2 0:20; Admin Dose 30 MG; Start 11/08/18 at 20:00 Phenylephrine HCl 80 mg/Dextrose 250 ml @ 18.75 mls/ hr TITRATE IV Last administered on 11/11/18 05:43; Admin Dose 56.25 MLS/HR; Start 11/09/18 at 00:30 Amiodarone HCl 900 mg/Dextrose 500 ml @ 0 mls/hr Q0M IV Last administered on 11/11/18 06:40; Admin Dose 16.66 MLS/HR; Start 11/09/18 at 01:00 Norepinephrine 32 mg/Dextrose 250 ml @ 0.47 mls/hr TITRATE IV Last administered on 11/10/18 09:40; Admin Dose 0.47 MLS/HR; Start 11/09/18 at 01:00 Vasopressin 60 unit/Dextrose 60 ml @ 1.2 mls/hr Q12H IV Last administered on 11/11/18 01:06; Admin Dose 2.4 MLS/HR; Start 11/09/18 at 01:00 Eye Lubricant (Artificial Tears Oph) 2 drop QID BOTH EYES Last administered on 11/10/18 20:21; Admin Dose 2 DROP; Start 11/09/18 at 17:00 Fentanyl 100 ml @ 2.5 mls/hr TITRATE IV Last administered on 11/10/18at 23:57; Admin Dose 10 MLS/HR; Start 11/10/18 at 10:00 Meropenem/Sodium Chloride 50 ml @ 100 mls/hr Q12 IVPB Last administered on 11/10/18at 20:22; Admin Dose 100 MLS/HR; Start 11/10/18 at 21:00 Levetiracetam 100 ml @ 400 mls/hr Q12 IVPB ; Start 11/11/18 at 08:00 Midazolam HCl 50 ml @ 1 mls/hr TITRATE IV Last administered on 11/11/18at 02:41; Admin Dose 10 MLS/HR; Start 11/10/18 at 21:30 Lorazepam (Ativan) 2 mg Q1H PRN IV seizures and aggitation Last administered on 11/11/18at 06:40; Admin Dose 2 MG; Start 11/11/18 at 00:30 Acetaminophen (Tylenol Liquid) 650 mg Q4H PRN NGT MILD PAIN(1-3)OR ELEVATED TEMP Last administered on 11/11/18at 01:09; Admin Dose 650 MG; Start 11/11/18 at 01:00 Pantoprazole (Protonix Iv) 40 mg DAILY@06 IV Last administered on 11/11/18at 05:38; Admin Dose 40 MG; Start 11/11/18 at 06:00 Sodium Bicarbonate 150 meq/Dextrose 1,150 ml @ 75 mls/hr [id number] IV ; Start 11/11/18 at 07:30 RAMÍREZ ESTEBAN Nov 11, 2018 07:27
[2018-11-11] MEDS: FENTAnyl (DRIP) 1000 mcg/100mL 100 ML IV SCH ×2 (08:00→18:02)
--- NOTE | 2018-11-11 08:12 | CONS ---
DATE OF ADMISSION: 11/07/2018 DATE OF CONSULTATION: 11/11/2018 TYPE OF CONSULTATION: Nephrology. REASON FOR CONSULTATION: Acute kidney injury. PHYSICIAN REQUESTING CONSULTATION: Dr. Quinn. HISTORY OF PRESENT ILLNESS: This is a 68-year-old female with a past medical history of renal carcin rissa with metastasis, history of arrhythmia, status post pacemaker, history of sleep apnea, hypothyroi dism, who presents to [facility] Emergency Room for altered mental status and lethargy. The patient 5 days prior to admission was noted to be alert per family. The patient was at our facility , was noted to have increasing lethargy, weakness and altered status. As a result, she came to the e mergency room, the patient upon arrival had a CT scan of the brain, which was negative. The patient was noted to be influenza positive, was started on therapy and admitted to telemetry. The patient th en had a rapid response called and was transferred to intensive care unit where the patient was intub ated. The patient became hypotensive and septic shock, possibly due to aspiration pneumonia. The pa tient was started on pressor support, IV fluids, antibiotic therapy. The patient then developed seiz ure activity and was placed on Versed drip. The patient also had arrhythmia persistent SVTs. In terms of patient's renal history, the patient's baseline renal function is unknown. On admission, the patient had a creatinine of 1.2 mg/dL. The patient's creatinine has increased to 1.4 mg/dL duri ng the hospital course. The patient was also noted to have progressive azotemia and has noted to hav e minimal urinary output in the last 8 hours. There have been no reports of any hemoptysis, hemateme sis or hematochezia. PAST MEDICAL HISTORY: As stated above, history of metastatic renal cell carcinoma, history of sleep apnea, history of arrhythmia. PAST SURGICAL HISTORY: Status post pacemaker placement, status post cyst removal from right breast s tatus post right wrist surgery. FAMILY HISTORY: No family history of kidney disease. SOCIAL HISTORY: She does not drink, smoke or do drugs. MEDICATIONS: Reviewed. REVIEW OF SYSTEMS: Unable to do adequate review of systems. The patient is obtunded. Pertinent pos itives as obtained by reviewing medical records and speaking to hospital staff, stated in HPI, otherw ise negative. PHYSICAL EXAMINATION: VITAL SIGNS: Blood pressure is 110/47, respirations 24, pulse 77, temperature 98.6. HEENT: Head is normocephalic. NECK: Supple. HEART: Regular rate. LUNGS: Show diminished breath sounds at the base. ABDOMEN: Soft, nontender to palpation. No rebound or guarding. EXTREMITIES: Negative for clubbing, cyanosis. Positive edema. DERMATOLOGIC: No rashes. MUSCULOSKELETAL: No joint effusion. NEUROLOGIC: Limited exam as the patient is obtunded. LABORATORY DATA: Shows sodium 130, potassium 5.4, BUN 87, creatinine 1.41, phosphorus 9.3. White co unt 7.2, hemoglobin 7.0, platelet count is 15. IMAGING STUDIES: The patient's imaging studies have been reviewed. ASSESSMENT AND PLAN: This is a 68-year-old female who presents with: 1. Oliguric acute kidney injury with previous baseline creatinine of 1.2 mg/dL. Etiology of acute k idney injury is concerning for acute tubular necrosis due to sepsis, shock. Other possibilities incl uding acute glomerulonephritis or vasculitis are less likely given the patient's clinical presentatio n. Plan at this point is to repeat UA with microanalysis. We will evaluate the urine under microsNubli py to see if there is evidence of tubular injury. We will check a renal ultrasound. We would otherw ise continue current treatment plan. Continue pressor support to maintain MAP of 65. Continue antib iotic therapy, continue IV hydration, and monitor closely. 2. Hyperkalemia. Etiology is multifactorial secondary to acute kidney injury, metabolic acidemia. We would continue current medical management. Continue to correct underlying acidemia with bicarbona te drip, monitor potassium levels closely. 3. Hypernatremia, etiology is secondary to acute kidney injury causing decreased free water urinary excretion. Continue to monitor sodium levels, would limit any free water flushes if possible to conv ert all piggybacks to normal saline. 4. Mixed acid base disorder. The patient has a metabolic acidosis and respiratory acidosis. The stacey joseph's ABG was reviewed, pCO2 levels are inappropriately elevated for level of acidemia. Recommenda tion would be to increase respiratory rate or tidal volume. Continue bicarbonate drip and monitor. 5. Anemia. Continue to monitor hemoglobin and hematocrit levels closely. 6. Ventilator dependent respiratory failure. Vent settings and ABG was reviewed. Continue to monit or. Follow up with pulmonary. 7. Septic shock, etiology is possibly multifactorial secondary to pneumonia. Continue current broad spectrum antibiotics, continue pressor support. Continue IV fluids. 8. Influenzae. Continue antiviral therapy. 9. 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 Continue to monitor. 10. Acute seizure. Etiology may be toxic metabolic, possible due to metastatic disease. Continue w ith management. Follow up with neurology. 11. Atrial fibrillation, arrhythmia. Continue medical management. The patient is status post pacem roe. 12. Hypothyroidism, acquired. Continue medical management. Follow up with endocrinology. 13. Thrombocytopenia. We will continue to monitor. Transfuse as needed. Thank you, Dr. Quinn, for this interesting consult. It will be a pleasure to follow the patient wi th you throughout the hospital course. Dictated By: JEREMIAH NAPIER DO NR/NTS Conf#: [id number] DID#: [id number] CC: MORIAH QUINN MD; EROS KEE MD; JEREMIAH NAPIER DO; KEANU JORGENSEN MD;*EndCC*
[2018-11-11] MEDS: SODIUM BICARBONATE (IV ADD) 150 MEQ in DEXTROSE 5% 1,000 ML IV SCH ×2 (08:47→22:32)
[2018-11-11] MEDS: LEVETIRACETAM 500 MG (PMX) 100 ML IVPB SCH ×2 (08:47→22:40)
[2018-11-11] MEDS: ARTIFICIAL TEARS 15 ML OPH BOTH EYES SCH ×4 (08:47→22:40)
[2018-11-11] MEDS: OSELTAMIVIR 30 MG CAP PO SCH (08:50)
[2018-11-11] MEDS: MEROPENEM 500MG/50 ML (PMX) 50 ML IVPB SCH ×2 (09:17→22:40)
--- NOTE | 2018-11-11 10:14 | PN ---
Date/Time of Note Date/Time of Note DATE: 11/11/18 TIME: 10:11 Assessment/Plan VTE Prophylaxis Risk score (from Ns)>0 risk: 9 SCD applied (from Ns): Yes Pharmacological prophylaxis: NA/contraindicated Pharm contraindication: bleeding Lines/Catheters IV Catheter Type (from Nrsg): Central Line Central line still needed: Yes Urinary Cath still in place: Yes Reason Cath still needed: other (indicate) Assessment/Plan Hospital Course S: Remains Intubated and sedated for comfort and on 2 pressors O: Constitutional: frail, other (labored breathing ); facial twitching No alert Eyes: icteric; OLIVIA, scleral icterus and conjunctival edema Respiratory: labored breathing, other (no over breathing vent ) Cardiovascular: other (tachycardia ) Gastrointestinal: bowel sounds (hypoactive ), distended, firm Genitourinary - Female: other (vulval edema ) Extremities: other (pedal fullness) assessment and plan: 68-year-old female with a history of metastatic renal cell carcinoma who was brought to the emergency room for altered mentation and lethargy and progressed to respiratory failure requiring ventilator support currently managed as foll ows: Severe sepsis with septic shock Persistent SVTs refractory to amiodarone drip likely 2/ #3 Hypothyroidism with low TSH Acute ventilator dependent resp failure Bilateral pneumonia with Bacteroides fragilis bacteremia Influenza A infection Metastatic renal cell CA with bony mets and reported lung mets and chronic pain Recent pathologic fracture L femur from mets s/p repair Acute toxic metabolic encephalopathy (meds, sepsis) S/p pacemaker Dyslipidemia with low HDL and hypertriglyceridemia Severe anemia s/p transfusion 2 units prbcs, repeat Facial twitching: ?seizures Plan: -transfuse again , hgb continues to drop, send stool OB -appreciate all consults -continue current care -replete electrolytes -Overall prognosis remains extremely poor -Continue ICU supportive care -had extensive discussion with elder daughter, recommend DNR Care time : >50mins Result Diagram: 11/11/18 0508 11/11/18 0508 Results 24hrs Laboratory Tests Test 11/10/18 17:30 11/11/18 02:44 11/11/18 05:08 11/11/18 07:00 Vancomycin 16.8 Level Trough Blood Gas Blood arterial Blood arterial Specimen Source Arterial Blood 11/11/2018 2:55:0 11/11/2018 7:13:5 Date Drawn 6 AM 1 AM Arterial Blood 7.172 *L 7.217 *L pH (Temp corrected ) Arterial Blood 39.7 43.5 pCO2 (Temp correct) Arterial Blood 71.9 L 301.2 H pO2 (Temp corrected ) Arterial Blood 14.2 L 17.3 L HCO3 Arterial Blood -13.3 L -9.7 L Base Excess Arterial Blood 91.8 L 99.4 H Oxygen Saturati on Frantz Test ACCEPTAB ACCEPTAB Arterial Blood Left HEEL Left Radial Gas Puncture Site Arterial 1.4 1.4 Blood Carboxyhe moglobin Arterial Blood 0.3 0 Methemoglobin Blood Gas A-a 239.9 H 368.3 H O2 Differential Oxyhemoglobin 90.2 L 98.0 Percent Blood Gas 37.0 37.0 Temperature Blood Gas 20.0 20.0 Respiration Rate Blood Gas 20 20 Actual Respiration Rat e Blood Gas VENT - AC VENT - AC Modality FiO2 50.0 100.0 Blood Gas Tidal 500.0 500.0 Volume Blood Gas Low 5.0 5.0 PEEP Setting Blood Gas 21.0 Inspiratory Pressure Blood Gas JAKE AZAR RN Critical Value Read Back Blood Gas MR POLK Notified Whom Blood Gas 11/11/2018 3:06:1 11/11/2018 7:22:5 Notified Time 4 AM 1 AM White Blood 7.2 # Count Red Blood Count 2.46 #L Hemoglobin 7.0 #L Hematocrit 21.9 #L Mean 89.0 Corpuscular Volume Mean 28.5 L Corpuscular Hemoglobin Mean 32.0 Corpuscular Hemoglobin Conc ent Red Cell 19.1 H Distribution Width Platelet Count 15 #*L Mean Platelet Volume Immature 1.800 H Granulocytes % Neutrophils % Segmented 57 Neutrophils % (Manual) Band 34 H Neutrophils % (Manual) Lymphocytes % Lymphocytes % 4 L (Manual) Monocytes % Monocytes % 2 (Manual) Eosinophils % Basophils % Basophils % 1 (Manual) Metamyelocytes 3 H % (manual) Nucleated Red 22 H Blood Cells % Immature 0.130 H Granulocytes # Neutrophils # Neutrophils # 4.3 (Manual) Band 2.4 H Neutrophils # Lymphocytes 0.2 L (Manual) Lymphocytes # Monocytes # Monocytes # 0.1 L (Manual) Eosinophils # Basophils # Basophils # 0.0 (Manual) Metamyelocytes 0.2 H # Nucleated Red Blood Cells # Toxic 2+ Granulation Platelet SIG DECREASED Estimate Polychromasia 1+ Hypochromasia 2+ Poikilocytosis 2+ Anisocytosis 1+ Target Cells 1+ Ovalocytes 1+ Sodium Level 130 L Potassium Level 5.4 H Chloride Level 97 # Carbon Dioxide 17 L Level Anion Gap 16 H Blood Urea 87 H Nitrogen Creatinine 1.41 H Est Glomerular 37 L Filtrat Rate mL/min Glucose Level 107 Calcium Level 6.5 L Phosphorus 9.3 H Level Magnesium Level 2.5 Exam/Review of Systems Exam Vitals Vital Signs Date Temp Pulse Resp B/P (MAP) Pulse Ox O2 O2 Flow FiO2 Time Delivery Rate 11/11/18 73 08:00 11/11/18 23 89 100 06:01 11/11/18 110/47 06:00 (68) 11/11/18 99.5 04:00 11/10/18 Mechanical 19:00 Ventilator 11/07/18 6.0 23:24 Intake and Output 11/10/18 11/10/18 11/11/18 1515:00 23:00 07:00 IntakeIntake Total 1580.018 ml 3022.110 ml 1972.26 ml OutputOutput Total 350 ml 145 ml 200 ml BalanceBalance 1230.018 ml 2877.110 ml 1772.26 ml Results Results 24hrs Laboratory Tests Test 11/10/18 17:30 11/11/18 02:44 11/11/18 05:08 11/11/18 07:00 Vancomycin 16.8 Level Trough Blood Gas Blood arterial Blood arterial Specimen Source Arterial Blood 11/11/2018 2:55:0 11/11/2018 7:13:5 Date Drawn 6 AM 1 AM Arterial Blood 7.172 *L 7.217 *L pH (Temp corrected ) Arterial Blood 39.7 43.5 pCO2 (Temp correct) Arterial Blood 71.9 L 301.2 H pO2 (Temp corrected ) Arterial Blood 14.2 L 17.3 L HCO3 Arterial Blood -13.3 L -9.7 L Base Excess Arterial Blood 91.8 L 99.4 H Oxygen Saturati on Frantz Test ACCEPTAB ACCEPTAB Arterial Blood Left HEEL Left Radial Gas Puncture Site Arterial 1.4 1.4 Blood Carboxyhe moglobin Arterial Blood 0.3 0 Methemoglobin Blood Gas A-a 239.9 H 368.3 H O2 Differential Oxyhemoglobin 90.2 L 98.0 Percent Blood Gas 37.0 37.0 Temperature Blood Gas 20.0 20.0 Respiration Rate Blood Gas 20 20 Actual Respiration Rat e Blood Gas VENT - AC VENT - AC Modality FiO2 50.0 100.0 Blood Gas Tidal 500.0 500.0 Volume Blood Gas Low 5.0 5.0 PEEP Setting Blood Gas 21.0 Inspiratory Pressure Blood Gas JAKE AZAR RN Critical Value Read Back Blood Gas MR POLK Notified Whom Blood Gas 11/11/2018 3:06:1 11/11/2018 7:22:5 Notified Time 4 AM 1 AM White Blood 7.2 # Count Red Blood Count 2.46 #L Hemoglobin 7.0 #L Hematocrit 21.9 #L Mean 89.0 Corpuscular Volume Mean 28.5 L Corpuscular Hemoglobin Mean 32.0 Corpuscular Hemoglobin Conc ent Red Cell 19.1 H Distribution Width Platelet Count 15 #*L Mean Platelet Volume Immature 1.800 H Granulocytes % Neutrophils % Segmented 57 Neutrophils % (Manual) Band 34 H Neutrophils % (Manual) Lymphocytes % Lymphocytes % 4 L (Manual) Monocytes % Monocytes % 2 (Manual) Eosinophils % Basophils % Basophils % 1 (Manual) Metamyelocytes 3 H % (manual) Nucleated Red 22 H Blood Cells % Immature 0.130 H Granulocytes # Neutrophils # Neutrophils # 4.3 (Manual) Band 2.4 H Neutrophils # Lymphocytes 0.2 L (Manual) Lymphocytes # Monocytes # Monocytes # 0.1 L (Manual) Eosinophils # Basophils # Basophils # 0.0 (Manual) Metamyelocytes 0.2 H # Nucleated Red Blood Cells # Toxic 2+ Granulation Platelet SIG DECREASED Estimate Polychromasia 1+ Hypochromasia 2+ Poikilocytosis 2+ Anisocytosis 1+ Target Cells 1+ Ovalocytes 1+ Sodium Level 130 L Potassium Level 5.4 H Chloride Level 97 # Carbon Dioxide 17 L Level Anion Gap 16 H Blood Urea 87 H Nitrogen Creatinine 1.41 H Est Glomerular 37 L Filtrat Rate mL/min Glucose Level 107 Calcium Level 6.5 L Phosphorus 9.3 H Level Magnesium Level 2.5 Medications Medication Current Medications Levalbuterol (Xopenex Neb) 0.63 mg Q3H RESP THERAPY PRN HHN WHEEZING AND SOB Last administered on 11/08/18at 08:24; Admin Dose 0.63 MG; Start 11/07/18 at 23:00 Ipratropium Schneider (Atrovent 0.02% (Neb)) 0.5 mg Q3H RESP THERAPY PRN HHN WHEEZING AND SOB Last administered on 11/07/18 23:23; Admin Dose 0.5 MG; Start 11/07/18 at 23:00 IV Flush (NS 3 ml) 3 ml PER PROTOCOL IV ; Start 11/08/18 at 00:00 Ondansetron HCl (Zofran Inj) 4 mg Q6H PRN IV NAUSEA/VOMITING; Start 11/08/18 at 00:00 Albuterol/ Ipratropium (Duoneb) 3 ml Q2H RESP THERAPY PRN HHN SHORTNESS OF BREATH; Start 11/08/18 at 00:00 Vancomycin HCl (Vanco Iv Per Pharmacy) VANCOMYCIN PER PHARMACY PER PROTOCOL XX ; Start 11/08/18 at 16:30 Vancomycin HCl 250 ml @ 125 mls/hr Q24H IVPB Last administered on 11/10/18 18:54; Admin Dose 125 MLS/HR; Start 11/08/18 at 18:00 Propofol 100 ml @ 1.776 mls/ hr Q12H IV Last administered on 11/11/18 06:40; Admin Dose 17.76 MLS/HR; Start 11/08/18 at 17:00 Oseltamivir Phosphate (Tamiflu) 30 mg BID PO Last administered on 11/10/18 20:20; Admin Dose 30 MG; Start 11/08/18 at 20:00 Phenylephrine HCl 80 mg/Dextrose 250 ml @ 18.75 mls/ hr TITRATE IV Last administered on 11/11/18 05:43; Admin Dose 56.25 MLS/HR; Start 11/09/18 at 00:30 Amiodarone HCl 900 mg/Dextrose 500 ml @ 0 mls/hr Q0M IV Last administered on 11/11/18 06:40; Admin Dose 16.66 MLS/HR; Start 11/09/18 at 01:00 Norepinephrine 32 mg/Dextrose 250 ml @ 0.47 mls/hr TITRATE IV Last administered on 11/10/18 09:40; Admin Dose 0.47 MLS/HR; Start 11/09/18 at 01:00 Vasopressin 60 unit/Dextrose 60 ml @ 1.2 mls/hr Q12H IV Last administered on 11/11/18 01:06; Admin Dose 2.4 MLS/HR; Start 11/09/18 at 01:00 Eye Lubricant (Artificial Tears Oph) 2 drop QID BOTH EYES Last administered on 11/11/18 08:47; Admin Dose 2 DROP; Start 11/09/18 at 17:00 Fentanyl 100 ml @ 2.5 mls/hr TITRATE IV Last administered on 11/10/18 23:57; Admin Dose 10 MLS/HR; Start 11/10/18 at 10:00 Meropenem/Sodium Chloride 50 ml @ 100 mls/hr Q12 IVPB Last administered on 11/11/18 09:17; Admin Dose 100 MLS/HR; Start 11/10/18 at 21:00 Levetiracetam 100 ml @ 400 mls/hr Q12 IVPB Last administered on 11/11/18 08:47; Admin Dose 400 MLS/HR; Start 11/11/18 at 08:00 Midazolam HCl 50 ml @ 1 mls/hr TITRATE IV Last administered on 11/11/18 07:45; Admin Dose 10 MLS/HR; Start 11/10/18 at 21:30 Lorazepam (Ativan) 2 mg Q1H PRN IV seizures and aggitation Last administered on 11/11/18 08:53; Admin Dose 2 MG; Start 11/11/18 at 00:30 Acetaminophen (Tylenol Liquid) 650 mg Q4H PRN NGT MILD PAIN(1-3)OR ELEVATED TEMP Last administered on 11/11/18 01:09; Admin Dose 650 MG; Start 11/11/18 at 0 1:00 Pantoprazole (Protonix Iv) 40 mg DAILY@06 IV Last administered on 11/11/18 05:38; Admin Dose 40 MG; Start 11/11/18 at 06:00 Sodium Bicarbonate 150 meq/Dextrose 1,150 ml @ 75 mls/hr [id number] IV Last administered on 11/11/18 08:47; Admin Dose 75 MLS/HR; Start 11/11/18 at 07:30 KEANU JORGENSEN Nov 11, 2018 10:14
[2018-11-11] MEDS ORDERED: CA CHLORIDE 10% 10 ML SYRINGE IV ONE (10:30)
--- NOTE | 2018-11-11 10:53 | CONS ---
Consult Date/Type/Reason Admit Date/Time Nov 07, 2018 at 21:25 Initial Consult Date Type of Consult Pulmonary Requesting Provider: KEANU JORGENSEN Date/Time of Note DATE: 11/11/18 TIME: 10:50 Subjective Patient remains somnolent on mechanical ventilation with no evidence of seizure activity. Increased sedation and initiation of antiepileptic medications. Also on multiple vasopressors with labored breathing. Objective Vital Signs Date Temp Pulse Resp B/P (MAP) Pulse Ox O2 O2 Flow FiO2 Time Delivery Rate 11/11/18 69 20 115/43 98 10:30 (67) 11/11/18 Mechanical 10:00 Ventilator 11/11/18 97.9 08:00 11/11/18 100 06:01 11/07/18 6.0 23:24 Intake and Output 11/10/18 11/10/18 11/11/18 1515:00 23:00 07:00 IntakeIntake Total 1580.018 ml 3022.110 ml 1972.26 ml OutputOutput Total 350 ml 145 ml 200 ml BalanceBalance 1230.018 ml 2877.110 ml 1772.26 ml Exam GENERAL: Chronically ill-appearing lady on mechanical ventilation VITAL SIGNS: per chart NECK: Supple. No JVD or lymphadenopathy. CARDIAC EXAM: S1, S2. No added sounds or murmurs. CHEST: Diminished air entry bilaterally ABDOMEN: Soft, nontender. No guarding or rebound. Decreased bowel sounds EXTREMITIES: No cyanosis, clubbing or edema. NEUROLOGIC: Generalized weakness. Vent Setting Ventilator Support Mode: AC Fraction of Inspired Oxygen pe: 100 Positive End Expiratory Pressu: 5.0 Results/Medications Result Diagram: 11/11/18 0508 11/11/18 0508 Results 24 hrs Laboratory Tests Test 11/10/18 17:30 11/11/18 02:44 11/11/18 05:08 11/11/18 07:00 Vancomycin 16.8 Level Trough Blood Gas Blood arterial Blood arterial Specimen Source Arterial Blood 11/11/2018 2:55:0 11/11/2018 7:13:5 Date Drawn 6 AM 1 AM Arterial Blood 7.172 *L 7.217 *L pH (Temp corrected ) Arterial Blood 39.7 43.5 pCO2 (Temp correct) Arterial Blood 71.9 L 301.2 H pO2 (Temp corrected ) Arterial Blood 14.2 L 17.3 L HCO3 Arterial Blood -13.3 L -9.7 L Base Excess Arterial Blood 91.8 L 99.4 H Oxygen Saturati on Frantz Test ACCEPTAB ACCEPTAB Arterial Blood Left HEEL Left Radial Gas Puncture Site Arterial 1.4 1.4 Blood Carboxyhe moglobin Arterial Blood 0.3 0 Methemoglobin Blood Gas A-a 239.9 H 368.3 H O2 Differential Oxyhemoglobin 90.2 L 98.0 Percent Blood Gas 37.0 37.0 Temperature Blood Gas 20.0 20.0 Respiration Rate Blood Gas 20 20 Actual Respiration Rat e Blood Gas VENT - AC VENT - AC Modality FiO2 50.0 100.0 Blood Gas Tidal 500.0 500.0 Volume Blood Gas Low 5.0 5.0 PEEP Setting Blood Gas 21.0 Inspiratory Pressure Blood Gas JAKE AZAR RN Critical Value Read Back Blood Gas MR POLK Notified Whom Blood Gas 11/11/2018 3:06:1 11/11/2018 7:22:5 Notified Time 4 AM 1 AM White Blood 7.2 # Count Red Blood Count 2.46 #L Hemoglobin 7.0 #L Hematocrit 21.9 #L Mean 89.0 Corpuscular Volume Mean 28.5 L Corpuscular Hemoglobin Mean 32.0 Corpuscular Hemoglobin Conc ent Red Cell 19.1 H Distribution Width Platelet Count 15 #*L Mean Platelet Volume Immature 1.800 H Granulocytes % Neutrophils % Segmented 57 Neutrophils % (Manual) Band 34 H Neutrophils % (Manual) Lymphocytes % Lymphocytes % 4 L (Manual) Monocytes % Monocytes % 2 (Manual) Eosinophils % Basophils % Basophils % 1 (Manual) Metamyelocytes 3 H % (manual) Nucleated Red 22 H Blood Cells % Immature 0.130 H Granulocytes # Neutrophils # Neutrophils # 4.3 (Manual) Band 2.4 H Neutrophils # Lymphocytes 0.2 L (Manual) Lymphocytes # Monocytes # Monocytes # 0.1 L (Manual) Eosinophils # Basophils # Basophils # 0.0 (Manual) Metamyelocytes 0.2 H # Nucleated Red Blood Cells # Toxic 2+ Granulation Platelet SIG DECREASED Estimate Polychromasia 1+ Hypochromasia 2+ Poikilocytosis 2+ Anisocytosis 1+ Target Cells 1+ Ovalocytes 1+ Sodium Level 130 L Potassium Level 5.4 H Chloride Level 97 # Carbon Dioxide 17 L Level Anion Gap 16 H Blood Urea 87 H Nitrogen Creatinine 1.41 H Est Glomerular 37 L Filtrat Rate mL/min Glucose Level 107 Calcium Level 6.5 L Phosphorus 9.3 H Level Magnesium Level 2.5 Medications Current Medications Levalbuterol (Xopenex Neb) 0.63 mg Q3H RESP THERAPY PRN HHN WHEEZING AND SOB Last administered on 11/08/18 08:24; Admin Dose 0.63 MG; Start 11/07/18 at 23:00 Ipratropium Timpson (Atrovent 0.02% (Neb)) 0.5 mg Q3H RESP THERAPY PRN HHN WHEEZING AND SOB Last administered on 11/07/18 23:23; Admin Dose 0.5 MG; Start 11/07/18 at 23:00 IV Flush (NS 3 ml) 3 ml PER PROTOCOL IV ; Start 11/08/18 at 00:00 Ondansetron HCl (Zofran Inj) 4 mg Q6H PRN IV NAUSEA/VOMITING; Start 11/08/18 at 00:00 Albuterol/ Ipratropium (Duoneb) 3 ml Q2H RESP THERAPY PRN HHN SHORTNESS OF BREATH; Start 11/08/18 at 00:00 Vancomycin HCl (Vanco Iv Per Pharmacy) VANCOMYCIN PER PHARMACY PER PROTOCOL XX ; Start 11/08/18 at 16:30 Vancomycin HCl 250 ml @ 125 mls/hr Q24H IVPB Last administered on 11/10/18 18:54; Admin Dose 125 MLS/HR; Start 11/08/18 at 18:00 Propofol 100 ml @ 1.776 mls/ hr Q12H IV Last administered on 11/11/18 06:40; Admin Dose 17.76 MLS/HR; Start 11/08/18 at 17:00 Phenylephrine HCl 80 mg/Dextrose 250 ml @ 18.75 mls/ hr TITRATE IV Last administered on 11/11/18 10:18; Admin Dose 56.25 MLS/HR; Start 11/09/18 at 00:30 Amiodarone HCl 900 mg/Dextrose 500 ml @ 0 mls/hr Q0M IV Last administered on 11/11/18 06:40; Admin Dose 16.66 MLS/HR; Start 11/09/18 at 01:00 Norepinephrine 32 mg/Dextrose 250 ml @ 0.47 mls/hr TITRATE IV Last administered on 11/10/18 09:40; Admin Dose 0.47 MLS/HR; Start 11/09/18 at 01:00 Vasopressin 60 unit/Dextrose 60 ml @ 1.2 mls/hr Q12H IV Last administered on 11/11/18 01:06; Admin Dose 2.4 MLS/HR; Start 11/09/18 at 01:00 Eye Lubricant (Artificial Tears Oph) 2 drop QID BOTH EYES Last administered on 11/11/18 08:47; Admin Dose 2 DROP; Start 11/09/18 at 17:00 Fentanyl 100 ml @ 2.5 mls/hr TITRATE IV Last administered on 11/10/18 23:57; Admin Dose 10 MLS/HR; Start 11/10/18 at 10:00 Meropenem/Sodium Chloride 50 ml @ 100 mls/hr Q12 IVPB Last administered on 11/11/18 09:17; Admin Dose 100 MLS/HR; Start 11/10/18 at 21:00 Levetiracetam 100 ml @ 400 mls/hr Q12 IVPB Last administered on 11/11/18 08:47; Admin Dose 400 MLS/HR; Start 11/11/18 at 08:00 Midazolam HCl 50 ml @ 1 mls/hr TITRATE IV Last administered on 11/11/18 07:45; Admin Dose 10 MLS/HR; Start 11/10/18 at 21:30 Lorazepam (Ativan) 2 mg Q1H PRN IV seizures and aggitation Last administered on 11/11/18 10:20; Admin Dose 2 MG; Start 11/11/18 at 00:30 Acetaminophen (Tylenol Liquid) 650 mg Q4H PRN NGT MILD PAIN(1-3)OR ELEVATED TEMP Last administered on 11/11/18 01:09; Admin Dose 650 MG; Start 11/11/18 at 01:00 Pantoprazole (Protonix Iv) 40 mg DAILY@06 IV Last administered on 11/11/18 05:38; Admin Dose 40 MG; Start 11/11/18 at 06:00 Sodium Bicarbonate 150 meq/Dextrose 1,150 ml @ 75 mls/hr [id number] IV Last administered on 11/11/18 08:47; Admin Dose 75 MLS/HR; Start 11/11/18 at 07:30 Calcium Chloride (Ca Chloride 10% Syg) 2,000 mg ONCE ONCE IV ; Start 11/11/18 at 10:30; Stop 11/11/18 at 10:31; Status UNV Oseltamivir Phosphate (Tamiflu Susp) 30 mg BID PO ; Start 11/11/18 at 11:30; Stop 11/13/18 at 09:01 Assessment/Plan Hospital Course (Demo Recall) IMPRESSION 1. Acute hypoxemic respiratory failure. 2. Possible aspiration pneumonia versus healthcare-associated pneumonia. 3. Metastatic renal cell carcinoma. 4. Encephalopathy, toxic metabolic. 5. Severe septic shock secondary to above. 6. Renal insufficiency, likely acute tubular necrosis injury. 7. Anemia questionable GI bleed Plan 1. Continue fluid management. 2. Broad-spectrum antibiotics. 3. Vasopressor. Titrate to map of 65. Transfusion 2 units packed red blood cells 4. Mechanical ventilation. 5. Monitor cell counts. Hold off on platelet transfusion at present no active bleeding. 6. DVT and GI prophylaxis. 7. Palliative care consult given extremely poor overall prognosis. Family wish to continue all current aggressive measures. I had a long discussion with patient's daughter at bedside. Explained extremely poor prognosis and unlikel ihood of patients surviving this admission. I suggested no CPR given that patient is already on multiple vasopressors with seizure activity and metastatic underlying malignancy and likelihood of extremely poor prognosis if she has a cardiac arrest. Family wish to continue all measures for now. Critical care time 40 minutes prognosis very poor TESSA OKEEFE MD, [facility] Nov 11, 2018 10:53
[2018-11-11] MEDS ORDERED: CALCIUM GLUCONATE 10% 2 GM in DEXTROSE 5% 100 ML IVPB ONE (13:00)
[2018-11-11] MEDS: OSELTAMIVIR PHOSPHATE (6 MG/ML PO SYG) PO SCH ×2 (13:03→21:00)
--- NOTE | 2018-11-11 13:32 | CONS ---
Assessment/Plan Assessment/Plan Hospital Course 68 F c/ metastatic Renal Cell Ca and other comorbidities, who is admitted to the [facility] ICU for management of acute respiratory failure in the context of septic shock. She was noted to have generalized twitching, for which neurology is consulted.. Influenza A + CXR + multifocal infiltrates BCx + The clinical picture is concerning for seizure... EEG confirmed an electrographic R frontal seizure, with annotated clinical correlate. ...perhaps provoked by severe electrolyte abnl Encephalitis is less likely...though not yet excluded.. Initial HCT on 11/07 was unremarkable; however worsening thrombocytopenia raises suspicion for interval development of ICH .. As an aside, she presently has fixed and dilated pupils, without appreciable brainstem or cortical response clinically... Medication effect is certainly a confounder.. P: OK to defer LP for now Repeat EEG to evaluate for electrocerebral inactivity Repeat Head CT to exclude interval change Agree w/ Keppra 1 g bid for now Consider the addition of Dilantin should clinical seizures recur Ativan iv prn prolonged seizure or cluster Other management and supportive care per primary Will follow clinically Consultation Date/Type/Reason Admit Date/Time Nov 07, 2018 at 21:25 Type of Consult Neurology Reason for Consultation twitching Requesting Provider: KEANU JORGENSEN Date/Time of Note DATE: 11/11/18 TIME: 13:14 Hx of Present Illness Patient is unable to contribute a Hx. She reportedly developed generalized twitching movements concerning for seizure, for which neurology is consulted. The last event was on 4/2 am...reportedly responsive to Ativan... It is elsewhere noted: 68-year-old female with a history of metastatic renal cell carcinoma who was brought to the emergency room for altered mentation and lethargy and progressed to respiratory failure requiring ventilator support Limited by critical illness Subjective hx not possible: pt non-verbal, pt critical Exam/Review of Systems Exam Vitals Vital Signs Date Temp Pulse Resp B/P (MAP) Pulse Ox O2 O2 Flow FiO2 Time Delivery Rate 11/11/18 70 20 123/55 97 12:30 (77) 11/11/18 98.3 Mechanical 12:00 Ventilator 11/11/18 60 11:10 11/07/18 6.0 23:24 Intake and Output 11/10/18 11/10/18 11/11/18 1515:00 23:00 07:00 IntakeIntake Total 1580.018 ml 3022.110 ml 2064.33 ml OutputOutput Total 350 ml 145 ml 225 ml BalanceBalance 1230.018 ml 2877.110 ml 1839.33 ml Exam PE: Gen Appearance: No Apparent Distress HEENT: Intubated Abdomen: Soft Extremities: Dry NE: The patient was unresponsive. Cranial nerve examination was limited by mental status. Pupils were fixed and dilated. There was no afferent pupillary defect. Funduscopic examination was limited. Face was grossly symmetric, w/ absent corneal and cough reflexes. Tone was normal. Muscle bulk was normal. I did not see fasciculations. The patient withdrew to noxious stimulation x 4. Coordination and gait testing was limited by mental status. Arm and leg reflexes were within normal limits and symmetric. Toro's sign was absent. Plantar responses were flexor. Results Result Diagram: 11/11/18 0508 11/11/18 0508 Results 24hrs Laboratory Tests Test 11/10/18 17:30 11/11/18 02:44 11/11/18 05:08 11/11/18 07:00 Vancomycin 16.8 Level Trough Blood Gas Blood arterial Blood arterial Specimen Source Arterial Blood 11/11/2018 2:55:0 11/11/2018 7:13:5 Date Drawn 6 AM 1 AM Arterial Blood 7.172 *L 7.217 *L pH (Temp corrected ) Arterial Blood 39.7 43.5 pCO2 (Temp correct) Arterial Blood 71.9 L 301.2 H pO2 (Temp corrected ) Arterial Blood 14.2 L 17.3 L HCO3 Arterial Blood -13.3 L -9.7 L Base Excess Arterial Blood 91.8 L 99.4 H Oxygen Saturati on Frantz Test ACCEPTAB ACCEPTAB Arterial Blood Left HEEL Left Radial Gas Puncture Site Arterial 1.4 1.4 Blood Carboxyhe moglobin Arterial Blood 0.3 0 Methemoglobin Blood Gas A-a 239.9 H 368.3 H O2 Differential Oxyhemoglobin 90.2 L 98.0 Percent Blood Gas 37.0 37.0 Temperature Blood Gas 20.0 20.0 Respiration Rate Blood Gas 20 20 Actual Respiration Rat e Blood Gas VENT - AC VENT - AC Modality FiO2 50.0 100.0 Blood Gas Tidal 500.0 500.0 Volume Blood Gas Low 5.0 5.0 PEEP Setting Blood Gas 21.0 Inspiratory Pressure Blood Gas AREVIK B RN JGALDIANO RN Critical Value Read Back Blood Gas MR FELICITAS Notified Whom Blood Gas 11/11/2018 3:06:1 11/11/2018 7:22:5 Notified Time 4 AM 1 AM White Blood 7.2 # Count Red Blood Count 2.46 #L Hemoglobin 7.0 #L Hematocrit 21.9 #L Mean 89.0 Corpuscular Volume Mean 28.5 L Corpuscular Hemoglobin Mean 32.0 Corpuscular Hemoglobin Conc ent Red Cell 19.1 H Distribution Width Platelet Count 15 #*L Mean Platelet Volume Immature 1.800 H Granulocytes % Neutrophils % Segmented 57 Neutrophils % (Manual) Band 34 H Neutrophils % (Manual) Lymphocytes % Lymphocytes % 4 L (Manual) Monocytes % Monocytes % 2 (Manual) Eosinophils % Basophils % Basophils % 1 (Manual) Metamyelocytes 3 H % (manual) Nucleated Red 22 H Blood Cells % Immature 0.130 H Granulocytes # Neutrophils # Neutrophils # 4.3 (Manual) Band 2.4 H Neutrophils # Lymphocytes 0.2 L (Manual) Lymphocytes # Monocytes # Monocytes # 0.1 L (Manual) Eosinophils # Basophils # Basophils # 0.0 (Manual) Metamyelocytes 0.2 H # Nucleated Red Blood Cells # Toxic 2+ Granulation Platelet SIG DECREASED Estimate Polychromasia 1+ Hypochromasia 2+ Poikilocytosis 2+ Anisocytosis 1+ Target Cells 1+ Ovalocytes 1+ Sodium Level 130 L Potassium Level 5.4 H Chloride Level 97 # Carbon Dioxide 17 L Level Anion Gap 16 H Blood Urea 87 H Nitrogen Creatinine 1.41 H Est Glomerular 37 L Filtrat Rate mL/min Glucose Level 107 Calcium Level 6.5 L Phosphorus 9.3 H Level Magnesium Level 2.5 Medications Medication Current Medications Levalbuterol (Xopenex Neb) 0.63 mg Q3H RESP THERAPY PRN HHN WHEEZING AND SOB Last administered on 11/08/18at 08:24; Admin Dose 0.63 MG; Start 11/07/18 at 23:00 Ipratropium [place] (Atrovent 0.02% (Neb)) 0.5 mg Q3H RESP THERAPY PRN HHN WHEEZING AND SOB Last administered on 11/07/18at 23:23; Admin Dose 0.5 MG; Start 11/07/18 at 23:00 IV Flush (NS 3 ml) 3 ml PER PROTOCOL IV ; Start 11/08/18 at 00:00 Ondansetron HCl (Zofran Inj) 4 mg Q6H PRN IV NAUSEA/VOMITING; Start 11/08/18 at 00:00 Albuterol/ Ipratropium (Duoneb) 3 ml Q2H RESP THERAPY PRN HHN SHORTNESS OF BREATH; Start 11/08/18 at 00:00 Vancomycin HCl (Vanco Iv Per Pharmacy) VANCOMYCIN PER PHARMACY PER PROTOCOL XX ; Start 11/08/18 at 16:30 Vancomycin HCl 250 ml @ 125 mls/hr Q24H IVPB Last administered on 11/10/18 18:54; Admin Dose 125 MLS/HR; Start 11/08/18 at 18:00 Propofol 100 ml @ 1.776 mls/ hr Q12H IV Last administered on 11/11/18 12:12; Admin Dose 17.76 MLS/HR; Start 11/08/18 at 17:00 Phenylephrine HCl 80 mg/Dextrose 250 ml @ 18.75 mls/ hr TITRATE IV Last administered on 11/11/18 10:18; Admin Dose 56.25 MLS/HR; Start 11/09/18 at 00:30 Amiodarone HCl 900 mg/Dextrose 500 ml @ 0 mls/hr Q0M IV Last administered on 06:40; Admin Dose 16.66 MLS/HR; Start 11/09/18 at 01:00 Norepinephrine 32 mg/Dextrose 250 ml @ 0.47 mls/hr TITRATE IV Last administered on 11/10/18 09:40; Admin Dose 0.47 MLS/HR; Start 11/09/18 at 01:00 Vasopressin 60 unit/Dextrose 60 ml @ 1.2 mls/hr Q12H IV Last administered on 11/11/18 01:06; Admin Dose 2.4 MLS/HR; Start 11/09/18 at 01:00 Eye Lubricant (Artificial Tears Oph) 2 drop QID BOTH EYES Last administered on 11/11/18 13:03; Admin Dose 2 DROP; Start 11/09/18 at 17:00 Fentanyl 100 ml @ 2.5 mls/hr TITRATE IV Last administered on 11/10/18 23:57; Admin Dose 10 MLS/HR; Start 11/10/18 at 10:00 Meropenem/Sodium Chloride 50 ml @ 100 mls/hr Q12 IVPB Last administered on 11/11/18 09:17; Admin Dose 100 MLS/HR; Start 11/10/18 at 21:00 Levetiracetam 100 ml @ 400 mls/hr Q12 IVPB Last administered on 11/11/18 08:47; Admin Dose 400 MLS/HR; Start 11/11/18 at 08:00 Midazolam HCl 50 ml @ 1 mls/hr TITRATE IV Last administered on 11/11/18 13:03; Admin Dose 10 MLS/HR; Start 11/10/18 at 21:30 Lorazepam (Ativan) 2 mg Q1H PRN IV seizures and aggitation Last administered on 11/11/18 10:20; Admin Dose 2 MG; Start 11/11/18 at 00:30 Acetaminophen (Tylenol Liquid) 650 mg Q4H PRN NGT MILD PAIN(1-3)OR ELEVATED TEMP Last administered on 11/11/18 01:09; Admin Dose 650 MG; Start 11/11/18 at 01:00 Pantoprazole (Protonix Iv) 40 mg DAILY@06 IV Last administered on 11/11/18 05:38; Admin Dose 40 MG; Start 11/11/18 at 06:00 Sodium Bicarbonate 150 meq/Dextrose 1,150 ml @ 75 mls/hr [id number] IV Last administered on 11/11/18 08:47; Admin Dose 75 MLS/HR; Start 11/11/18 at 07:30 Oseltamivir Phosphate (Tamiflu Susp) 30 mg BID PO Last administered on 11/11/18 13:03; Admin Dose 30 MG; Start 11/11/18 at 11:30; Stop 11/13/18 at 09:01 Calcium Gluconate 2 gm/Dextrose 120 ml @ 60 mls/hr ONCE ONCE IVPB Last administered on 11/11/18 13:03; Admin Dose 60 MLS/HR; Start 11/11/18 at 13:00; Stop 11/11/18 at 14:59 Past Medical History Medical History: cancer (Had a static renal cell carcinoma), hypothyroid, other (See HPI) Home Meds Reported Medications Ondansetron Hcl* (Zofran*) 4 Mg Tab, 4 MG PO Q6H PRN for NAUSEA AND OR VOMITING, TAB 11/08/18 Hydromorphone Hcl* (Dilaudid* Inj) 4 Mg/Ml Soln, 0.5 MG IV Q4H PRN for SEVERE PAIN, EA 11/07/18 Tizanidine Hcl* (Zanaflex*) 2 Mg Tablet, 2 MG PO Q6H PRN for SPASTICITY, TAB 11/07/18 Acetaminophen* (Tylenol*) 325 Mg Tablet, 650 MG PO Q4H PRN for fever/pain, TAB 11/07/18 Levothyroxine Sodium* (Synthroid*) 125 Mcg Tablet, 125 MCG PO BEFORE BREAKFAST, #30 TAB 11/07/18 Sennosides* (Senna Lax*) 8.6 Mg Tablet, 2 TAB PO DAILY for constipation, TAB 11/07/18 Oxycodone HCl/Acetaminophen (Percocet 5-325 mg Tablet) 1 Each Tablet, 1 EACH PO Q4 PRN for PAIN, TAB 11/07/18 [multivitamin] No Conflict Check, 1 TAB ORAL DAILY 11/07/18 Morphine Sulfate (Morphine Sulfate ER) 30 Mg Tablet.er, 30 MG PO Q12, TAB 11/07/18 [Miralax powder] No Conflict Check, 17 GM ORAL DAILY for constipation 11/07/18 Magnesium Hydroxide* (Milk Of Magnesia*) 400 Mg/5 Ml Oral.susp, 30 ML PO DAILY PRN for constipation, ML 11/07/18 [Melatonin] No Conflict Check, 0.5 MG HS for insomia 11/07/18 [Lidocaine patch] No Conflict Check, 1 PATCH TOPICAL DAILY for lower back pain 11/07/18 [fleet enema ] No Conflict Check, 1 UNIT RECTAL q72 hours for constipation 11/07/18 Famotidine* (Famotidine*) 20 Mg Tablet, 20 MG PO BID, #60 TAB 11/07/18 Bisacodyl* (Dulcolax*) 5 Mg Tablet.dr, 10 MG PO q48hrs PRN for CONSTIPATION, TAB 11/07/18 Dexamethasone* (Dexamethasone*) 4 Mg Tablet, 4 MG PO BID, TAB 11/07/18 Clonidine Hcl* (Clonidine Hcl*) 0.1 Mg Tab, 0.1 MG PO Q6 PRN for systolic BP >160, TAB 11/07/18 Calcium Carbonate* (Calcium Carbonate*) 600 MG Ca Tab, 1200 MG PO QID PRN for indigestion, TAB 11/07/18 Amlodipine Besylate* (Norvasc*) 5 Mg Tablet, 5 MG PO DAILY, TAB hold for systolic BP < 110 or HR <60 11/07/18 Medications Current Medications Levalbuterol (Xopenex Neb) 0.63 mg Q3H RESP THERAPY PRN HHN WHEEZING AND SOB Last administered on 11/08/18at 08:24; Admin Dose 0.63 MG; Start 11/07/18 at 23:00 Ipratropium [place] (Atrovent 0.02% (Neb)) 0.5 mg Q3H RESP THERAPY PRN HHN WHEEZING AND SOB Last administered on 11/07/18at 23:23; Admin Dose 0.5 MG; Start 11/07/18 at 23:00 IV Flush (NS 3 ml) 3 ml PER PROTOCOL IV ; Start 11/08/18 at 00:00 Ondansetron HCl (Zofran Inj) 4 mg Q6H PRN IV NAUSEA/VOMITING; Start 11/08/18 at 00:00 Albuterol/ Ipratropium (Duoneb) 3 ml Q2H RESP THERAPY PRN HHN SHORTNESS OF BREATH; Start 11/08/18 at 00:00 Vancomycin HCl (Vanco Iv Per Pharmacy) VANCOMYCIN PER PHARMACY PER PROTOCOL XX ; Start 11/08/18 at 16:30 Vancomycin HCl 250 ml @ 125 mls/hr Q24H IVPB Last administered on 11/10/18at 18:54; Admin Dose 125 MLS/HR; Start 11/08/18 at 18:00 Propofol 100 ml @ 1.776 mls/ hr Q12H IV Last administered on 11/11/18at 12:12; Admin Dose 17.76 MLS/HR; Start 11/08/18 at 17:00 Phenylephrine HCl 80 mg/Dextrose 250 ml @ 18.75 mls/ hr TITRATE IV Last administered on 11/11/18 10:18; Admin Dose 56.25 MLS/HR; Start 11/09/18 at 00:30 Amiodarone HCl 900 mg/Dextrose 500 ml @ 0 mls/hr Q0M IV Last administered on 11/11/18 06:40; Admin Dose 16.66 MLS/HR; Start 11/09/18 at 01:00 Norepinephrine 32 mg/Dextrose 250 ml @ 0.47 mls/hr TITRATE IV Last administered on 11/10/18 09:40; Admin Dose 0.47 MLS/HR; Start 11/09/18 at 01:00 Vasopressin 60 unit/Dextrose 60 ml @ 1.2 mls/hr Q12H IV Last administered on 11/11/18 01:06; Admin Dose 2.4 MLS/HR; Start 11/09/18 at 01:00 Eye Lubricant (Artificial Tears Oph) 2 drop QID BOTH EYES Last administered on 11/11/18 13:03; Admin Dose 2 DROP; Start 11/09/18 at 17:00 Fentanyl 100 ml @ 2.5 mls/hr TITRATE IV Last administered on 11/10/18 23:57; Admin Dose 10 MLS/HR; Start 11/10/18 at 10:00 Meropenem/Sodium Chloride 50 ml @ 100 mls/hr Q12 IVPB Last administered on 11/11/18 09:17; Admin Dose 100 MLS/HR; Start 11/10/18 at 21:00 Levetiracetam 100 ml @ 400 mls/hr Q12 IVPB Last administered on 11/11/18 08:47; Admin Dose 400 MLS/HR; Start 11/11/18 at 08:00 Midazolam HCl 50 ml @ 1 mls/hr TITRATE IV Last administered on 11/11/18 13:03; Admin Dose 10 MLS/HR; Start 11/10/18 at 21:30 Lorazepam (Ativan) 2 mg Q1H PRN IV seizures and aggitation Last administered on 11/11/18 10:20; Admin Dose 2 MG; Start 11/11/18 at 00:30 Acetaminophen (Tylenol Liquid) 650 mg Q4H PRN NGT MILD PAIN(1-3)OR ELEVATED TEMP Last administered on 11/11/18 01:09; Admin Dose 650 MG; Start 11/11/18 at 01:00 Pantoprazole (Protonix Iv) 40 mg DAILY@06 IV Last administered on 11/11/18 05:38; Admin Dose 40 MG; Start 11/11/18 at 06:00 Sodium Bicarbonate 150 meq/Dextrose 1,150 ml @ 75 mls/hr [id number] IV Last administered on 11/11/18at 08:47; Admin Dose 75 MLS/HR; Start 11/11/18 at 07:30 Oseltamivir Phosphate (Tamiflu Susp) 30 mg BID PO Last administered on 11/11/18at 13:03; Admin Dose 30 MG; Start 11/11/18 at 11:30; Stop 11/13/18 at 09:01 Calcium Gluconate 2 gm/Dextrose 120 ml @ 60 mls/hr ONCE ONCE IVPB Last administered on 11/11/18at 13:03; Admin Dose 60 MLS/HR; Start 11/11/18 at 13:00; Stop 11/11/18 at 14:59 Allergies: Coded Allergies: No Known Allergies (Verified Allergy, Mild, 10/30/10) Past Surgical History Past Surgical Hx: other (pacemaker) Social History Alcohol Use: none Smoking Status: Former smoker Drug Use: none NICOLE LOVELACE Nov 11, 2018 13:25
--- NOTE | 2018-11-11 13:36 | EEG ---
EEG NOTE Report Details DATE OF TEST: 11/10/18 HISTORY: The patient is a 68-year-old F who presents with twitching and ams. This EEG is requested to evaluate for seizures. to evaluate for an epileptic disorder. to rule out nonconvulsive status epilepticus. SEDATION: Propofol CONDITIONS OF RECORDING: This EEG was recorded digitally on the [employer] machine, using the International 10-20 System of electrodes plus anterior temporals and [place]. STATES SAMPLED: Comatose. FINDINGS: There is an electrographic seizure noted in the right frontal region at the onset of recording.. The background was otherwise predominated by polymorphic delta activity. The normal [id number] frequency-amplitude gradient was absent. Photic stimulation does not elicit any definite driving responses or epileptiform discharges. Hyperventilation was not performed. IMPRESSION: Abnormal electroencephalogram due to: right frontal electrographic seizure and diffuse slowing. NICOLE LOVELACE Nov 11, 2018 13:36
--- NOTE | 2018-11-11 14:13 | CONS ---
Assessment/Plan Assessment/Plan Problems: (1) Acquired hypothyroidism Status: Chronic Comment: At this time she is stable. Would consider the usage of IV levothyroxine 100 mcg a day starting tomorrow. (2) Sepsis due to Gram-negative organism with septic shock Status: Acute Comment: Blood cultures growing Bacteroides fragilis. This is a very bad sign. Prognosis is poor (3) Thrombocytopenia Status: Acute Comment: Due to sepsis (4) Anemia Comment: Due to sepsis (5) Acute renal insufficiency Status: Acute Comment: Multifactorial. Still volume depleted. (6) Influenza A Status: Acute Comment: On appropriate drug treatment (7) Metastatic renal cell carcinoma Status: Chronic Qualifiers: Laterality: right Qualified Codes: C64.1 - Malignant neoplasm of right kidney, except renal pelvis; C79.9 - Secondary malignant neoplasm of unspecified site (8) Seizure disorder Status: Acute Comment: As per neurology consultation Consultation Date/Type/Reason Admit Date/Time Nov 07, 2018 at 21:25 Initial Consult Date 11/10/18 Type of Consult Endocrinology Reason for Consultation History of hypothyroidism on levothyroxine replacement therapy; septic shock; euthyroid sick syndrome; metastatic renal cell carcinoma Requesting Provider: KEANU JORGENSEN Date/Time of Note DATE: 11/11/18 TIME: 14:10 24 HR Interval Summary Subjective hx not possible: pt non-verbal, pt critical status Exam/Review of Systems Exam Vitals Vital Signs Date Temp Pulse Resp B/P (MAP) Pulse Ox O2 O2 Flow FiO2 Time Delivery Rate 11/11/18 70 20 123/55 97 12:30 (77) 11/11/18 98.3 Mechanical 12:00 Ventilator 11/11/18 60 11:10 11/07/18 6.0 23:24 Intake and Output 11/10/18 11/10/18 11/11/18 1515:00 23:00 07:00 IntakeIntake Total 1580.018 ml 3022.110 ml 2156.03 ml OutputOutput Total 350 ml 145 ml 225 ml BalanceBalance 1230.018 ml 2877.110 ml 1931.03 ml Exam No change in critical status Constitutional: non-verbal ENMT: intubated Results Result Diagram: 11/11/18 0508 11/11/18 0508 Results 24hrs Laboratory Tests Test 11/10/18 17:30 11/11/18 02:44 11/11/18 05:08 11/11/18 07:00 Vancomycin 16.8 Level Trough Blood Gas Blood arterial Blood arterial Specimen Source Arterial Blood 11/11/2018 2:55:0 11/11/2018 7:13:5 Date Drawn 6 AM 1 AM Arterial Blood 7.172 *L 7.217 *L pH (Temp corrected ) Arterial Blood 39.7 43.5 pCO2 (Temp correct) Arterial Blood 71.9 L 301.2 H pO2 (Temp corrected ) Arterial Blood 14.2 L 17.3 L HCO3 Arterial Blood -13.3 L -9.7 L Base Excess Arterial Blood 91.8 L 99.4 H Oxygen Saturati on Frantz Test ACCEPTAB ACCEPTAB Arterial Blood Left HEEL Left Radial Gas Puncture Site Arterial 1.4 1.4 Blood Carboxyhe moglobin Arterial Blood 0.3 0 Methemoglobin Blood Gas A-a 239.9 H 368.3 H O2 Differential Oxyhemoglobin 90.2 L 98.0 Percent Blood Gas 37.0 37.0 Temperature Blood Gas 20.0 20.0 Respiration Rate Blood Gas 20 20 Actual Respiration Rat e Blood Gas VENT - AC VENT - AC Modality FiO2 50.0 100.0 Blood Gas Tidal 500.0 500.0 Volume Blood Gas Low 5.0 5.0 PEEP Setting Blood Gas 21.0 Inspiratory Pressure Blood Gas JAKE AZAR RN Critical Value Read Back Blood Gas MR POLK Notified Whom Blood Gas 11/11/2018 3:06:1 11/11/2018 7:22:5 Notified Time 4 AM 1 AM White Blood 7.2 # Count Red Blood Count 2.46 #L Hemoglobin 7.0 #L Hematocrit 21.9 #L Mean 89.0 Corpuscular Volume Mean 28.5 L Corpuscular Hemoglobin Mean 32.0 Corpuscular Hemoglobin Conc ent Red Cell 19.1 H Distribution Width Platelet Count 15 #*L Mean Platelet Volume Immature 1.800 H Granulocytes % Neutrophils % Segmented 57 Neutrophils % (Manual) Band 34 H Neutrophils % (Manual) Lymphocytes % Lymphocytes % 4 L (Manual) Monocytes % Monocytes % 2 (Manual) Eosinophils % Basophils % Basophils % 1 (Manual) Metamyelocytes 3 H % (manual) Nucleated Red 22 H Blood Cells % Immature 0.130 H Granulocytes # Neutrophils # Neutrophils # 4.3 (Manual) Band 2.4 H Neutrophils # Lymphocytes 0.2 L (Manual) Lymphocytes # Monocytes # Monocytes # 0.1 L (Manual) Eosinophils # Basophils # Basophils # 0.0 (Manual) Metamyelocytes 0.2 H # Nucleated Red Blood Cells # Toxic 2+ Granulation Platelet SIG DECREASED Estimate Polychromasia 1+ Hypochromasia 2+ Poikilocytosis 2+ Anisocytosis 1+ Target Cells 1+ Ovalocytes 1+ Sodium Level 130 L Potassium Level 5.4 H Chloride Level 97 # Carbon Dioxide 17 L Level Anion Gap 16 H Blood Urea 87 H Nitrogen Creatinine 1.41 H Est Glomerular 37 L Filtrat Rate mL/min Glucose Level 107 Calcium Level 6.5 L Phosphorus 9.3 H Level Magnesium Level 2.5 Medications Medication Current Medications Levalbuterol (Xopenex Neb) 0.63 mg Q3H RESP THERAPY PRN HHN WHEEZING AND SOB Last administered on 11/08/18at 08:24; Admin Dose 0.63 MG; Start 11/07/18 at 23:00 Ipratropium [place] (Atrovent 0.02% (Neb)) 0.5 mg Q3H RESP THERAPY PRN HHN WHEEZING AND SOB Last administered on 11/07/18at 23:23; Admin Dose 0.5 MG; Start 11/07/18 at 23:00 IV Flush (NS 3 ml) 3 ml PER PROTOCOL IV ; Start 11/08/18 at 00:00 Ondansetron HCl (Zofran Inj) 4 mg Q6H PRN IV NAUSEA/VOMITING; Start 11/08/18 at 00:00 Albuterol/ Ipratropium (Duoneb) 3 ml Q2H RESP THERAPY PRN HHN SHORTNESS OF BREATH; Start 11/08/18 at 00:00 Vancomycin HCl (Vanco Iv Per Pharmacy) VANCOMYCIN PER PHARMACY PER PROTOCOL XX ; Start 11/08/18 at 16:30 Vancomycin HCl 250 ml @ 125 mls/hr Q24H IVPB Last administered on 11/10/18at 18:54; Admin Dose 125 MLS/HR; Start 11/08/18 at 18:00 Propofol 100 ml @ 1.776 mls/ hr Q12H IV Last administered on 11/11/18at 12:12; Admin Dose 17.76 MLS/HR; Start 11/08/18 at 17:00 Phenylephrine HCl 80 mg/Dextrose 250 ml @ 18.75 mls/ hr TITRATE IV Last administered on 11/11/18 10:18; Admin Dose 56.25 MLS/HR; Start 11/09/18 at 00:30 Amiodarone HCl 900 mg/Dextrose 500 ml @ 0 mls/hr Q0M IV Last administered on 11/11/18 06:40; Admin Dose 16.66 MLS/HR; Start 11/09/18 at 01:00 Norepinephrine 32 mg/Dextrose 250 ml @ 0.47 mls/hr TITRATE IV Last administered on 11/10/18 09:40; Admin Dose 0.47 MLS/HR; Start 11/09/18 at 01:00 Vasopressin 60 unit/Dextrose 60 ml @ 1.2 mls/hr Q12H IV Last administered on 11/11/18 01:06; Admin Dose 2.4 MLS/HR; Start 11/09/18 at 01:00 Eye Lubricant (Artificial Tears Oph) 2 drop QID BOTH EYES Last administered on 11/11/18 13:03; Admin Dose 2 DROP; Start 11/09/18 at 17:00 Fentanyl 100 ml @ 2.5 mls/hr TITRATE IV Last administered on 11/11/18 08:00; Admin Dose 10 MLS/HR; Start 11/10/18 at 10:00 Meropenem/Sodium Chloride 50 ml @ 100 mls/hr Q12 IVPB Last administered on 11/11/18 09:17; Admin Dose 100 MLS/HR; Start 11/10/18 at 21:00 Levetiracetam 100 ml @ 400 mls/hr Q12 IVPB Last administered on 11/11/18 08 :47; Admin Dose 400 MLS/HR; Start 11/11/18 at 08:00 Midazolam HCl 50 ml @ 1 mls/hr TITRATE IV Last administered on 11/11/18 13:03; Admin Dose 10 MLS/HR; Start 11/10/18 at 21:30 Lorazepam (Ativan) 2 mg Q1H PRN IV seizures and aggitation Last administered on 11/11/18 10:20; Admin Dose 2 MG; Start 11/11/18 at 00:30 Acetaminophen (Tylenol Liquid) 650 mg Q4H PRN NGT MILD PAIN(1-3)OR ELEVATED TEMP Last administered on 4/3/19at 01:09; Admin Dose 650 MG; Start 11/11/18 at 01:00 Pantoprazole (Protonix Iv) 40 mg DAILY@06 IV Last administered on 11/11/18at 05:38; Admin Dose 40 MG; Start 11/11/18 at 06:00 Sodium Bicarbonate 150 meq/Dextrose 1,150 ml @ 75 mls/hr [id number] IV Last administered on 11/11/18at 08:47; Admin Dose 75 MLS/HR; Start 11/11/18 at 07:30 Oseltamivir Phosphate (Tamiflu Susp) 30 mg BID PO Last administered on 11/11/18at 13:03; Admin Dose 30 MG; Start 11/11/18 at 11:30; Stop 11/13/18 at 09:01 Calcium Gluconate 2 gm/Dextrose 120 ml @ 60 mls/hr ONCE ONCE IVPB Last administered on 11/11/18at 13:03; Admin Dose 60 MLS/HR; Start 11/11/18 at 13:00; Stop 11/11/18 at 14:59 LESA WEEBR MD Nov 11, 2018 14:13
--- NOTE | 2018-11-11 14:19 | CONS ---
Assessment/Plan Assessment/Plan Hospital Course (Demo Recall) No acute changes overnight. Patient remains on multiple pressors and getting blood transfusion now. NG tube to suction with moderate amount of residuals. Temperature 98.3 pulse 68 respirations 20 blood pressure 119/48 saturation 98 on vent. T-max 99.7. WBC 7.2 platelets 15 BUN 87 creatinine 1.41 Microbiology: Blood culture on admission grew Bacteroides fragilis, urine culture remain negative repeat blood cultures negative, sputum culture pending influenza A was positive on admission Chest x-ray this morning revealed mild interval increase in patchy right lower lobe infiltrates and left lung infiltrates also increased. See full report Antimicrobials: Meropenem, vancomycin, Tamiflu Indwelling: Endotracheal tube, orogastric tube, Hatch catheter, right femoral triple-lumen catheter Physical examination: Chronically ill-appearing elderly woman who is in no distress. Head atraumatic normocephalic sclera nonicteric. Mucous mucosa dry. Neck is supple, chest rise symmetrical. Breath sounds diminished bases. Heart: S1-S2, irregular irregular. Abdomen distended, bowel sounds absent. Extremities cyanotic and mottled Assessment: 1. Severe sepsis with shock and multisystem organ failure 2. Gram-negative carlos bacteremia 3. Influenza A with superimposed pneumonia 4. Acute respiratory failure 5. Rapid atrial fibrillation 6. Acute renal failure 7. 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 History of permanent pacemaker 9. Anemia and thrombocytopenia Plan: Remains unchanged, hemodynamically unstable, continue present care antibiotics, prognosis poor Consultation Date/Type/Reason Admit Date/Time Nov 07, 2018 at 21:25 Initial Consult Date 11/10/18 Type of Consult id Requesting Provider: KEANU JORGENSEN Date/Time of Note DATE: 11/11/18 TIME: 14:17 Exam/Review of Systems Exam Vitals Vital Signs Date Temp Pulse Resp B/P (MAP) Pulse Ox O2 O2 Flow FiO2 Time Delivery Rate 11/11/18 70 20 123/55 97 12:30 (77) 11/11/18 98.3 Mechanical 12:00 Ventilator 11/11/18 60 11:10 11/07/18 6.0 23:24 Intake and Output 11/10/18 11/10/18 11/11/18 1515:00 23:00 07:00 IntakeIntake Total 1580.018 ml 3022.110 ml 2156.03 ml OutputOutput Total 350 ml 145 ml 225 ml BalanceBalance 1230.018 ml 2877.110 ml 1931.03 ml Results Result Diagram: 11/11/18 0508 11/11/18 0508 Results 24hrs Laboratory Tests Test 11/10/18 17:30 11/11/18 02:44 11/11/18 05:08 11/11/18 07:00 Vancomycin 16.8 Level Trough Blood Gas Blood arterial Blood arterial Specimen Source Arterial Blood 11/11/2018 2:55:0 11/11/2018 7:13:5 Date Drawn 6 AM 1 AM Arterial Blood 7.172 *L 7.217 *L pH (Temp corrected ) Arterial Blood 39.7 43.5 pCO2 (Temp correct) Arterial Blood 71.9 L 301.2 H pO2 (Temp corrected ) Arterial Blood 14.2 L 17.3 L HCO3 Arterial Blood -13.3 L -9.7 L Base Excess Arterial Blood 91.8 L 99.4 H Oxygen Saturati on Frantz Test ACCEPTAB ACCEPTAB Arterial Blood Left HEEL Left Radial Gas Puncture Site Arterial 1.4 1.4 Blood Carboxyhe moglobin Arterial Blood 0.3 0 Methemoglobin Blood Gas A-a 239.9 H 368.3 H O2 Differential Oxyhemoglobin 90.2 L 98.0 Percent Blood Gas 37.0 37.0 Temperature Blood Gas 20.0 20.0 Respiration Rate Blood Gas 20 20 Actual Respiration Rat e Blood Gas VENT - AC VENT - AC Modality FiO2 50.0 100.0 Blood Gas Tidal 500.0 500.0 Volume Blood Gas Low 5.0 5.0 PEEP Setting Blood Gas 21.0 Inspiratory Pressure Blood Gas JAKE AZAR RN Critical Value Read Back Blood Gas MR POLK Notified Whom Blood Gas 11/11/2018 3:06:1 11/11/2018 7:22:5 Notified Time 4 AM 1 AM White Blood 7.2 # Count Red Blood Count 2.46 #L Hemoglobin 7.0 #L Hematocrit 21.9 #L Mean 89.0 Corpuscular Volume Mean 28.5 L Corpuscular Hemoglobin Mean 32.0 Corpuscular Hemoglobin Conc ent Red Cell 19.1 H Distribution Width Platelet Count 15 #*L Mean Platelet Volume Immature 1.800 H Granulocytes % Neutrophils % Segmented 57 Neutrophils % (Manual) Band 34 H Neutrophils % (Manual) Lymphocytes % Lymphocytes % 4 L (Manual) Monocytes % Monocytes % 2 (Manual) Eosinophils % Basophils % Basophils % 1 (Manual) Metamyelocytes 3 H % (manual) Nucleated Red 22 H Blood Cells % Immature 0.130 H Granulocytes # Neutrophils # Neutrophils # 4.3 (Manual) Band 2.4 H Neutrophils # Lymphocytes 0.2 L (Manual) Lymphocytes # Monocytes # Monocytes # 0.1 L (Manual) Eosinophils # Basophils # Basophils # 0.0 (Manual) Metamyelocytes 0.2 H # Nucleated Red Blood Cells # Toxic 2+ Granulation Platelet SIG DECREASED Estimate Polychromasia 1+ Hypochromasia 2+ Poikilocytosis 2+ Anisocytosis 1+ Target Cells 1+ Ovalocytes 1+ Sodium Level 130 L Potassium Level 5.4 H Chloride Level 97 # Carbon Dioxide 17 L Level Anion Gap 16 H Blood Urea 87 H Nitrogen Creatinine 1.41 H Est Glomerular 37 L Filtrat Rate mL/min Glucose Level 107 Calcium Level 6.5 L Phosphorus 9.3 H Level Magnesium Level 2.5 Medications Medication Current Medications Levalbuterol (Xopenex Neb) 0.63 mg Q3H RESP THERAPY PRN HHN WHEEZING AND SOB Last administered on 11/08/18at 08:24; Admin Dose 0.63 MG; Start 11/07/18 at 23:00 Ipratropium [place] (Atrovent 0.02% (Neb)) 0.5 mg Q3H RESP THERAPY PRN HHN WHEEZING AND SOB Last administered on 11/07/18at 23:23; Admin Dose 0.5 MG; Start 11/07/18 at 23:00 IV Flush (NS 3 ml) 3 ml PER PROTOCOL IV ; Start 11/08/18 at 00:00 Ondansetron HCl (Zofran Inj) 4 mg Q6H PRN IV NAUSEA/VOMITING; Start 11/08/18 at 00:00 Albuterol/ Ipratropium (Duoneb) 3 ml Q2H RESP THERAPY PRN HHN SHORTNESS OF BREATH; Start 11/08/18 at 00:00 Vancomycin HCl (Vanco Iv Per Pharmacy) VANCOMYCIN PER PHARMACY PER PROTOCOL XX ; Start 11/08/18 at 16:30 Vancomycin HCl 250 ml @ 125 mls/hr Q24H IVPB Last administered on 11/10/18at 18:54; Admin Dose 125 MLS/HR; Start 11/08/18 at 18:00 Propofol 100 ml @ 1.776 mls/ hr Q12H IV Last administered on 11/11/18 12:12; Admin Dose 17.76 MLS/HR; Start 11/08/18 at 17:00 Phenylephrine HCl 80 mg/Dextrose 250 ml @ 18.75 mls/ hr TITRATE IV Last administered on 11/11/18 10:18; Admin Dose 56.25 MLS/HR; Start 11/09/18 at 00:30 Amiodarone HCl 900 mg/Dextrose 500 ml @ 0 mls/hr Q0M IV Last administered on 11/11/18 06:40; Admin Dose 16.66 MLS/HR; Start 11/09/18 at 01:00 Norepinephrine 32 mg/Dextrose 250 ml @ 0.47 mls/hr TITRATE IV Last administered on 11/10/18 09:40; Admin Dose 0.47 MLS/HR; Start 11/09/18 at 01:00 Vasopressin 60 unit/Dextrose 60 ml @ 1.2 mls/hr Q12H IV Last administered on 11/11/18 01:06; Admin Dose 2.4 MLS/HR; Start 11/09/18 at 01:00 Eye Lubricant (Artificial Tears Oph) 2 drop QID BOTH EYES Last administered on 11/11/18 13:03; Admin Dose 2 DROP; Start 11/09/18 at 17:00 Fentanyl 100 ml @ 2.5 mls/hr TITRATE IV Last administered on 11/11/18 08:00; Admin Dose 10 MLS/HR; Start 11/10/18 at 10:00 Meropenem/Sodium Chloride 50 ml @ 100 mls/hr Q12 IVPB Last administered on 11/11/18 09:17; Admin Dose 100 MLS/HR; Start 11/10/18 at 21:00 Levetiracetam 100 ml @ 400 mls/hr Q12 IVPB Last administered on 11/11/18 08:47; Admin Dose 400 MLS/HR; Start 11/11/18 at 08:00 Midazolam HCl 50 ml @ 1 mls/hr TITRATE IV Last administered on 11/11/18 13:03; Admin Dose 10 MLS/HR; Start 11/10/18 at 21:30 Lorazepam (Ativan) 2 mg Q1H PRN IV seizures and aggitation Last administered on 11/11/18at 10:20; Admin Dose 2 MG; Start 11/11/18 at 00:30 Acetaminophen (Tylenol Liquid) 650 mg Q4H PRN NGT MILD PAIN(1-3)OR ELEVATED TEMP Last administered on 11/11/18at 01:09; Admin Dose 650 MG; Start 11/11/18 at 01:00 Pantoprazole (Protonix Iv) 40 mg DAILY@06 IV Last administered on 11/11/18at 05:38; Admin Dose 40 MG; Start 11/11/18 at 06:00 Sodium Bicarbonate 150 meq/Dextrose 1,150 ml @ 75 mls/hr [id number] IV Last administered on 11/11/18at 08:47; Admin Dose 75 MLS/HR; Start 11/11/18 at 07:30 Oseltamivir Phosphate (Tamiflu Susp) 30 mg BID PO Last administered on 11/11/18at 13:03; Admin Dose 30 MG; Start 11/11/18 at 11:30; Stop 11/13/18 at 09:01 Calcium Gluconate 2 gm/Dextrose 120 ml @ 60 mls/hr ONCE ONCE IVPB Last administered on 11/11/18at 13:03; Admin Dose 60 MLS/HR; Start 11/11/18 at 13:00; Stop 11/11/18 at 14:59 Levothyroxine Sodium (Synthroid Iv) 100 mcg DAILY@06 IV ; Start 11/12/18 at 06:00 Lactated Ringer's 500 ml @ 500 mls/hr Q1H ONCE IV ; Start 11/11/18 at 14:30; Stop 11/11/18 at 15:29 ABDIRASHID LOPEZ [employer] Nov 11, 2018 14:19
[2018-11-11] MEDS ORDERED: LACTATED RINGER'S 500 ML IV ONE (14:30)
[2018-11-11] MEDS: NORepinephrine 32 MG in DEXTROSE 5% 218 ML IV SCH (15:15)
[2018-11-11] MEDS ORDERED: VANCOMYCIN 750 MG (PMX) 250 ML IVPB SCH (18:00)
--- NOTE | 2018-11-11 21:49 | CONS ---
Assessment/Plan Assessment/Plan Hospital Course (Demo Recall) Septic shock Hypotension, on IV pressor VDRF Atrial flutter, currently Sinus/Paced Low normal left ventricular ejection fraction 50% JULIETH Seizure Anemia Thrombocytopenia Malignancy -titrate IV pressor to maintain SBP>90 or MAP>60 -Cont IV Amio Vent management as per pulmonary Fluid management as per renal -Hold all anti-HTN -Plan of care d/w daughter at bedside -Greater than 33 min of critical care time in the care of this patient Consultation Date/Type/Reason Admit Date/Time Nov 07, 2018 at 21:25 Initial Consult Date 11/10/18 Type of Consult Cardiology Requesting Provider: KEANU JORGENSEN Date/Time of Note DATE: 11/11/18 TIME: 21:44 24 HR Interval Summary Free Text/Dictation HR improved after IV amio, IV pressor req decreasing Exam/Review of Systems Vital Signs Vitals Vital Signs Date Temp Pulse Resp B/P (MAP) Pulse Ox O2 O2 Flow FiO2 Time Delivery Rate 11/11/18 134 20 55 20:53 11/11/18 97.7 106/66 99 Mechanical 20:00 (79) Ventilator 11/07/18 6.0 23:24 Intake and Output 11/10/18 11/10/18 11/11/18 1515:00 23:00 07:00 IntakeIntake Total 1580.018 ml 3022.110 ml 2156.03 ml OutputOutput Total 350 ml 145 ml 225 ml BalanceBalance 1230.018 ml 2877.110 ml 1931.03 ml Exam Exam sedated, intubated, NAD, family at bedside Head: normocephalic ENMT: intubated Respiratory: other (course bs, scattered crackles) Cardiovascular: regular rate and rhythm, other Gastrointestinal: soft, distended, other (no grimacing with palp) Genitourinary - Female: other (tyler present) Extremities: edema Labs Result Diagram: 11/11/18 0508 11/11/18 0508 Results 24hrs Laboratory Tests Test 11/11/18 02:44 11/11/18 04:58 11/11/18 05:08 11/11/18 07:00 Blood Gas Blood arterial Blood arterial Specimen Source Arterial Blood 11/11/2018 2:55:0 11/11/2018 7:13:5 Date Drawn 6 AM 1 AM Arterial Blood 7.172 *L 7.217 *L pH (Temp corrected ) Arterial Blood 39.7 43.5 pCO2 (Temp correct) Arterial Blood 71.9 L 301.2 H pO2 (Temp corrected ) Arterial Blood 14.2 L 17.3 L HCO3 Arterial Blood -13.3 L -9.7 L Base Excess Arterial Blood 91.8 L 99.4 H Oxygen Saturati on Frantz Test ACCEPTAB ACCEPTAB Arterial Blood Left HEEL Left Radial Gas Puncture Site Arterial 1.4 1.4 Blood Carboxyhe moglobin Arterial Blood 0.3 0 Methemoglobin Blood Gas A-a 239.9 H 368.3 H O2 Differential Oxyhemoglobin 90.2 L 98.0 Percent Blood Gas 37.0 37.0 Temperature Blood Gas 20.0 20.0 Respiration Rate Blood Gas 20 20 Actual Respiration Rat e Blood Gas VENT - AC VENT - AC Modality FiO2 50.0 100.0 Blood Gas Tidal 500.0 500.0 Volume Blood Gas Low 5.0 5.0 PEEP Setting Blood Gas 21.0 Inspiratory Pressure Blood Gas JAKE AZAR RN Critical Value Read Back Blood Gas MR POLK Notified Whom Blood Gas 11/11/2018 3:06:1 11/11/2018 7:22:5 Notified Time 4 AM 1 AM Random Cortisol 48.6 White Blood 7.2 # Count Red Blood Count 2.46 #L Hemoglobin 7.0 #L Hematocrit 21.9 #L Mean 89.0 Corpuscular Volume Mean 28.5 L Corpuscular Hemoglobin Mean 32.0 Corpuscular Hemoglobin Conc ent Red Cell 19.1 H Distribution Width Platelet Count 15 #*L Mean Platelet Volume Immature 1.800 H Granulocytes % Neutrophils % Segmented 57 Neutrophils % (Manual) Band 34 H Neutrophils % (Manual) Lymphocytes % Lymphocytes % 4 L (Manual) Monocytes % Monocytes % 2 (Manual) Eosinophils % Basophils % Basophils % 1 (Manual) Metamyelocytes 3 H % (manual) Nucleated Red 22 H Blood Cells % Immature 0.130 H Granulocytes # Neutrophils # Neutrophils # 4.3 (Manual) Band 2.4 H Neutrophils # Lymphocytes 0.2 L (Manual) Lymphocytes # Monocytes # Monocytes # 0.1 L (Manual) Eosinophils # Basophils # Basophils # 0.0 (Manual) Metamyelocytes 0.2 H # Nucleated Red Blood Cells # Toxic 2+ Granulation Platelet SIG DECREASED Estimate Polychromasia 1+ Hypochromasia 2+ Poikilocytosis 2+ Anisocytosis 1+ Target Cells 1+ Ovalocytes 1+ Sodium Level 130 L Potassium Level 5.4 H Chloride Level 97 # Carbon Dioxide 17 L Level Anion Gap 16 H Blood Urea 87 H Nitrogen Creatinine 1.41 H Est Glomerular 37 L Filtrat Rate mL/min Glucose Level 107 Calcium Level 6.5 L Phosphorus 9.3 H Level Magnesium Level 2.5 Medications Medications Current Medications Levalbuterol (Xopenex Neb) 0.63 mg Q3H RESP THERAPY PRN HHN WHEEZING AND SOB Last administered on 11/08/18at 08:24; Admin Dose 0.63 MG; Start 11/07/18 at 23:00 Ipratropium [place] (Atrovent 0.02% (Neb)) 0.5 mg Q3H RESP THERAPY PRN HHN WHEEZING AND SOB Last administered on 11/07/18at 23:23; Admin Dose 0.5 MG; Start 11/07/18 at 23:00 IV Flush (NS 3 ml) 3 ml PER PROTOCOL IV ; Start 11/08/18 at 00:00 Ondansetron HCl (Zofran Inj) 4 mg Q6H PRN IV NAUSEA/VOMITING; Start 11/08/18 at 00:00 Albuterol/ Ipratropium (Duoneb) 3 ml Q2H RESP THERAPY PRN HHN SHORTNESS OF BREATH; Start 11/08/18 at 00:00 Vancomycin HCl (Vanco Iv Per Pharmacy) VANCOMYCIN PER PHARMACY PER PROTOCOL XX ; Start 11/08/18 at 16:30 Propofol 100 ml @ 1.776 mls/ hr Q12H IV Last administered on 11/11/18 12:12; Admin Dose 17.76 MLS/HR; Start 11/08/18 at 17:00 Phenylephrine HCl 80 mg/Dextrose 250 ml @ 18.75 mls/ hr TITRATE IV Last administered on 11/11/18 19:14; Admin Dose 48.75 MLS/HR; Start 11/09/18 at 00:30 Amiodarone HCl 900 mg/Dextrose 500 ml @ 0 mls/hr Q0M IV Last administered on 11/11/18 06:40; Admin Dose 16.66 MLS/HR; Start 11/09/18 at 01:00 Norepinephrine 32 mg/Dextrose 250 ml @ 0.47 mls/hr TITRATE IV Last administered on 11/11/18 15:15; Admin Dose 7.03 MLS/HR; Start 11/09/18 at 01:00 Vasopressin 60 unit/Dextrose 60 ml @ 1.2 mls/hr Q12H IV Last administered on 11/11/18 01:06; Admin Dose 2.4 MLS/HR; Start 11/09/18 at 01:00 Eye Lubricant (Artificial Tears Oph) 2 drop QID BOTH EYES Last administered on 11/11/18 17:50; Admin Dose 2 DROP; Start 11/09/18 at 17:00 Fentanyl 100 ml @ 2.5 mls/hr TITRATE IV Last administered on 11/11/18 18:02; Admin Dose 10 MLS/HR; Start 11/10/18 at 10:00 Meropenem/Sodium Chloride 50 ml @ 100 mls/hr Q12 IVPB Last administered on 11/11/18 09:17; Admin Dose 100 MLS/HR; Start 11/10/18 at 21:00 Levetiracetam 100 ml @ 400 mls/hr Q12 IVPB Last administered on 11/11/18 08:4 7; Admin Dose 400 MLS/HR; Start 11/11/18 at 08:00 Midazolam HCl 50 ml @ 1 mls/hr TITRATE IV Last administered on 11/11/18 17:51; Admin Dose 10 MLS/HR; Start 11/10/18 at 21:30 Lorazepam (Ativan) 2 mg Q1H PRN IV seizures and aggitation Last administered on 11/11/18 10:20; Admin Dose 2 MG; Start 11/11/18 at 00:30 Acetaminophen (Tylenol Liquid) 650 mg Q4H PRN NGT MILD PAIN(1-3)OR ELEVATED TEMP Last administered on 11/11/18 01:09; Admin Dose 650 MG; Start 11/11/18 at 01:00 Pantoprazole (Protonix Iv) 40 mg DAILY@06 IV Last administered on 11/11/18 05:38; Admin Dose 40 MG; Start 11/11/18 at 06:00 Sodium Bicarbonate 150 meq/Dextrose 1,150 ml @ 75 mls/hr [id number] IV Last administered on 11/11/18 08:47; Admin Dose 75 MLS/HR; Start 11/11/18 at 07:30 Oseltamivir Phosphate (Tamiflu Susp) 30 mg BID PO Last administered on 11/11/18at 13:03; Admin Dose 30 MG; Start 11/11/18 at 11:30; Stop 11/13/18 at 09:01 Levothyroxine Sodium (Synthroid Iv) 100 mcg DAILY@06 IV ; Start 11/12/18 at 06:00 Vancomycin/Sodium Chloride 250 ml @ 125 mls/hr Q24H IVPB Last administered on 11/11/18at 17:51; Admin Dose 125 MLS/HR; Start 11/11/18 at 18:00 Rik Tejeda DO Nov 11, 2018 21:49
[2018-11-12] VITALS (55 sets, daily range): BP systolic 73–129; BP diastolic 49–94; PULSE 0–179; RESP 0–20
[2018-11-12] MEDS ORDERED: DIGOXIN 500 MCG INJ IV ONE
[2018-11-12] MEDS: PHENYLephrine 80 MG in DEXTROSE 5% 242 ML IV SCH ×3 (00:14→09:07)
[2018-11-12] MEDS: SODIUM BICARBONATE (IV ADD) 150 MEQ in DEXTROSE 5% 1,000 ML IV SCH (00:26)
[2018-11-12] MEDS: PANTOPRAZOLE 40 MG INJ IV SCH (05:13)
[2018-11-12] MEDS ORDERED: LEVOTHYROXINE 100 MCG VIAL IV SCH (06:00)
--- NOTE | 2018-11-12 06:40 | EEG ---
EEG NOTE Report Details DATE OF TEST: 11/11/18 HISTORY: The patient is a 68-year-old F who developed generalized twitching in the context of septic shock. This EEG is requested to evaluate for electrocerebral inactivity. SEDATION: None. CONDITIONS OF RECORDING: This EEG was recorded digitally on the [email or web address] Motost[employer] machine, using the International 10-20 System of electrodes plus anterior temporals and [place]. STATES SAMPLED: Comatose. FINDINGS: There is electrocerebral inactivity. There is EKG artifact noted. IMPRESSION: Abnormal electroencephalogram due to: electrocerebral activity...as is expected in cortical . NICOLE LOVELACE Nov 12, 2018 06:40
--- NOTE | 2018-11-12 06:42 | CONS ---
Assessment/Plan Assessment/Plan Hospital Course 68 F c/ metastatic Renal Cell Ca and other comorbidities, who is admitted to the [facility] ICU for management of acute respiratory failure in the context of septic shock. She was noted to have generalized twitching, for which neurology is consulted.. Influenza A + CXR + multifocal infiltrates BCx + The clinical picture was concerning for seizure... EEG confirmed an electrographic R frontal seizure, with annotated clinical correlate. ...perhaps provoked by severe electrolyte abnl Initial HCT on 11/07 was unremarkable; however worsening thrombocytopenia raised suspicion for interval development of ICH or other acute pathology .. On 11/11 she developed fixed and dilated pupils, without appreciable brainstem or cortical response clinically.. Subsequent repeat EEG was consistent with cortical . P: Now comfort measures only OK to continue Keppra 1 g bid for now Other management and supportive care per primary Will sign off; please call w/ ?s Consultation Date/Type/Reason Admit Date/Time Nov 07, 2018 at 21:25 Type of Consult Neurology Reason for Consultation twitching Requesting Provider: KEANU JORGENSEN Date/Time of Note DATE: 11/12/18 TIME: 06:40 24 HR Interval Summary Free Text/Dictation Continues icu care Exam Vital Signs Vitals Vital Signs Date Temp Pulse Resp B/P (MAP) Pulse Ox O2 O2 Flow FiO2 Time Delivery Rate 11/12/18 138 20 94/69 (77) 06:00 11/12/18 55 05:02 11/12/18 97.7 04:00 11/12/18 100 02:45 11/11/18 Mechanical 20:00 Ventilator Intake and Output 11/11/18 11/11/18 11/12/18 1515:00 23:00 07:00 IntakeIntake Total 1756.3700 ml 2281.30 ml 1125.14 ml OutputOutput Total 1000 ml 500 ml 475 ml BalanceBalance 756.3700 ml 1781.30 ml 650.14 ml NICOLE LOVELACE Nov 12, 2018 06:42
--- NOTE | 2018-11-12 08:04 | CONS ---
Consultation Date/Type/Reason Admit Date/Time Nov 07, 2018 at 21:25 Date/Time of Note DATE: 11/12/18 TIME: 08:03 Hx of Present Illness Patient EEG returned this morning impressions abnormal [place] encephalogram due to electrical cerebral activity, as is expected in cortical . I restart the patient's daughter and the DPOA this morning Florence and explained the results of the EEG. I also explained to her that her state of [place] brain is body and that patient will have to be removed from the ventilator today. She understands she will contact the rest of the family members patient will have a compassionate extubation today. Past Medical History Medical History: cancer (Had a static renal cell carcinoma), hypothyroid, other (See HPI) Home Meds Reported Medications Ondansetron Hcl* (Zofran*) 4 Mg Tab, 4 MG PO Q6H PRN for NAUSEA AND OR VOMITING, TAB 11/08/18 Hydromorphone Hcl* (Dilaudid* Inj) 4 Mg/Ml Soln, 0.5 MG IV Q4H PRN for SEVERE PAIN, EA 11/07/18 Tizanidine Hcl* (Zanaflex*) 2 Mg Tablet, 2 MG PO Q6H PRN for SPASTICITY, TAB 11/07/18 Acetaminophen* (Tylenol*) 325 Mg Tablet, 650 MG PO Q4H PRN for fever/pain, TAB 11/07/18 Levothyroxine Sodium* (Synthroid*) 125 Mcg Tablet, 125 MCG PO BEFORE BREAKFAST, #30 TAB 11/07/18 Sennosides* (Senna Lax*) 8.6 Mg Tablet, 2 TAB PO DAILY for constipation, TAB 11/07/18 Oxycodone HCl/Acetaminophen (Percocet 5-325 mg Tablet) 1 Each Tablet, 1 EACH PO Q4 PRN for PAIN, TAB 11/07/18 [multivitamin] No Conflict Check, 1 TAB ORAL DAILY 11/07/18 Morphine Sulfate (Morphine Sulfate ER) 30 Mg Tablet.er, 30 MG PO Q12, TAB 11/07/18 [Miralax powder] No Conflict Check, 17 GM ORAL DAILY for constipation 11/07/18 Magnesium Hydroxide* (Milk Of Magnesia*) 400 Mg/5 Ml Oral.susp, 30 ML PO DAILY PRN for constipation, ML 11/07/18 [Melatonin] No Conflict Check, 0.5 MG HS for insomia 11/07/18 [Lidocaine patch] No Conflict Check, 1 PATCH TOPICAL DAILY for lower back pain 11/07/18 [fleet enema ] No Conflict Check, 1 UNIT RECTAL q72 hours for constipation 11/07/18 Famotidine* (Famotidine*) 20 Mg Tablet, 20 MG PO BID, #60 TAB 11/07/18 Bisacodyl* (Dulcolax*) 5 Mg Tablet.dr, 10 MG PO q48hrs PRN for CONSTIPATION, TAB 11/07/18 Dexamethasone* (Dexamethasone*) 4 Mg Tablet, 4 MG PO BID, TAB 11/07/18 Clonidine Hcl* (Clonidine Hcl*) 0.1 Mg Tab, 0.1 MG PO Q6 PRN for systolic BP >160, TAB 11/07/18 Calcium Carbonate* (Calcium Carbonate*) 600 MG Ca Tab, 1200 MG PO QID PRN for indigestion, TAB 11/07/18 Amlodipine Besylate* (Norvasc*) 5 Mg Tablet, 5 MG PO DAILY, TAB hold for systolic BP < 110 or HR <60 11/07/18 Medications Current Medications Levalbuterol (Xopenex Neb) 0.63 mg Q3H RESP THERAPY PRN HHN WHEEZING AND SOB Last administered on 11/08/18at 08:24; Admin Dose 0.63 MG; Start 11/07/18 at 23:00 Ipratropium [place] (Atrovent 0.02% (Neb)) 0.5 mg Q3H RESP THERAPY PRN HHN WHEEZING AND SOB Last administered on 11/07/18at 23:23; Admin Dose 0.5 MG; Start 11/07/18 at 23:00 IV Flush (NS 3 ml) 3 ml PER PROTOCOL IV ; Start 11/08/18 at 00:00 Ondansetron HCl (Zofran Inj) 4 mg Q6H PRN IV NAUSEA/VOMITING; Start 11/08/18 at 00:00 Albuterol/ Ipratropium (Duoneb) 3 ml Q2H RESP THERAPY PRN HHN SHORTNESS OF BREATH; Start 11/08/18 at 00:00 Vancomycin HCl (Vanco Iv Per Pharmacy) VANCOMYCIN PER PHARMACY PER PROTOCOL XX ; Start 11/08/18 at 16:30 Propofol 100 ml @ 1.776 mls/ hr Q12H IV Last administered on 11/11/18 12:12; Admin Dose 17.76 MLS/HR; Start 11/08/18 at 17:00 Phenylephrine HCl 80 mg/Dextrose 250 ml @ 18.75 mls/ hr TITRATE IV Last administered on 11/12/18 04:32; Admin Dose 56.25 MLS/HR; Start 11/09/18 at 00:30 Amiodarone HCl 900 mg/Dextrose 500 ml @ 0 mls/hr Q0M IV Last administered on 11/11/18 06:40; Admin Dose 16.66 MLS/HR; Start 11/09/18 at 01:00 Norepinephrine 32 mg/Dextrose 250 ml @ 0.47 mls/hr TITRATE IV Last administered on 11/11/18 15:15; Admin Dose 7.03 MLS/HR; Start 11/09/18 at 01:00 Vasopressin 60 unit/Dextrose 60 ml @ 1.2 mls/hr Q12H IV Last administered on 11/11/18 22:32; Admin Dose 2.4 MLS/HR; Start 11/09/18 at 01:00 Eye Lubricant (Artificial Tears Oph) 2 drop QID BOTH EYES Last administered on 11/11/18 22:40; Admin Dose 2 DROP; Start 11/09/18 at 17:00 Fentanyl 100 ml @ 2.5 mls/hr TITRATE IV Last administered on 11/11/18 18:02; Admin Dose 10 MLS/HR; Start 11/10/18 at 10:00 Meropenem/Sodium Chloride 50 ml @ 100 mls/hr Q12 IVPB Last administered on 11/11/18 22:40; Admin Dose 100 MLS/HR; Start 11/10/18 at 21:00 Levetiracetam 100 ml @ 400 mls/hr Q12 IVPB Last administered on 11/11/18 22:40; Admin Dose 400 MLS/HR; Start 11/11/18 at 08:00 Midazolam HCl 50 ml @ 1 mls/hr TITRATE IV Last administered on 11/11/18 17:51; Admin Dose 10 MLS/HR; Start 11/10/18 at 21:30 Lorazepam (Ativan) 2 mg Q1H PRN IV seizures and aggitation Last administered on 4/3/19at 10:20; Admin Dose 2 MG; Start 11/11/18 at 00:30 Acetaminophen (Tylenol Liquid) 650 mg Q4H PRN NGT MILD PAIN(1-3)OR ELEVATED TEMP Last administered on 11/11/18 01:09; Admin Dose 650 MG; Start 11/11/18 at 01:00 Pantoprazole (Protonix Iv) 40 mg DAILY@06 IV Last administered on 11/12/18 05:13; Admin Dose 40 MG; Start 11/11/18 at 06:00 Sodium Bicarbonate 150 meq/Dextrose 1,150 ml @ 75 mls/hr [id number] IV Last administered on 11/12/18 00:26; Admin Dose 75 MLS/HR; Start 11/11/18 at 07:30 Oseltamivir Phosphate (Tamiflu Susp) 30 mg BID PO Last administered on 11/11/18 13:03; Admin Dose 30 MG; Start 11/11/18 at 11:30; Stop 11/13/18 at 09:01 Levothyroxine Sodium (Synthroid Iv) 100 mcg DAILY@06 IV Last administered on 11/12/18 05:13; Admin Dose 100 MCG; Start 11/12/18 at 06:00 Vancomycin/Sodium Chloride 250 ml @ 125 mls/hr Q24H IVPB Last administered on 11/11/18 17:51; Admin Dose 125 MLS/HR; Start 11/11/18 at 18:00 Allergies: Coded Allergies: No Known Allergies (Verified Allergy, Mild, 10/30/10) Past Surgical History Past Surgical Hx: other (pacemaker) Social History Alcohol Use: none Smoking Status: Former smoker Drug Use: none Exam/Review of Systems Exam Vitals Vital Signs Date Temp Pulse Resp B/P (MAP) Pulse Ox O2 O2 Flow FiO2 Time Delivery Rate 11/12/18 138 20 94/69 (77) 06:00 11/12/18 55 05:02 11/12/18 97.7 04:00 11/12/18 100 02:45 11/11/18 Mechanical 20:00 Ventilator Intake and Output 11/11/18 11/11/18 11/12/18 1515:00 23:00 07:00 IntakeIntake Total 1756.3700 ml 2281.30 ml 1125.14 ml OutputOutput Total 1000 ml 500 ml 475 ml BalanceBalance 756.3700 ml 1781.30 ml 650.14 ml Results Result Diagram: 11/12/18 0501 11/12/18 0501 Results 24hrs Laboratory Tests Test 11/12/18 04:53 11/12/18 05:01 Lab Scanned Report BLOOD TRANSFUSION White Blood Count 6.5 Red Blood Count 4.37 # Hemoglobin 12.2 # Hematocrit 35.8 #L Mean Corpuscular Volume 81.9 L Mean Corpuscular Hemoglobin 27.9 L Mean Corpuscular Hemoglobin Concent 34.1 Red Cell Distribution Width 17.3 H Platelet Count 13 *L Mean Platelet Volume Immature Granulocytes % 0.800 H Neutrophils % Segmented Neutrophils % (Manual) 43 Band Neutrophils % (Manual) 41 H Lymphocytes % Lymphocytes % (Manual) 4 L Monocytes % Monocytes % (Manual) 2 Eosinophils % Eosinophils % (Manual) 2 Basophils % Metamyelocytes % (manual) 7 H Myelocytes % (Manual) 1 H Nucleated Red Blood Cells % 42 H Immature Granulocytes # 0.050 H Neutrophils # Neutrophils # (Manual) 3.0 Band Neutrophils # 2.6 H Lymphocytes (Manual) 0.2 L Lymphocytes # Monocytes # Monocytes # (Manual) 0.1 L Eosinophils # Basophils # Metamyelocytes # 0.4 H Myelocytes # 0.0 Nucleated Red Blood Cells # Toxic Granulation 2+ Platelet Estimate SIG DECREASED Giant Platelets 4 H Hypochromasia 1+ Poikilocytosis 2+ Anisocytosis 1+ Macrocytosis 1+ Sodium Level 130 L Potassium Level 4.0 Chloride Level 92 L Carbon Dioxide Level 23 Anion Gap 15 H Blood Urea Nitrogen 76 H Creatinine 0.92 Est Glomerular Filtrat Rate mL/min > 60 Glucose Level 144 Calcium Level 6.6 L Phosphorus Level 6.5 #H Magnesium Level 2.2 Medications Medication Current Medications Levalbuterol (Xopenex Neb) 0.63 mg Q3H RESP THERAPY PRN HHN WHEEZING AND SOB Last administered on 11/08/18at 08:24; Admin Dose 0.63 MG; Start 11/07/18 at 23:00 Ipratropium [place] (Atrovent 0.02% (Neb)) 0.5 mg Q3H RESP THERAPY PRN HHN WHEEZING AND SOB Last administered on 11/07/18at 23:23; Admin Dose 0.5 MG; Start 11/07/18 at 23:00 IV Flush (NS 3 ml) 3 ml PER PROTOCOL IV ; Start 11/08/18 at 00:00 Ondansetron HCl (Zofran Inj) 4 mg Q6H PRN IV NAUSEA/VOMITING; Start 11/08/18 at 00:00 Albuterol/ Ipratropium (Duoneb) 3 ml Q2H RESP THERAPY PRN HHN SHORTNESS OF BREATH; Start 11/08/18 at 00:00 Vancomycin HCl (Vanco Iv Per Pharmacy) VANCOMYCIN PER PHARMACY PER PROTOCOL XX ; Start 11/08/18 at 16:30 Propofol 100 ml @ 1.776 mls/ hr Q12H IV Last administered on 11/11/18 12:12; Admin Dose 17.76 MLS/HR; Start 11/08/18 at 17:00 Phenylephrine HCl 80 mg/Dextrose 250 ml @ 18.75 mls/ hr TITRATE IV Last administered on 11/12/18 04:32; Admin Dose 56.25 MLS/HR; Start 11/09/18 at 00:30 Amiodarone HCl 900 mg/Dextrose 500 ml @ 0 mls/hr Q0M IV Last administered on 11/11/18 06:40; Admin Dose 16.66 MLS/HR; Start 11/09/18 at 01:00 Norepinephrine 32 mg/Dextrose 250 ml @ 0.47 mls/hr TITRATE IV Last administered on 11/11/18 15:15; Admin Dose 7.03 MLS/HR; Start 11/09/18 at 01:00 Vasopressin 60 unit/Dextrose 60 ml @ 1.2 mls/hr Q12H IV Last administered on 11/11/18 22:32; Admin Dose 2.4 MLS/HR; Start 11/09/18 at 01:00 Eye Lubricant (Artificial Tears Oph) 2 drop QID BOTH EYES Last administered on 11/11/18 22:40; Admin Dose 2 DROP; Start 11/09/18 at 17:00 Fentanyl 100 ml @ 2.5 mls/hr TITRATE IV Last administered on 11/11/18 18:02; Admin Dose 10 MLS/HR; Start 11/10/18 at 10:00 Meropenem/Sodium Chloride 50 ml @ 100 mls/hr Q12 IVPB Last administered on 11/11/18 22:40; Admin Dose 100 MLS/HR; Start 11/10/18 at 21:00 Levetiracetam 100 ml @ 400 mls/hr Q12 IVPB Last administered on 11/11/18 22:40; Admin Dose 400 MLS/HR; Start 11/11/18 at 08:00 Midazolam HCl 50 ml @ 1 mls/hr TITRATE IV Last administered on 11/11/18 17:51; Admin Dose 10 MLS/HR; Start 11/10/18 at 21:30 Lorazepam (Ativan) 2 mg Q1H PRN IV seizures and aggitation Last administered on 11/11/18 10:20; Admin Dose 2 MG; Start 11/11/18 at 00:30 Acetaminophen (Tylenol Liquid) 650 mg Q4H PRN NGT MILD PAIN(1-3)OR ELEVATED TEMP Last administered on 11/11/18 01:09; Admin Dose 650 MG; Start 11/11/18 at 01:00 Pantoprazole (Protonix Iv) 40 mg DAILY@06 IV Last administered on 11/12/18 05:13; Admin Dose 40 MG; Start 11/11/18 at 06:00 Sodium Bicarbonate 150 meq/Dextrose 1,150 ml @ 75 mls/hr [id number] IV Last administered on 11/12/18 00:26; Admin Dose 75 MLS/HR; Start 11/11/18 at 07:30 Oseltamivir Phosphate (Tamiflu Susp) 30 mg BID PO Last administered on 11/11/18 13:03; Admin Dose 30 MG; Start 11/11/18 at 11:30; Stop 11/13/18 at 09:01 Levothyroxine Sodium (Synthroid Iv) 100 mcg DAILY@06 IV Last administered on 11/12/18 05:13; Admin Dose 100 MCG; Start 11/12/18 at 06:00 Vancomycin/Sodium Chloride 250 ml @ 125 mls/hr Q24H IVPB Last administered on 11/11/18 17:51; Admin Dose 125 MLS/HR; Start 11/11/18 at 18:00 RAMÍREZ ESTEBAN Nov 12, 2018 08:04
--- NOTE | 2018-11-12 08:18 | PN ---
DATE: 11/12/2018 SUBJECTIVE: The patient remains critically ill. The patient had EEG performed yesterday which showe d abnormality. The patient was also seen by neurology for possibility of brainstem duct. The patien t remains critically ill on pressor support. Urinary output has been adequate. No other acute event s noted. OBJECTIVE: VITAL SIGNS: Blood pressure is 94/69, respirations 20, pulse 138, temperature 98.6. HEENT: Head is normocephalic. NECK: Supple. HEART: Regular rate. LUNGS: Show diminished breath sounds at the base. ABDOMEN: Soft, nontender to palpation. No rebound or guarding. EXTREMITIES: Negative for clubbing, cyanosis. Trace edema. DERMATOLOGIC: No rashes. MUSCULOSKELETAL: No joint effusion. NEUROLOGIC: No change in exam. MEDICATIONS: Reviewed. LABORATORY DATA: Shows sodium 130, potassium 4.0, chloride 92, BUN 76, creatinine 0.92, phosphorus i s 6.5. The patient's CBC was reviewed. Patient's ABG from 11/11 was reviewed. Cultures have been r eviewed. ASSESSMENT AND PLAN: 1. Nonoliguric acute kidney injury with previous baseline creatinine 1.2 mg/dL. Etiology of acute k idney injury was multifactorial secondary to tubular injury, acute tubular necrosis due to sepsis, sh ock. The patient's renal function however has improved in the last 24 hours. At this point, would jesusita ontinue current treatment plan. Continue pressor support to maintain MAP of 65. Continue antibiotic therapy, continue IV hydration. Continue to renally dose all meds, avoid nephrotoxins. Will monito r closely. Please note, the patient's urinalysis was reviewed and renal ultrasound was reviewed, no evidence of obstruction per renal ultrasound. Noted was a mass right kidney compatible with renal ce ll carcinoma. 2. Hyperkalemia. Etiology secondary to acute kidney injury, metabolic acidemia. Improved. Continu e medical management. Continue bicarbonate drip. 3. Hyponatremia, etiology secondary to acute kidney injury causing decreased free water urinary excr etion in conjunction with hypotonic fluid. Plan is to concentrate all piggybacks in normal saline. Otherwise, will continue to monitor. 4. Mixed acid base disorder. The patient has a metabolic acidosis and respiratory acidosis. The pa tient is on bicarbonate drip. Will continue. Repeat ABG is pending. Bicarbonate levels have been i mproving. Continue to monitor. 5. Anemia. Continue to monitor hemoglobin and hematocrit levels. 6. Ventilatory respiratory failure. Vent settings and ABG was reviewed. Continue to monitor. Foll ow up with pulmonary. 7. Influenza. Continue antiviral therapy. 8. 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 Continue to monitor. 9. Seizure disorder. Continue medical management. 10. Atrial fibrillation. Continue current treatment plan. The patient is status post pacemaker. 11. Hypothyroidism. Continue to monitor. Follow up with endocrinology. 12. Thrombocytopenia. Continue to monitor. 13. 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 The patient is undergoing apnea study. We parvin l continue to monitor. Follow up with neurology for final recommendations. Please note I spent over 30 minutes of critical care time with this patient. Dictated By: JEREMIAH NAPIER DO NR/NTS Conf#: [id number] DID#: [id number] CC: EROS KEE MD;*EndCC*
--- NOTE | 2018-11-12 10:18 | CONS ---
Consult Date/Type/Reason Admit Date/Time Nov 07, 2018 at 21:25 Initial Consult Date Type of Consult Pulmonary Requesting Provider: KEANU JORGENSEN Date/Time of Note DATE: 11/12/18 TIME: 10:16 Subjective Patient unresponsive on mechanical ventilation this morning. EEG consistent with brain . Objective Vital Signs Date Temp Pulse Resp B/P (MAP) Pulse Ox O2 O2 Flow FiO2 Time Delivery Rate 11/12/18 151 20 09:15 11/12/18 110/85 Mechanical 09:00 (93) Ventilator 11/12/18 55 08:00 11/12/18 97.0 08:00 11/12/18 100 02:45 Intake and Output 11/11/18 11/11/18 11/12/18 1414:59 22:59 06:59 IntakeIntake Total 1741.2500 ml 2170.93 ml 1434.40 ml OutputOutput Total 975 ml 550 ml 475 ml BalanceBalance 766.2500 ml 1620.93 ml 959.40 ml Exam GENERAL: Chronically ill-appearing gentleman on mechanical ventilation via tracheostomy VITAL SIGNS: per chart NECK: Supple. No JVD or lymphadenopathy. CARDIAC EXAM: S1, S2. No added sounds or murmurs. CHEST: clear bilaterally, No added sounds, rales or wheezes ABDOMEN: Soft, nontender. No guarding or rebound. EXTREMITIES: No cyanosis, clubbing +2 NEUROLOGIC: Unable to assess, pupils fixed and dilated Skin bilateral decubitus ulcers Vent Setting Ventilator Support Mode: AC Fraction of Inspired Oxygen pe: 55 Positive End Expiratory Pressu: 5.0 Results/Medications Result Diagram: 11/12/18 0501 11/12/18 0501 Results 24 hrs Laboratory Tests Test 11/12/18 04:53 11/12/18 05:01 11/12/18 07:00 Lab Scanned Report BLOOD TRANSFUSION White Blood Count 6.5 Red Blood Count 4.37 # Hemoglobin 12.2 # Hematocrit 35.8 #L Mean Corpuscular Volume 81.9 L Mean Corpuscular 27.9 L Hemoglobin Mean Corpuscular 34.1 Hemoglobin Concent Red Cell Distribution 17.3 H Width Platelet Count 13 *L Mean Platelet Volume Immature Granulocytes % 0.800 H Neutrophils % Segmented Neutrophils 43 % (Manual) Band Neutrophils % 41 H (Manual) Lymphocytes % Lymphocytes % (Manual) 4 L Monocytes % Monocytes % (Manual) 2 Eosinophils % Eosinophils % (Manual) 2 Basophils % Metamyelocytes % 7 H (manual) Myelocytes % (Manual) 1 H Nucleated Red Blood 42 H Cells % Immature Granulocytes # 0.050 H Neutrophils # Neutrophils # (Manual) 3.0 Band Neutrophils # 2.6 H Lymphocytes (Manual) 0.2 L Lymphocytes # Monocytes # Monocytes # (Manual) 0.1 L Eosinophils # Basophils # Metamyelocytes # 0.4 H Myelocytes # 0.0 Nucleated Red Blood Cells # Toxic Granulation 2+ Platelet Estimate SIG DECREASED Giant Platelets 4 H Hypochromasia 1+ Poikilocytosis 2+ Anisocytosis 1+ Macrocytosis 1+ Sodium Level 130 L Potassium Level 4.0 Chloride Level 92 L Carbon Dioxide Level 23 Anion Gap 15 H Blood Urea Nitrogen 76 H Creatinine 0.92 Est Glomerular Filtrat > 60 Rate mL/min Glucose Level 144 Calcium Level 6.6 L Ionized Calcium 0.9 L (Measured) Phosphorus Level 6.5 #H Magnesium Level 2.2 Blood Gas Specimen Blood arterial Source Arterial Blood Date 11/12/2018 7:39:04 AM Drawn Arterial Blood pH 7.357 (Temp corrected) Arterial Blood pCO2 39.1 (Temp correct) Arterial Blood pO2 79.3 L (Temp corrected) Arterial Blood HCO3 21.4 L Arterial Blood Base -3.7 L Excess Arterial Blood 94.7 L Oxygen Saturation Frantz Test N/A Arterial Blood Gas Right Brachial Puncture Site Arterial 1.2 Blood Carboxyhemoglobin Arterial Blood 0.3 Methemoglobin Blood Gas A-a O2 269.4 H Differential Oxyhemoglobin Percent 93.3 Blood Gas Temperature 37.0 Blood Gas Respiration 20.0 Rate Blood Gas Actual 20 Respiration Rate Blood Gas Modality VENT - AC FiO2 55.0 Blood Gas Tidal Volume 500.0 Blood Gas Low PEEP 5.0 Setting Blood Gas Notified Whom TM Blood Gas Notified 11/12/2018 8:26:13 AM Time Medications Current Medications Phenylephrine HCl 80 mg/Dextrose 250 ml @ 18.75 mls/ hr TITRATE IV Last administered on 11/12/18at 09:07; Admin Dose 56.25 MLS/HR; Start 11/09/18 at 00:30 Amiodarone HCl 900 mg/Dextrose 500 ml @ 0 mls/hr Q0M IV Last administered on 11/11/18at 06:40; Admin Dose 16.66 MLS/HR; Start 11/09/18 at 01:00 Norepinephrine 32 mg/Dextrose 250 ml @ 0.47 mls/hr TITRATE IV Last adminis tered on 11/11/18at 15:15; Admin Dose 7.03 MLS/HR; Start 11/09/18 at 01:00 Vasopressin 60 unit/Dextrose 60 ml @ 1.2 mls/hr Q12H IV Last administered on 11/11/18at 22:32; Admin Dose 2.4 MLS/HR; Start 11/09/18 at 01:00 Assessment/Plan Hospital Course (Demo Recall) IMPRESSION 1. Acute hypoxemic respiratory failure. 2. Possible aspiration pneumonia versus healthcare-associated pneumonia. 3. Metastatic renal cell carcinoma. 4. Clinical examination and EEG consistent with brain family will transition to comfort measures when 5. Severe septic shock secondary to above. 6. Renal insufficiency, likely acute tubular necrosis injury. 7. Anemia questionable GI bleed Plan 1. family will transition to comfort measures when DPOA is present. TESSA OKEEFE MD, [facility] Nov 12, 2018 10:17
--- NOTE | 2018-11-12 12:24 | PN ---
Date/Time of Note Date/Time of Note DATE: 11/12/18 TIME: 09:08 Assessment/Plan VTE Prophylaxis Risk score (from Ns)>0 risk: 13 SCD applied (from Ns): Yes Pharmacological prophylaxis: NA/contraindicated Pharm contraindication: bleeding Lines/Catheters IV Catheter Type (from Nrsg): Central Line Central line still needed: Yes Urinary Cath still in place: Yes Reason Cath still needed: other (indicate) Assessment/Plan Hospital Course S: Remains Intubated and sedated for comfort and on 2 pressors O: Constitutional: frail, other (labored breathing ); facial twitching No alert Eyes: icteric; OLIVIA, scleral icterus and conjunctival edema Respiratory: labored breathing, other (no over breathing vent ) Cardiovascular: other (tachycardia ) Gastrointestinal: bowel sounds (hypoactive ), distended, firm Genitourinary - Female: other (vulval edema ) Extremities: other (pedal fullness) assessment and plan: 68-year-old female with a history of metastatic renal cell carcinoma who was brought to the emergency room for altered mentation and lethargy and progressed to respiratory failure requiring ventilator support currently managed as fol lows: Severe sepsis with septic shock Persistent SVTs refractory to amiodarone drip likely 2/2 #3 Hypothyroidism with low TSH Acute ventilator dependent resp failure Bilateral pneumonia with Bacteroides fragilis bacteremia Influenza A infection Metastatic renal cell CA with bony mets and reported lung mets and chronic pain Recent pathologic fracture L femur from mets s/p repair Acute toxic metabolic encephalopathy (meds, sepsis) S/p pacemaker Dyslipidemia with low HDL and hypertriglyceridemia Severe anemia s/p transfusion 2 units prbcs, repeat Facial twitching: ?seizures Plan: -EEG consistent with brain . palliative care working closely with family, p sukhi for extubation and comfort measures when DPOA arrives. this was confirmed by myself as well. Care time : >50mins Result Diagram: 11/12/18 0501 11/12/18 0501 Results 24hrs Laboratory Tests Test 11/12/18 04:53 11/12/18 05:01 11/12/18 07:00 Lab Scanned Report BLOOD TRANSFUSION White Blood Count 6.5 Red Blood Count 4.37 # Hemoglobin 12.2 # Hematocrit 35.8 #L Mean Corpuscular Volume 81.9 L Mean Corpuscular 27.9 L Hemoglobin Mean Corpuscular 34.1 Hemoglobin Concent Red Cell Distribution 17.3 H Width Platelet Count 13 *L Mean Platelet Volume Immature Granulocytes % 0.800 H Neutrophils % Segmented Neutrophils 43 % (Manual) Band Neutrophils % 41 H (Manual) Lymphocytes % Lymphocytes % (Manual) 4 L Monocytes % Monocytes % (Manual) 2 Eosinophils % Eosinophils % (Manual) 2 Basophils % Metamyelocytes % 7 H (manual) Myelocytes % (Manual) 1 H Nucleated Red Blood 42 H Cells % Immature Granulocytes # 0.050 H Neutrophils # Neutrophils # (Manual) 3.0 Band Neutrophils # 2.6 H Lymphocytes (Manual) 0.2 L Lymphocytes # Monocytes # Monocytes # (Manual) 0.1 L Eosinophils # Basophils # Metamyelocytes # 0.4 H Myelocytes # 0.0 Nucleated Red Blood Cells # Toxic Granulation 2+ Platelet Estimate SIG DECREASED Giant Platelets 4 H Hypochromasia 1+ Poikilocytosis 2+ Anisocytosis 1+ Macrocytosis 1+ Sodium Level 130 L Potassium Level 4.0 Chloride Level 92 L Carbon Dioxide Level 23 Anion Gap 15 H Blood Urea Nitrogen 76 H Creatinine 0.92 Est Glomerular Filtrat > 60 Rate mL/min Glucose Level 144 Calcium Level 6.6 L Ionized Calcium 0.9 L (Measured) Phosphorus Level 6.5 #H Magnesium Level 2.2 Blood Gas Specimen Blood arterial Source Arterial Blood Date 11/12/2018 7:39:04 AM Drawn Arterial Blood pH 7.357 (Temp corrected) Arterial Blood pCO2 39.1 (Temp correct) Arterial Blood pO2 79.3 L (Temp corrected) Arterial Blood HCO3 21.4 L Arterial Blood Base -3.7 L Excess Arterial Blood 94.7 L Oxygen Saturation Frantz Test N/A Arterial Blood Gas Right Brachial Puncture Site Arterial 1.2 Blood Carboxyhemoglobin Arterial Blood 0.3 Methemoglobin Blood Gas A-a O2 269.4 H Differential Oxyhemoglobin Percent 93.3 Blood Gas Temperature 37.0 Blood Gas Respiration 20.0 Rate Blood Gas Actual 20 Respiration Rate Blood Gas Modality VENT - AC FiO2 55.0 Blood Gas Tidal Volume 500.0 Blood Gas Low PEEP 5.0 Setting Blood Gas Notified Whom TM Blood Gas Notified 11/12/2018 8:26:13 AM Time Exam/Review of Systems Exam Vitals Vital Signs Date Temp Pulse Resp B/P (MAP) Pulse Ox O2 O2 Flow FiO2 Time Delivery Rate 11/12/18 96 20 111/62 Mechanical 11:00 (78) Ventilator 11/12/18 55 08:00 11/12/18 97.0 08:00 11/12/18 100 02:45 Intake and Output 11/11/18 11/11/18 11/12/18 1515:00 23:00 07:00 IntakeIntake Total 1756.3700 ml 2281.30 ml 1284.87 ml OutputOutput Total 1000 ml 500 ml 550 ml BalanceBalance 756.3700 ml 1781.30 ml 734.87 ml Results Results 24hrs Laboratory Tests Test 11/12/18 04:53 11/12/18 05:01 11/12/18 07:00 Lab Scanned Report BLOOD TRANSFUSION White Blood Count 6.5 Red Blood Count 4.37 # Hemoglobin 12.2 # Hematocrit 35.8 #L Mean Corpuscular Volume 81.9 L Mean Corpuscular 27.9 L Hemoglobin Mean Corpuscular 34.1 Hemoglobin Concent Red Cell Distribution 17.3 H Width Platelet Count 13 *L Mean Platelet Volume Immature Granulocytes % 0.800 H Neutrophils % Segmented Neutrophils 43 % (Manual) Band Neutrophils % 41 H (Manual) Lymphocytes % Lymphocytes % (Manual) 4 L Monocytes % Monocytes % (Manual) 2 Eosinophils % Eosinophils % (Manual) 2 Basophils % Metamyelocytes % 7 H (manual) Myelocytes % (Manual) 1 H Nucleated Red Blood 42 H Cells % Immature Granulocytes # 0.050 H Neutrophils # Neutrophils # (Manual) 3.0 Band Neutrophils # 2.6 H Lymphocytes (Manual) 0.2 L Lymphocytes # Monocytes # Monocytes # (Manual) 0.1 L Eosinophils # Basophils # Metamyelocytes # 0.4 H Myelocytes # 0.0 Nucleated Red Blood Cells # Toxic Granulation 2+ Platelet Estimate SIG DECREASED Giant Platelets 4 H Hypochromasia 1+ Poikilocytosis 2+ Anisocytosis 1+ Macrocytosis 1+ Sodium Level 130 L Potassium Level 4.0 Chloride Level 92 L Carbon Dioxide Level 23 Anion Gap 15 H Blood Urea Nitrogen 76 H Creatinine 0.92 Est Glomerular Filtrat > 60 Rate mL/min Glucose Level 144 Calcium Level 6.6 L Ionized Calcium 0.9 L (Measured) Phosphorus Level 6.5 #H Magnesium Level 2.2 Blood Gas Specimen Blood arterial Source Arterial Blood Date 11/12/2018 7:39:04 AM Drawn Arterial Blood pH 7.357 (Temp corrected) Arterial Blood pCO2 39.1 (Temp correct) Arterial Blood pO2 79.3 L (Temp corrected) Arterial Blood HCO3 21.4 L Arterial Blood Base -3.7 L Excess Arterial Blood 94.7 L Oxygen Saturation Frantz Test N/A Arterial Blood Gas Right Brachial Puncture Site Arterial 1.2 Blood Carboxyhemoglobin Arterial Blood 0.3 Methemoglobin Blood Gas A-a O2 269.4 H Differential Oxyhemoglobin Percent 93.3 Blood Gas Temperature 37.0 Blood Gas Respiration 20.0 Rate Blood Gas Actual 20 Respiration Rate Blood Gas Modality VENT - AC FiO2 55.0 Blood Gas Tidal Volume 500.0 Blood Gas Low PEEP 5.0 Setting Blood Gas Notified Whom TM Blood Gas Notified 11/12/2018 8:26:13 AM Time Medications Medication Current Medications Phenylephrine HCl 80 mg/Dextrose 250 ml @ 18.75 mls/ hr TITRATE IV Last administered on 11/12/18 09:07; Admin Dose 56.25 MLS/HR; Start 11/09/18 at 00:30 Amiodarone HCl 900 mg/Dextrose 500 ml @ 0 mls/hr Q0M IV Last administered on 11/11/18 06:40; Admin Dose 16.66 MLS/HR; Start 11/09/18 at 01:00 Norepinephrine 32 mg/Dextrose 250 ml @ 0.47 mls/hr TITRATE IV Last administered on 11/11/18 15:15; Admin Dose 7.03 MLS/HR; Start 11/09/18 at 01:00 Vasopressin 60 unit/Dextrose 60 ml @ 1.2 mls/hr Q12H IV Last administered on 11/11/18 22:32; Admin Dose 2.4 MLS/HR; Start 11/09/18 at 01:00 KEANU JORGENSEN Nov 12, 2018 12:24
[2018-11-12] MEDS: VASOPRESSIN 60 UNIT in DEXTROSE 5% 57 ML IV SCH (13:00)
--- NOTE | 2018-11-12 14:14 | EN ---
Date/Time of Note Date/Time of Note DATE: 11/12/18 TIME: 14:13 Event Note Medicine Medicine Event Note Call to pronounce patient . Exam: Constitutional: other (unresponsive to deep sternal rub) Eyes: other (pupils fixed and dilated after at least 45s) Neck: other (no carotid pulses palpated or ascultated after at least 45s) Respiratory: other (no respiratory effort noted or ascultated after at least 45s) Cardiovascular: other (no cardiac pulses ascultated after at least 45s) Extremities: other (no femoral pulses palpated after at least 45s ) Neurological: unresponsive Assessment/Plan Patient Pronounced at 1409 JAMEELKEANU Nov 12, 2018 14:14
--- NOTE | 2018-11-12 14:18 | DES ---
Date/Time of Note Date/Time of Note DATE: 11/12/18 TIME: 14:15 Discharge/ Summary Admission/Discharge Info Admit Date/Time Nov 07, 2018 at 21:25 Final Diagnosis Severe sepsis with septic shock with eventual multiorgan failure and brain Persistent SVTs refractory to amiodarone drip likely 2/2 #3 Hypothyroidism with low TSH Acute ventilator dependent resp failure Bilateral pneumonia with Bacteroides fragilis bacteremia Influenza A infection Metastatic renal cell CA with bony mets and reported lung mets and chronic pain Recent pathologic fracture L femur from mets s/p repair Acute toxic metabolic encephalopathy (meds, sepsis) S/p pacemaker Dyslipidemia with low HDL and hypertriglyceridemia Severe anemia s/p transfusion 2 units prbcs, repeat Seizures likely 2/2 hypoxic brain injury Preliminary Cause of Septic shock with multiorgan failure . Hospital Course Unfortunate female with a history of metastatic renal cell cancer who had come in with respiratory distress and subsequent respiratory failure and altered mental status. She was managed for the diagnosis above. She was maintained in the intensive care unit on aggressive care throughout her short hospitalization. Unfortunately on the day of , she was assessed by physical exam and EEG and found to be based on EEG findings with concern for brain . Based on EKG findings, exam, family opted for terminal extubation and comfort measures. Patient passed not too long after. She was pronounced by myself at 1409 . Pending Labs/Cultures Laboratory Tests Test 11/12/18 04:53 11/12/18 05:01 11/12/18 07:00 Lab Scanned Report BLOOD TRANSFUSION White Blood Count 6.5 10^3/ul (4.8-10.8) Red Blood Count 4.37 10^6/ul (4.20-5.40) Hemoglobin 12.2 g/dl (12.0-16.0) Hematocrit 35.8 % (37.0-47.0) Mean Corpuscular 81.9 Volume fl (82.0-101.0) Mean Corpuscular 27.9 pg (29.0-33.0) Hemoglobin Mean Corpuscular 34.1 Hemoglobin Concent g/dl (32.0-37.0) Red Cell 17.3 % (11.5-14.5) Distribution Width Platelet Count 13 10^3/UL (140-415) Mean Platelet fl (7.4-10.4) Volume Immature 0.800 Granulocytes % % (0.001-0.429) Neutrophils % % (39.0-77.0) Segmented 43 % (39-77) Neutrophils % (Manual) Band Neutrophils % 41 % (0-4) (Manual) Lymphocytes % % (15.0-51.0) Lymphocytes % 4 % (15-51) (Manual) Monocytes % % (0.0-11.0) Monocytes % 2 % (0-11) (Manual) Eosinophils % % (0.0-7.0) Eosinophils % 2 % (0-7) (Manual) Basophils % % (0.0-2.0) Metamyelocytes % 7 % (0-0) (manual) Myelocytes % 1 % (0-0) (Manual) Nucleated Red Blood 42 % (0-0) Cells % Immature 0.050 Granulocytes # 10^3/ul (0.0-0.031) Neutrophils # 10^3/ul (1.6-7.5) Neutrophils # 3.0 (Manual) 10^3/ul (1.6-7.5) Band Neutrophils # 2.6 10^3/ul (0.0-0.6) Lymphocytes 0.2 (Manual) 10^3/ul (0.8-2.9) Lymphocytes # 10^3/ul (0.8-2.9) Monocytes # 10^3/ul (0.3-0.9) Monocytes # 0.1 (Manual) 10^3/ul (0.3-0.9) Eosinophils # 10^3/ul (0.0-0.5) Basophils # 10^3/ul (0.0-0.1) Metamyelocytes # 0.4 10^3/ul (0.0-0.0) Myelocytes # 0.0 10^3/ul (0.0-0.0) Nucleated Red Blood 10^3/ul (0.0-0.0) Cells # Toxic Granulation 2+ (0-0) Platelet Estimate SIG DECREASED Giant Platelets 4 % (0-0) Hypochromasia 1+ (0-0) Poikilocytosis 2+ (0-0) Anisocytosis 1+ (0-0) Macrocytosis 1+ (0-0) Sodium Level 130 mmol/L (135-144) Potassium Level 4.0 mmol/L (3.5-5.1) Chloride Level 92 mmol/L (97-110) Carbon Dioxide 23 mmol/L (21-31) Level Anion Gap 15 (5-13) Blood Urea 76 mg/dl (7-20) Nitrogen Creatinine 0.92 mg/dl (0.44-1.00) Est Glomerular > 60 mL/min (>60) Filtrat Rate mL/min Glucose Level 144 mg/dl (70-220) Calcium Level 6.6 mg/dl (8.4-10.2) Ionized Calcium 0.9 (Measured) mmol/L (1.1-1.4) Phosphorus Level 6.5 mg/dl (2.5-4.9) Magnesium Level 2.2 mg/dl (1.7-2.5) Blood Gas Specimen Blood arterial Source Arterial Blood Date 11/12/2018 7:39:04 AM Drawn Arterial Blood pH 7.357 (7.350-7.450) (Temp corrected) Arterial Blood pCO2 39.1 mmhg (35-45) (Temp correct) Arterial Blood pO2 79.3 (Temp corrected) mmHG (80-100.0) Arterial Blood 21.4 HCO3 mmol/L (22.0-26.0) Arterial Blood Base -3.7 Excess mmol/L (-3.0-3) Arterial Blood 94.7 Oxygen Saturation mmHG (95.0-98.0) Frantz Test N/A Arterial Blood Gas Right Brachial Puncture Site Arterial 1.2 % (0.0-3.0) Blood Carboxyhemogl obin Arterial Blood 0.3 % (0.0-1.5) Methemoglobin Blood Gas A-a O2 269.4 Differential mmHg (7.0-24.0) Oxyhemoglobin 93.3 % (93.0-99.0) Percent Blood Gas 37.0 C Temperature Blood Gas 20.0 Respiration Rate Blood Gas Actual 20 Respiration Rate Blood Gas Modality VENT - AC FiO2 55.0 % Blood Gas Tidal 500.0 mL Volume Blood Gas Low PEEP 5.0 cmH2O Setting Blood Gas Notified TM Whom Blood Gas Notified 11/12/2018 8:26:13 AM Time KEANU JORGENSEN Nov 12, 2018 14:18
== END 2018-11-12 14:09 | disposition expired | DRG 870 ==
LOC: E/R 20:19 → 6WM 21:25 → ICU 21:35
PROVIDERS: ADMIT Internal Medicine; ATTEND Family Medicine
PROC: 5A1955Z Respiratory Ventilation, Greater than 96 Consecutive Hours (ICD-10-PCS; principal; 2018-11-08)
PROC: 0BH17EZ Insertion of Endotracheal Airway into Trachea, Via Natural or Artificial Opening (ICD-10-PCS; 2018-11-08)
PROC: 30233N1 Transfusion of Nonautologous Red Blood Cells into Peripheral Vein, Percutaneous Approach (ICD-10-PCS; 2018-11-09)
PROC: 30233R1 Transfusion of Nonautologous Platelets into Peripheral Vein, Percutaneous Approach (ICD-10-PCS; 2018-11-11)
DX: A41.9 Sepsis, unspecified organism (principal); G92 Toxic encephalopathy; J69.0 Pneumonitis due to inhalation of food and vomit; J96.01 Acute respiratory failure with hypoxia; R65.21 Severe sepsis with septic shock; J10.08 Influenza due to other identified influenza virus with other specified pneumonia; N17.0 Acute kidney failure with tubular necrosis; J16.8 Pneumonia due to other specified infectious organisms; C64.9 Malignant neoplasm of unspecified kidney, except renal pelvis; C79.51 Secondary malignant neoplasm of bone; E87.1 Hypo-osmolality and hyponatremia; I47.1 Supraventricular tachycardia; I48.92 Unspecified atrial flutter; B96.6 Bacteroides fragilis [B. fragilis] as the cause of diseases classified elsewhere; D63.0 Anemia in neoplastic disease; D69.6 Thrombocytopenia, unspecified; E86.0 Dehydration; E87.5 Hyperkalemia; E03.9 Hypothyroidism, unspecified; E78.5 Hyperlipidemia, unspecified; G40.909 Epilepsy, unspecified, not intractable, without status epilepticus; G89.29 Other chronic pain; T40.605A Adverse effect of unspecified narcotics, initial encounter; Z95.0 Presence of cardiac pacemaker; Z85.828 Personal history of other malignant neoplasm of skin; Z87.891 Personal history of nicotine dependence
CPT/HCPCS: 31500; 36415; 36430; 36600; 70450; 71045; 76775; 80048; 80053; 80061; 80202; 81001; 82330; 82533; 82550; 82553; 82803; 82962; 83036; 83605; 83735; 84100; 84436; 84439; 84443; 84479; 84481; 84484; 85025; 85610; 85730; 86644; 86850; 86900; 86901; 86920; 87081; 87086; 87400; 89220; 93005; 93306; 93971; 94002; 94003; 94640; 94664; 94770; 95819; 96374; 96375; C9113; J0153; J0282; J0610; J0692; J1953; J2060; J2185; J2250; J2310; J2370; J2543; J3010; J3370; J7030; J7040; J7042; J7060; J7070; J7120; P9016; P9035; P9047